=== PATIENT | female | born 1960 | race Caucasian/White ===

== ENCOUNTER 2017-08-23 13:43 | Inpatient (IN) | payer MEDICARE, OTHER ==
[~2017-08-23] VITALS: Ht 165.1 cm; Wt 62.7 kg
[2017-08-23] MEDS ORDERED: ONDANSETRON 4 MG (ZOFRAN) ORAL DISSOLVE TAB PO PRN (16:15)
[2017-08-23] MEDS ORDERED: DICLOFENAC 1% GEL 100 GM (VOLTAREN) TUBE TOP PRN (16:30)
[2017-08-23 18:59] VITALS: BP 118/74
--- NOTE | 2017-08-23 20:00 | PM&R Post Admission Assessment ---
Post Admission Physician Asses The preadmission screen agrees with the post admission assessment that the patient is a good candidate for inpatient rehabilitation. The patient will have a comprehensive program of inpatient rehabilitation with a goal of maximizing level of functional independence prior to discharge home with spouse. The patient will have PT/OT ninety minutes per day, each discipline, five days a week for gait, strengthening, conditioning, balance, ADLs, any patient/family/caregiver training as necessary. Speech therapy to do cognitive assessment and treat as indicated. Rehabilitation nursing to assist with bowel, bladder, skin, wound care, medication administration, pain management. Curtain Framer to assist with discharge planning, community reentry. SCD's and heparin SubCut for DVT prophylaxis. She appears to be well motivated to participate in three hours of therapy a day. She should be able to tolerate three hours of therapy a day from a medical and surgical standpoint. She should benefit from the three hours of therapy a day. She has a reasonable discharge plan, reasonable discharge rehabilitation goals and a supportive family. She has various comorbidities that need to be closely monitored with medications and treatments adjusted on a daily basis as needed. These include: HX of Pulm Embolism Seizure prophylaxis DVT Prophylaxis Hx of breast Ca Postop headaches Barriers to discharge for this patient who had been independent prior to this are for her to be modified independent to supervision for ADLs and mobility skills prior to discharge home with spouse, so as to lessen the burden of the caregivers. Risks for this patient include: 1. Fall 2. Fracture 3. DVT 4. Pulmonary embolism 5. Wound infection 6. Skin breakdown 7. Contractures 8. Poorly controlled pain 9. Urinary retention 10. UTI 11. Respiratory infection 12. Aspiration 13.Postop crani seizures 14. Recurrent headaches Estimated Length of Stay: 14 days Prognosis: Rehab prognosis (Short term) appears good for goal of discharge home with spouse modified independent to supervision for ADLs and mobility skills. JANNETH BECKFORD MD Aug 23, 2017 8:00 pm
[2017-08-23] MEDS: ACETAMINOPHEN 325 MG TABLET/CAPLET (TYLENOL) PO PRN (20:26)
[2017-08-23] MEDS: GABAPENTIN 600 MG (NEURONTIN) TAB PO SCH (20:27)
[2017-08-23] MEDS: DOCUSATE SODIUM 100 MG (COLACE) CAP PO SCH (20:28)
[2017-08-23] MEDS: LEVETIRACETAM 500 MG (KEPPRA) TAB PO SCH (20:29)
[2017-08-23] MEDS: METHOCARBAMOL 500 MG (ROBAXIN) TABLET PO SCH (20:30)
--- NOTE | 2017-08-23 20:30 | HISTORY AND PHYSICAL ---
DATE OF SERVICE: CHIEF COMPLAINT: Difficulty with walking. 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 MRI revealed a mass. The patient was admitted to [facility] and had a resection of a posterior fossa skull base tumor with pathology revealing meningioma. The patient had Keppra and mannitol intraoperatively,and perioperative Ancef. The patient was subsequently placed on subq heparin for DVT prophylaxis and the procedure was done on 08/19/2017. The patient was started on therapies, found to be appropriate for inpatient rehabilitation and referred to inpatient rehabilitation here at [facility] so as to be closer to home. Currently, she is min assist for transfers and gait with a walker. 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 PAST SURGICAL HISTORY: Craniotomy as per above for resection of meningioma, right temporal lobe. Status post cataract extraction cataracts both eyes with insertion of intraocular lens, history of peripheral stem cell transplant. Breast cancer, status post mastectomy followed by chemo and radiation therapy. ALLERGIES: ADHESIVE TAPE, LATEX. FAMILY HISTORY: Noncontributory. SOCIAL HISTORY: is a retired fernandez. They live in a 2-story house in [place], [place]. She had been independent prior to this.PCP Dg [place] REVIEW OF SYSTEMS: Ten-point review of systems significant for weakness, gait imbalance, right temporal headache. MEDICATIONS: ASA 81 mg p.o. daily, Lidoderm patch topically daily, vitamin D 3000 units p.o. daily, calcium carbonate 600 mg p.o. daily, multivitamins with minerals one tablet p.o. daily, Colace 100 mg p.o. b.i.d., Keppra 500 mg p.o. b.i.d. Robaxin 500 mg p.o. b.i.d., Pred Forte 1% 1 to 2 drops to both eyes b.i.d., gabapentin 600 mg p.o. at bedtime, subcutaneous heparin 5000 units q.8 hours for DVT prophylaxis, Voltaren gel applied to the affected area q.i.d. p.r.n. pain, Zofran 4 mg p.o. q.6 hour for nausea and vomiting, OxyIR 5 to 10 mg p.o. q.4 hours p.r.n. severe pain, Tylenol 650 mg p.o. q.4 hours p.r.n. mild pain, vitamin B complex one tablet p.o. daily, Lotemax apply ointment to both eyes at bedtime daily. PHYSICAL EXAMINATION: GENERAL: Significant for a pleasant female lying in bed, alert and oriented, no acute distress. Complaining of right temporal headache. Nursing has been informed, they will bring Tylenol. VITAL SIGNS: She is afebrile, pulse is 89, respirations 18, blood pressure 118/74, O2 saturation 96% on room air. HEENT: Vision, speech, hearing grossly intact. No oral lesion is noted. She has bruising under the right eye. Craniotomy site on the right is healing well with saul in place. NECK: Supple without mass. HEART: Regular rhythm. LUNGS: Chest is clear. ABDOMEN: Soft, nontender. Bowel sounds present. EXTREMITIES: No lower leg edema, no calf tenderness. MUSCULOSKELETAL: The patient has functional active range of motion of all four extremities. She denies any prior joint or spinal surgery. NEUROLOGIC: Cognition exam by ST reveals mild STM loss. Sensation grossly intact to touch. Strength, she has 3+/5 strength in both upper limbs, good plus strength in both lower limbs. IMPRESSION: 1. Ambulatory dysfunction secondary to meningioma status post resection, craniotomy right temporal lobe. 2. Postoperative deep venous thrombosis prophylaxis, on heparin subq. 3. Postoperative seizure prophylaxis, on Keppra p.o. 4. History of breast cancer status post mastectomy with postop Chemo andradiation therapy. 5. History of pulmonary embolism. PLAN: The patient will have a comprehensive program of inpatient rehabilitation with goal of maximizing level of functional independence prior to discharge home with spouse. The patient will have PT, OT 5 days a week, 90 minutes per day each session for 2 weeks for gait, balance, strengthening, conditioning, ADLs, any patient, family, caregiver training necessary, any adaptive equipment training necessary. Speech therapy to do cognitive assessment and treat as indicated 3 to 5 times a week for 30-45 min per day for 2 weeks. Rehabilitation nursing to assist with bowel, bladder, skin, wound care, medication, nutrition and pain management. supervisor ship maintenance services to assist with discharge planning, community reentry. We will ask Dr. Ramsay to follow for any additional medical issues necessary postoperatively, Routine admission labs, Therapy with fall and seizure precautions. Follow up with her neurosurgeon and PCP upon discharge from rehabilitation. ESTIMATED LENGTH OF STAY: Fourteen days. PROGNOSIS: Rehab prognosis appears good for a goal of return home with spouse, modified independent to supervision for ADLs and mobility skills. DIET: Regular. CODE STATUS: Full code. Job ID: [id number] DocumentID: [id number] Dictated Date: 08/23/2017 19:55:11 Band Splitter Date: 08/23/2017 20:30:01 Dictated By: JANNETH BECKFORD MD MTDD
[2017-08-23] MEDS: LIDODERM PATCH REMOVAL TP SCH (20:34)
[2017-08-23] MEDS: prednisoLONE 1% OPTH (PRED FORTE) 5 ML BTL OU SCH (20:59)
[2017-08-24] MEDS: CALCIUM CARBONATE 600 MG (CALCARB) TAB PO SCH (06:19)
[2017-08-24] MEDS: MULTIVIT W/MINERALS TAB (THERAGRAN M) PO SCH (06:19)
[2017-08-24 06:20] VITALS: BP 117/69
--- NOTE | 2017-08-24 08:11 | Consultation ---
History of Present Illness History of Present Illness Patient Consulted On(alice/time) 08/24/17 08:07 Time Seen by Provider: 08:10 History of Present Illness Patient is from [facility]. Patient had diplopia. Patient had an MRI showing a mass. Patient sent to [facility] for surgery last Tuesday. Patient states she had a meningioma. 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 Waiting for report. Family history father heart attack age 75. Mother cervical cancer long time ago. Patient had stents cell transplant and breast cancer right. Patient has dry eyes Allergies and Home Medications Allergies Coded Allergies: adhesive tape (Verified Allergy, Unknown, RASH, 08/23/17) latex (Verified Allergy, Unknown, RASH, 08/23/17) Past Ibrfkgp-[id number]-Qbszdh Hx Patient Social History Alcohol Use: Denies Use Recreational Drug Use: No Smoking Status: Never a Smoker Recent Foreign Travel: No Contact w/Someone Who Travel: No Recent Infectious Disease Expo: No Recent Hopitalizations: Yes Immunizations Up To Date Date of Pneumonia Vaccine: Dec 16, 2014 Date of Influenza Vaccine: May 27, 2017 Seasonal Allergies Seasonal Allergies: No Surgeries History of Surgeries: Yes Surgeries: Breast Respiratory History of Respiratory Disorde: Yes Respiratory Disorders: COPD Cardiovascular History of Cardiac Disorders: Yes Neurological History of Neurological Disord: Yes Reproductive System Sexually Transmitted Disease: No HIV/AIDS: No Female Reproductive Disorders: Denies Genitourinary History of Genitourinary Disor: No Gastrointestinal History of Gastrointestinal Di: No Musculoskeletal History of Musculoskeletal Dis: Yes Musculoskeletal Disorders: Arthritis, Scoliosis Endocrine History of Endocrine Disorders: No HEENT History of HEENT Disorders: Yes HEENT Disorders: Cataract Loss of Vision: Denies Hearing Impairment: Denies Cancer History of Cancer: Yes (GVHD) Cancer: Breast Did You Recieve Any Treatments: Yes Type of Tx Receive: Chemotherapy, Radiation, Surgical Intervention Psychosocial History of Psychiatric Problem: No Integumentary History of Skin or Integumenta: No Family Medical History Family Medial History: FH: cancer 19 MOTHER FH: stroke 19 FATHER Review of Systems-General Constitutional: no symptoms reported EENTM: other (Previously diplopia) Respiratory: other (Lung function 61 percent) Cardiovascular: no symptoms reported Gastrointestinal: no symptoms reported Physical Exam-General Problems Physical Exam Vital Signs Vital Signs - First Documented 08/23/17 18:59 Temp 98.4 Pulse 89 Resp 18 B/P (MAP) 118/74 (89) Pulse Ox 96 O2 Delivery Room Air Capillary Refill : General Appearance: WD/WN Eyes: Bilateral Eye Normal Inspection HEENT: normal ENT inspection Neck: full range of motion Respiratory: chest non-tender, no respiratory distress, no accessory muscle use Cardiovascular: regular rate, rhythm, no murmur Gastrointestinal: non tender, soft Assessment/Plan Assessment/Plan Admission Diagnosis/Plan Brain mass. History of breast cancer. Stem cell transplant. To find out path report from Clinical Quality Measures DVT/VTE Risk/Contraindication: Risk Factor Score Per Nursin RFS Level Per Nursing on Admit: 4+=Very High JANIE MATHIS DO Aug 24, 2017 08:11
[2017-08-24] MEDS: METHOCARBAMOL 500 MG (ROBAXIN) TABLET PO SCH ×2 (08:49→20:57)
[2017-08-24] MEDS: VITAMIN D3 1,000 UNITS (CHOLECALCIFEROL) TABLET PO SCH (08:49)
[2017-08-24] MEDS: ASPIRIN E.C. 81 MG (ECOTRIN) TAB PO SCH (08:49)
[2017-08-24] MEDS: LEVETIRACETAM 500 MG (KEPPRA) TAB PO SCH ×2 (08:49→20:57)
[2017-08-24] MEDS: prednisoLONE 1% OPTH (PRED FORTE) 5 ML BTL OU SCH ×2 (08:51→20:59)
[2017-08-24] MEDS: DOCUSATE SODIUM 100 MG (COLACE) CAP PO SCH ×2 (08:52→20:57)
[2017-08-24] MEDS ORDERED: PATIENT MAY USE OWN MED,SINGLE MED PO SCH (09:00)
[2017-08-24] MEDS: LIDOCAINE (LIDODERM) 5% PATCH TOP SCH (10:00)
--- NOTE | 2017-08-24 10:29 | ST Cognitive Linguistic Eval ---
Speech Evaluation-General Medical Diagnosis s/p Craniotomy (right), Glioblastoma Therapy Diagnosis Therapy Diagnosis: Minimal to Mild Cognitive Deficit Precautions Precautions/Isolations: Seizure, Fall Prevention, Standard Precautions Referral Referring Physician: Dr. Hira Duron Reason for Referral: Evaluation/Treatment Cognitive Evaluation Medical History Pulmonary Embolism, Breast CA, MDS Current History The patient recently underwent a right craniotomy for removal of a posterior fossa skull base tumor. Reviewed History: Yes Speech PLF-Current Status Prior Level of Function The patient denied prior challenges with speech, language, and cognition. Per patient, "I have always had a hard time with people's names. I usually try to associate their name with something I can remember." Subjective The patient was seated upright in recliner upon entrance. The patient was agreeable to the cognitive evaluation, however, stated, "I am so sorry I am so sleepy. That warm shower really makes me want to curl up." (The patient recently completed a shower with OT). The patient is pleasant and cooperative throughout the evaluation. Language Eval: Auditory Comprehends Simple Yes/No Ques: Functional Indent/Objects Multiple Ruiz: Functional Ident/Pics in Multiple Ruiz: Functional Follows 1-Step Commands: Functional Follows Complex Directions: Functional Follows General Conversations: Functional Language Eval: Verbal Language Completes Spontaneous Greeting: Functional Produces Auto, Serial Info: Functional Imitates Simple Words/Phrases: Functional Word Finding: Functional Requests Basic Needs: Functional States Basic Personal Info: Functional The patient stated she speaks slightly more slowly than she did previously, however, stated it is due to the pain she is experiencing around the incision site. Cognitive Patient Orientation The patient is independently oriented to self, location, month, day of week, and year. Objective Cognitive Domain Attention: WNL Memory: Mild (The patient's long-term memory appears to be completely intact. The patient demonstrates high accuracy with short-term memory, however, displays delays in responses and increased difficulty.) Problem Solving: Functional Objective Oral Motor/Speech Production The patient demonstrates slight facial weakness, which may be secondary to edema following her craniotomy. The patient does speak at a reduced rate, however, stated this is due to the pain she experiences from the surgery and swelling. The patient remains 100% intelligible in known and unknown contexts. Impression The patient demonstrates a minimum to mild deficit in her memory abilities. The patient's long-term memory appears to be completely intact. The patient demonstrates high accuracy with short-term memory, however, displays delays in responses and increased difficulty. Due to the difficulties, the speech pathology plans to provide treatment on a short-term basis to make sure deficits resolve. Communication/Social Cognition Comprehension: 6 Expression: 5 Social Interaction: 6 Problem Solvin Memory: 4 Speech Patient Assess Expression of Ideas/Wants: Expression (4) Understanding [place] Content: Understands (4) Brief Interview-Mental Status: Yes Repetition of Three Words: Three (3) Temporal Orientation: Year: Correct (3) Temporal Orientation: Month: Accurate within 5 days(2) Temporal Orientation: Day: Correct (1) Recall : Wear to say "Sock": Yes, no cue required (2) Recall : Color: Yes, no cue required (2) Recall : Bed: Yes, no cue required (2) Speech Short Term Goals Short Term Goals Short Term Goals 1. The patient will recall three functional memory strategies for use at home with 90% accuracy, independently. 2. The patient will recall three items immediately and following a five minute delay with 80% accuracy and mild clinician verbal prompting. Time Frame-STG: Three Days Speech Penitentiary Goals Mechanical Maintenance Technician Goals 1. The patient will demonstrate improved cognitive skill, most notably, short- term memory for recall of ADL information for increased safety and function in the least restrictive setting. Time Frame: One Week Comprehension: 6 Expression: 5 Social Interaction: 6 Problem Solvin Memory: 5 Speech-Plan Treatment Plan Speech Therapy Treatment Plan: Continue Plan of Care Continue skilled speech pathology to target functional memory strategies for use at home. Treatment Duration: Aug 31, 2017 Frequency: 3 times per week Estimated Hrs Per Day: .5 hour per day Rehab Potential: Fair Safety Risks/Education Teaching Recipient: Patient Teaching Methods: Discussion Response to Teaching: Verbalize Understanding Education Topics Provided: Results, Recommendations, Plan of Care Time Speech Therapy Time In: 09:30 Speech Therapy Time Out: 09:45 Total Billed Time: 15 Billed Treatment Time 1, HELDER PEOPLES Aug 24, 2017 10:29
[2017-08-24] MEDS ORDERED: VITA1TAB17 PO (10:31)
[2017-08-24] MEDS ORDERED: MELO15TA39 PO (10:31)
[2017-08-24] MEDS ORDERED: ASPI-983 PO (10:31)
[2017-08-24] MEDS ORDERED: LIDO700A45 TP (10:31)
[2017-08-24] MEDS ORDERED: ACET325T38 PO (10:31)
[2017-08-24] MEDS ORDERED: ALEN70TA47 PO (10:31)
[2017-08-24] MEDS ORDERED: TROL85CR TP (10:31)
[2017-08-24] MEDS ORDERED: CARB15DR3 OU (10:31)
[2017-08-24] MEDS ORDERED: CALC1TAB PO (10:31)
[2017-08-24] MEDS ORDERED: LOTE3.5O OU (10:31)
[2017-08-24] MEDS ORDERED: CHOL10007 PO (10:31)
[2017-08-24] MEDS ORDERED: GABA-488 PO (10:31)
--- NOTE | 2017-08-24 10:48 | Physical Therapy Evaluation ---
PT Evaluation-General Medical Diagnosis Admission Date Aug 23, 2017 at 18:13 Medical Diagnosis: s/p Craniotomy (right), Glioblastoma Onset Date: Aug 19, 2017 Therapy Diagnosis Therapy Diagnosis: Debility, impaired functional mobility, strength, and activity tolerance Height/Weight Height (Feet): 5 Height (Inches): 5.00 Weight (Pounds): 137 Weight (Ounces): 7.0 Precautions Precautions/Isolations: Seizure, Fall Prevention, Standard Precautions Referral Physician: Hira Duron MD Reason for Referral: Evaluation/Treatment Medical History Pertinent Medical History: Arthritis, COPD Additional Medical History PAST MEDICAL HISTORY: Chronic GVHD complicating bone marrow transplantation, extensive bilateral dry eyes, 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 PAST SURGICAL HISTORY: Craniotomy as per above for resection of meningioma, right temporal lobe. Status post cataract extraction cataracts both eyes with insertion of intraocular lens, history of peripheral stem cell transplant. Breast cancer, status post mastectomy followed by chemo and radiation therapy. Current History Pt presented with diplopia and an MRI found a mass and was admitted to [facility] to perform craniotomy. Reviewed History: Yes Social History Home: Multilevel Current Living Status: Spouse Entry Into Home: Level Entry PT Steps Into Home: 0 PT Steps Inside Home: 12 Pt uses the stairs rarely. Prior/Core FIM Prior Level of Function Functional [place] Measure 0=Not Assessed/NA 4=Minimal Assistance 1=Total Assistance 5=Supervision or Setup 2=Maximal Assistance 6=Modified [place] 3=Moderate Assistance 7=Complete [place] Bed Mobility: 7 Transfers (B,C,W/C) (FIM): 7 Gait: 7 Locomotion: 7 PT Evaluation-Current Subjective Pt is sitting in recliner in room pre eval and agrees to PT with no reports of pain. Pain Numeric Pain Scale: 0-No Pain Location: No Pain Reported Pt/Family Goals [place] at home. Objective Patient Orientation: Person, Place, Situation Pt reports feeling tired and asks to go to bed numerous times throughout session. ROM/Strength ROM Lower Extremities WFL calderon Strenght Lower Extremities Grossly 4+/5 calderon Neuromuscular (Tone, Coordination, Reflexes) NT Sensory Vision: Functional Hearing: Functional Sensation Right Lower Extremit: Intact Sensation Left Lower Extremity: Intact Transfers Functional [place] Measure 0=Not Assessed/NA 4=Minimal Assistance 1=Total Assistance 5=Supervision or Setup 2=Maximal Assistance 6=Modified [place] 3=Moderate Assistance 7=Complete IndependenceIRFPAI Quality Coding Scale 6 Independent with activity with or without an assistive device 5 Patient requires set up or clean up by helper. Patient completes activity by themselves 4 Supervision or touching assist (CGA). [place] provide cues , steadying assist 3 The helper provides less than half the effort to complete the activity 2 The helper provides more than half the effort to complete the activity 1 Dependent. The helper does all the effort to complete an activity 7 Patient refused to complete or attempt activity 9 The patient did not perform the activity before the current illness or injury 88 Not attempted due to Medical conditions or safety concerns Transfers (B, C, W/C) (FIM): 4 Scootin Rollin Roll Left to Right (QC): 4 Supine to/from Sit: 5 Sit to/from Stand: 4 Sit to Lying (QC): 4 Lying to Sitting/Side of Bed(Q: 4 Sit to Stand (QC): 4 Chair/Lqd-te-Ptria Xfer(QC): 4 Car Transfer (QC): 4 SBA required for bed mobility and CGA needed for transfers. Gait Does the Patient Walk?: Yes Mode of Locomotion: Walk Anticipated Mode of Locomotion: Walk Gait (FIM): 4 Walk 10 feet (QC): 4 Walk 50 ft with 2 Turns(QC): 4 Walk 150 ft (QC): 4 Walking 10ft/uneven surface-QC: 4 Distance: 150 feet x1, 100 feet x1, 75 feet x1 Gait Level of Assist: 4 Gait Persons Needed: 1 Gait Assistive Device: FWW Comments/Gait Description Pt ambulates using reciprocal gait pattern and is steady throughout gait pattern. Wheelchair Training Does the Pt Use a Wheelchair?: No Stairs Stairs (FIM): 4 #of Steps: 12 Level of Assist: 4 1 Step (curb) (QC): 4 4 Steps (QC): 4 12 Steps (QC): 4 Balance Sitting Static: Normal Sitting Dynamic: Normal Standing Static: Good Standing Dynamic: Good Picking up an Object (QC): 4 Treatment Pt performed NuStep for 9 min at 4 workload Sitting exercise: Ankle pumps 10 x2 BLE, Heel slides 10 x2 BLE, Hip flexion 10 x2 BLE, Hip adduction/abduction 10 x2 BLE, LAQ 10 x2 BLE Assessment/Needs Pt demonstrates minimal weakness in BLE. Pt cannot achieve full AROM during hip flexion of the LLE. Pt perseverates on how tired she is and desire to lay down. Pt will benefit from PT services to address debility and functional mobility. Patient also scored a 24/28 indicating a low fall risk using an assistive device. Rehab Potential: Fair Post Rehab Potential-Barriers: Glioblastoma Equipment Needs FWW PT Short Term Goals Short Term Goals Time Frame: Aug 31, 2017 Transfers (B,C,W/C) (FIM): 5 Gait (FIM): 5 Gait Distance Comment: 200 feet Gait Level of Assist: 5 Gait Assistive Device: FWW PT Sales Contract Administrator Goals Skilled Nursing Goals PT Skilled Nursing Goals Time Frame: Sep 14, 2017 Transfers (B,C,W/C) (FIM): 6 Sit to Lying (QC): 6 Lying-Sitting on Side/Bed(QC): 6 Sit to Stand (QC): 6 Rollin Roll Left to Right (QC): 6 Chair/Oje-mc-Bdjlc Xfer(QC): 6 Car Transfer (QC): 6 Does the Patient Walk: Yes Gait (FIM): 6 Distance: 150 feet Walk 10 feet (QC): 6 Walk 10ft-Uneven Surface(QC): 6 Walk 50ft with 2 Turns (QC): 6 Walk 150 ft (QC): 6 Gait Level of Assist: 6 Gait Assistive Device: FWW Does the Pt use WC or Scooter?: No Stairs (FIM): 5 # of Steps: 12 1 Step (curb) (QC): 4 4 Steps (QC): 4 12 Steps (QC): 4 Stairs Level Of Assist: 5 Picking up an Object (QC): 5 PT Plan Problem List Problem List: Activity Tolerance, Functional Strength, Safety, Balance, Gait, Transfer, Bed Mobility, ROM Treatment/Plan Treatment Plan: Continue Plan of Care Treatment Plan: Bed Mobility, Education, Functional Activity Dorothy, Functional Strength, Group Therapy, Gait, Safety, Therapeutic Exercise, Transfers Treatment Duration: Sep 14, 2017 Frequency: At least 5 of 7 days/Wk (IRF) Estimated Hrs Per Day: 1.5 hours per day Patient and/or Family Agrees t: Yes Safety Risks/Education Patient Education: Gait Training, Transfer Techniques, Steps, Correct Positioning, Disease Process, Safety Issues Teaching Recipient: Patient Teaching Methods: Demonstration, Discussion Response to Teaching: Reinforcement Needed Discharge Recommendations Plan Pt will perform bed mobility and transfer training, gait and stair training, strength and activity tolerance training, balance training and education in order to promote independence at home. Therapy D/C Recommendations: Home w/ Family Support Equpiment Recommendations-D/C: Front Wheeled Walker Time/GCodes Time In: 1000 Time Out: 1100 Total Billed Treatment Time: 60 Total Billed Treatment 1 visit 30 min EVH 30 min EX AKILAH BRYAN PT Aug 24, 2017 10:48
--- NOTE | 2017-08-24 11:15 | Occupational Therapy Eval ---
OT Evaluation-General/PLF Medical Diagnosis Admission Date Aug 23, 2017 at 18:13 Medical Diagnosis: s/p Craniotomy (right), Glioblastoma Onset Date: Aug 16, 2017 Therapy Diagnosis Therapy Diagnosis: Weakness Height/Weight Height (Feet): 5 Height (Inches): 5.00 Weight (Pounds): 137 Weight (Ounces): 7.0 Precautions Precautions/Isolations: Seizure, Fall Prevention, Standard Precautions Safety Interventions: None Weight Bear Status Weight Bearing Restriction: Weight Bearing/Tolerated Referral Physician: Hira Duron MD Referral Reason: Activity Tolerance, Self Care, Evaluation/Treatment, Strengthening/ROM Medical History Additional Medical History pulmonary embolism, seizures, DVT, breast CA, peripheral stem cell transplant, mastectomy Current History Pt. had resection of glioblastoma multiforme in brain mass. Reviewed History: Yes Social History Home: Single Level Current Living Status: Spouse Entry Into Home: Level Entry Steps Into Home: 0 Steps Inside Home: 12 Pt. states that she does not have to use the stairs in the home. ADL-Prior Level of Function ADL PLOF Comments Pt. states that she was independent with basic self care skills prior to this surgery. DME/Equipment: Shower DME/Equipment Comments Pt. states that she does not have any equipment at home. Drive Self: Yes OT Current Status Subjective Pt. reports a "throbbing" sensation when working with OT. Nursing aware and has already given pt. pain medication. Appearance Pt. in bed. Alert and oriented. Agrees to work with OT. Mental Status/Objective Patient Orientation: Person, Place pt. does occasionally repeat herself. States that she is "bad" with names. Current Upper Extremity ROM WFL Upper Extremity Strength 3/5 bilateral UE strength ADL-Treatment Functional [place] Measure 0=Not Assessed/NA 4=Minimal Assistance 1=Total Assistance 5=Supervision or Setup 2=Maximal Assistance 6=Modified [place] 3=Moderate Assistance 7=Complete IndependenceIRFPAI Quality Coding Scale 6 Independent with activity with or without an assistive device 5 Patient requires set up or clean up by helper. Patient completes activity by themselves 4 Supervision or touching assist (CGA). [place] provide cues , steadying assist 3 The helper provides less than half the effort to complete the activity 2 The helper provides more than half the effort to complete the activity 1 Dependent. The helper does all the effort to complete an activity 7 Patient refused to complete or attempt activity 9 The patient did not perform the activity before the current illness or injury 88 Not attempted due to Medical conditions or safety concerns Grooming (FIM): 4 (SBA to brush teeth in stance at sink and min assist to comb hair due to saul and incision in head.) Oral Hygiene (QC): 4 Bathing (FIM): 4 (Min assist to wash hair and CGA in stance for balance. Pt. is able to wash all parts.) Shower/Bathe Self (QC): 4 Upper Body Dressing (FIM): 5 Upper Body Dressing (QC): 4 Lower Body Dressing (FIM): 4 (CGA in stance.) Lower Body Dressing (QC): 4 On/Off Footwear (QC): 5 Toileting (FIM): 4 (CGA in stance.) Toileting Hygiene (QC): 4 Transfers (B, C, W/C) (FIM): 4 Toilet/Commode Transfer (FIM): 4 Toilet Transfer (QC): 4 Shower Transfer (FIM): 4 Education OT Patient Education: Correct positioning, Modified ADL techniques, Progress toward Goal/Update tx plan, Purpose of tx/functional activities, Reviewed precautions, Rehab process, Transfer techniques Teaching Recipient: Patient Teaching Methods: Demonstration, Discussion Response to Teaching: Verbalize Understanding, Return Demonstration OT Short Term Goals Short Term Goals Time Frame: Aug 31, 2017 Eating(FIM): 5 Grooming(FIM): 5 Bathing(FIM): 5 Upper Body Dressing(FIM): 5 Lower Body Dressing(FIM): 5 Toileting(FIM): 5 Transfers (B,C,W/C) (FIM): 5 Toilet/Commode Transfer(FIM): 5 Shower Transfer(FIM): 5 Additional Short Term Goals: 1-Demonstrate ADL Tasks, 2-Verbalize Understanding , 3-ImproveStrength/Dorothy 1=Demonstrate adherence to instructed precautions during ADL tasks. 2=Patient will verbalize/demonstrate understanding of assistive devices/ modifications for ADL. 3=Patient will improve strength/tolerance for activity to enable patient to perform ADL's. OT [facility] Goals Marketing Ambassador Goals Time Frame: Sep 07, 2017 Eating (FIM): 6 Eating (QC): 6 Groomin Oral Hygiene (QC): 6 Bathing(FIM): 5 Shower/Bathe Self (QC): 5 Upper Body Dressing(FIM): 6 Upper Body Dressing (QC): 6 Lower Body Dressing(FIM): 6 Lower Body Dressing (QC): 6 On/Off Footwear (QC): 6 Toileting(FIM): 6 Toileting Hygiene (QC): 6 Transfers (B,C,W/C) (FIM): 6 Toilet/Commode Transfer(FIM): 6 Toilet/Commode Transfer (QC): 6 Shower Transfer(FIM): 5 Comprehension(FIM): 6 Expression (FIM): 5 Social Interaction(FIM): 6 Problem Solving(FIM): 6 Memory(FIM): 5 1=Demonstrate adherence to instructed precautions during ADL tasks. 2=Patient will verbalize/demonstrate understanding of assistive devices/ modifications for ADL. 3=Patient will improve strength/tolerance for activity to enable patient to perform ADL's. OT Education/Plan Problem List/Assessment Assessment: Decreased Activ Tolerance, Impaired I ADL's, Impaired Self-Care Skills Discharge Recommendations Plan/Recommendations: Continue POC Therapy D/C Recommendations: Home w/ Family Support, Occupational Therapy Home Care Equpiment Recommendations-D/C: Bath Chair Target Placement Home with spouse. Treatment Plan/Plan of Care Treatment,Training & Education: Yes Patient would benefit from OT for education, treatment and training to promote independence in ADL's, mobility, safety and/or upper extremity function for ADL' s. Plan of Care: ADL Retraining, Functional Mobility, Group Exercise/Act as Ind, UE Funct Exercise/Act Treatment Duration: Sep 07, 2017 Frequency: At least 5 of 7 days/Wk (IRF) Estimated Hrs Per Day: 1.5 hours per day Agreement: Yes Rehab Potential: Fair Time/GCodes Start Time: 08:30 Stop Time: 09:30 Total Time Billed (hr/min): 60 Billed Treatment Time 1, EVM x 15minutes, ADL x 45minutes TAHIR MARTINEZ OT Aug 24, 2017 11:15
--- NOTE | 2017-08-24 14:19 | PM & R (SOAP) Progress Note ---
Subjective Time Seen by Provider: 08:00 Subjective/Events-last exam Patient was seen in her room this AM Clarified Diagnosis with RN Appreciate therapy notes. patient min assist for transfers Review of Systems HEENT: Head Aches Neurological: Weakness Objective Exam Last Set of Vital Signs Vital Signs Date Time Temp Pulse Resp B/P (MAP) Pulse Ox O2 Delivery O2 Flow Rate FiO2 08/24/17 08:49 Room Air 08/24/17 06:20 98.4 71 17 117/69 (85) 96 Capillary Refill : I&O Intake and Output 08/24/17 00:00 Daily Weight Change Yes, 2-13 lbs General: Alert, Oriented X3, Cooperative, No Acute Distress, Other (crani site healing well) HEENT: Atraumatic, PERRLA, EOMI, Mucous Memb Moist/[place], Other (as per above) Neck: Supple, No JVD Lungs: Clear to Auscultation Heart: Regular Rate Abdomen: Normal Bowel Sounds, Soft Extremities: No Edema Skin: Other (crani site healing well) Neuro: Sensation Intact, Other (Mild STM loss Strength 3+/5 BUES 4+/5 BLES) Assessment/Plan Assessment S/P Crani and excision rt temtpral Meningioma Post op Headaches Post op anemia Post op seizure prophylaxis on Keppra Post op DVT Prophylaxis on Heparin SQ HX of Breast CA Plan Continue PT/OT/ST Team Conference held earlier this afternoon-See report for full functional update and POC and ELOS Patient has f/u with Physician at [facility] next week JANNETH BECKFORD MD Aug 24, 2017 14:19
--- NOTE | 2017-08-24 15:16 | Therapy Group Daily Note ---
Therapy Daily Group Note Patient Education Topic Other List Below (vehicle transfer techniques) Exercises LE Seated Exercise Other/Notes Pt. participated in PT OT group this date. Pt. came and went via FWW. Pt. was pleasant , introducing self and sharing special memories of her Mother. Pts. were introduced to vehicle TRF technique. TRF equipment present with pts taking turns TRFing and out if they so desired and were candidates for car TRF. All pts were very social and enjoyed coffee and hot chocolate as they shared and encouraged one another for a short time during group. This pt. to her room with SBA and FWW after. In bed with call garvin . Start Time: 13:00 Stop Time: 14:15 Total Billed Treatment Time: 75 Total Billed Treatment 1,GRP RENEE SALINAS IMPLEMENTATION MANAGER Aug 24, 2017 15:16
[2017-08-24 18:23] VITALS: BP 119/78
[2017-08-24] MEDS: LOTEPREDNOL OPTH OU SCH (20:55)
[2017-08-24] MEDS: GABAPENTIN 600 MG (NEURONTIN) TAB PO SCH (20:57)
[2017-08-24] MEDS: LIDODERM PATCH REMOVAL TP SCH (20:58)
[2017-08-24] MEDS: ACETAMINOPHEN 325 MG TABLET/CAPLET (TYLENOL) PO PRN (21:00)
[2017-08-25 05:35] VITALS: BP 125/76
[2017-08-25 06:27] LABS: BASOPHILS # (AUTO) 0.1 10^3/uL (0.0-0.1); BASOPHILS % (AUTO) 1 % (0-10); EOSINOPHILS # (AUTO) 0.4 10^3/uL (0.0-0.3); EOSINOPHILS % (AUTO) 4 % (0-10); HEMATOCRIT 31 % (35-52); HEMOGLOBIN 10.3 G/DL (11.5-16.0); LYMPHOCYTES # (AUTO) 3.5 X 10^3 (1.0-4.0); LYMPHOCYTES % (AUTO) 35 % (12-44); MEAN CORPUSCULAR HEMOGLOBIN 30 PG (25-34); MEAN CORPUSCULAR HGB CONC 33 G/DL (32-36); MEAN CORPUSCULAR VOLUME 91 FL (80-99); MEAN PLATELET VOLUME 10.2 FL (7.4-10.4); MONOCYTES % (AUTO) 10 % (0-12); NEUTROPHILS # (AUTO) 5.2 X 10^3 (1.8-7.8); NEUTROPHILS % (AUTO) 51 % (42-75); PLATELET COUNT 406 10^3/uL (130-400); RED BLOOD COUNT 3.46 10^6/uL (4.35-5.85); RED CELL DISTRIBUTION WIDTH 14.7 % (10.0-14.5); WHITE BLOOD COUNT 10.2 10^3/uL (4.3-11.0)
[2017-08-25] MEDS: CALCIUM CARBONATE 600 MG (CALCARB) TAB PO SCH (06:34)
[2017-08-25] MEDS: MULTIVIT W/MINERALS TAB (THERAGRAN M) PO SCH (06:34)
[2017-08-25 06:56] LABS: ALANINE AMINOTRANSFERASE 64 U/L (0-55); ALBUMIN 3.6 GM/DL (3.2-4.5); ALKALINE PHOSPHATASE 122 U/L (40-136); BILIRUBIN,TOTAL 0.4 MG/DL (0.1-1.0); BUN/CREATININE RATIO 15; CALCIUM 9.4 MG/DL (8.5-10.1); CARBON DIOXIDE 22 MMOL/L (21-32); CHLORIDE 103 MMOL/L (98-107); CREATININE SERUM 0.78 MG/DL (0.60-1.30); GFR ESTIMATED > 60; GLUCOSE 94 MG/DL (70-105); POTASSIUM 4.1 MMOL/L (3.6-5.0); SODIUM 140 MMOL/L (135-145); TOTAL PROTEIN 6.5 GM/DL (6.4-8.2)
--- NOTE | 2017-08-25 08:12 | Progress Note (SOAP) ---
Subjective Time Seen by Provider: 08:07 Subjective/Events-last exam Brain tumor. Patient had pain right side of face. Patient had a meningioma removed Objective Exam Vital Signs Date Time Temp Pulse Resp B/P (MAP) Pulse Ox O2 Delivery O2 Flow Rate FiO2 08/25/17 05:35 97.9 80 17 125/76 (92) 96 Room Air 08/24/17 21:00 Room Air 08/24/17 18:23 97.6 73 16 119/78 (92) 94 Room Air 08/24/17 08:49 Room Air I & O 08/25/17 07:00 Intake Total 1860 ml Output Total 1600 ml Balance 260 ml Capillary Refill : General Appearance: No Apparent Distress, Thin Results Lab Laboratory Tests 08/25/17 05:30: White Blood Count 10.2, Red Blood Count 3.46L, Hemoglobin 10.3L, Hematocrit 31L , Mean Corpuscular Volume 91, Mean Corpuscular Hemoglobin 30, Mean Corpuscular Hemoglobin Concent 33, Red Cell Distribution Width 14.7H, Platelet Count 406H, Mean Platelet Volume 10.2, Neutrophils (%) (Auto) 51, Lymphocytes (%) (Auto) 35 , Monocytes (%) (Auto) 10, Eosinophils (%) (Auto) 4, Basophils (%) (Auto) 1, Neutrophils # (Auto) 5.2, Lymphocytes # (Auto) 3.5, Monocytes # (Auto) 1.0, Eosinophils # (Auto) 0.4H, Basophils # (Auto) 0.1, Sodium Level 140, Potassium Level 4.1, Chloride Level 103, Carbon Dioxide Level 22, Anion Gap 15H, Blood Urea Nitrogen 12, Creatinine 0.78, Estimat Glomerular Filtration Rate > 60, BUN/ Creatinine Ratio 15, Glucose Level 94, Calcium Level 9.4, Total Bilirubin 0.4, Aspartate Amino Transf (AST/SGOT) 24, Alanine Aminotransferase (ALT/SGPT) 64H, Alkaline Phosphatase 122, Total Protein 6.5, Albumin 3.6 Assessment/Plan Assessment/Plan Assess & Plan/Chief Complaint Brain mass. History of breast cancer. Stem cell transplant. To find out path report from . . Brain tumor meningioma. History of breast cancer. Stem cell transplant. Patient had some pain in the right side of face. To monitor Clinical Quality Measures DVT/VTE Risk/Contraindication: Risk Factor Score Per Nursin RFS Level Per Nursing on Admit: 4+=Very High JANIE MATHIS DO Aug 25, 2017 08:12
[2017-08-25] MEDS: VITAMIN D3 1,000 UNITS (CHOLECALCIFEROL) TABLET PO SCH (08:57)
[2017-08-25] MEDS: METHOCARBAMOL 500 MG (ROBAXIN) TABLET PO SCH ×2 (08:57→21:13)
[2017-08-25] MEDS: ASPIRIN E.C. 81 MG (ECOTRIN) TAB PO SCH (08:57)
[2017-08-25] MEDS: DOCUSATE SODIUM 100 MG (COLACE) CAP PO SCH ×2 (08:57→21:11)
[2017-08-25] MEDS: LEVETIRACETAM 500 MG (KEPPRA) TAB PO SCH ×2 (08:57→21:11)
[2017-08-25] MEDS: LIDOCAINE (LIDODERM) 5% PATCH TOP SCH (09:00)
[2017-08-25] MEDS: prednisoLONE 1% OPTH (PRED FORTE) 5 ML BTL OU SCH ×2 (09:00→21:13)
--- NOTE | 2017-08-25 09:37 | PM & R (SOAP) Progress Note ---
Subjective Time Seen by Provider: 07:49 Subjective/Events-last exam Patient was seen in her room this AM. Patient min assist for transfers Patient concerned re rt ear popping last night now resolved No visible drainage noted externally Patient reassured and hearing functional Objective Exam Last Set of Vital Signs Vital Signs Date Time Temp Pulse Resp B/P (MAP) Pulse Ox O2 Delivery O2 Flow Rate FiO2 08/25/17 09:00 Room Air 08/25/17 05:35 97.9 80 17 125/76 (92) 96 Capillary Refill : I&O Intake and Output 08/25/17 00:00 Intake Total 1160 ml Output Total 1000 ml Balance 160 ml Intake Oral 1160 ml Output Urine Total 1000 ml # Voids 2 General: Alert, Oriented X3, Cooperative, No Acute Distress, Other (crani site healing well) HEENT: Atraumatic, PERRLA, EOMI, Mucous Memb Moist/[place], Other (as per above) Neck: Supple, No JVD Lungs: Clear to Auscultation Heart: Regular Rate Abdomen: Normal Bowel Sounds, Soft Extremities: No Edema Skin: Other (crani site healing well) Neuro: Sensation Intact, Other (Mild STM loss Strength 3+/5 BUES 4+/5 BLES) Results Lab Laboratory Tests 08/25/17 05:30: White Blood Count 10.2, Red Blood Count 3.46L, Hemoglobin 10.3L, Hematocrit 31L , Mean Corpuscular Volume 91, Mean Corpuscular Hemoglobin 30, Mean Corpuscular Hemoglobin Concent 33, Red Cell Distribution Width 14.7H, Platelet Count 406H, Mean Platelet Volume 10.2, Neutrophils (%) (Auto) 51, Lymphocytes (%) (Auto) 35 , Monocytes (%) (Auto) 10, Eosinophils (%) (Auto) 4, Basophils (%) (Auto) 1, Neutrophils # (Auto) 5.2, Lymphocytes # (Auto) 3.5, Monocytes # (Auto) 1.0, Eosinophils # (Auto) 0.4H, Basophils # (Auto) 0.1, Sodium Level 140, Potassium Level 4.1, Chloride Level 103, Carbon Dioxide Level 22, Anion Gap 15H, Blood Urea Nitrogen 12, Creatinine 0.78, Estimat Glomerular Filtration Rate > 60, BUN/ Creatinine Ratio 15, Glucose Level 94, Calcium Level 9.4, Total Bilirubin 0.4, Aspartate Amino Transf (AST/SGOT) 24, Alanine Aminotransferase (ALT/SGPT) 64H, Alkaline Phosphatase 122, Total Protein 6.5, Albumin 3.6 Assessment/Plan Assessment S/P Crani and excision rt temtpral Meningioma Post op Headaches Post op anemia Post op seizure prophylaxis on Keppra Post op DVT Prophylaxis on Heparin SQ HX of Breast CA Plan Continue PT/OT/ST Team Conference held yesterday-See report for full functional update and POC and ELOS Patient has f/u with Physician at [facility] next week Do otoscopic exam if ant further complaints re above JANNETH BECKFORD MD Aug 25, 2017 09:37
--- NOTE | 2017-08-25 10:17 | Speech Therapy Daily Note ---
Speech Daily Progress Note Subjective Date Seen by Provider: Aug 25, 2017 Time Seen by Provider: 08:30 The patient was seated upright in bed, watching TV, upon entrance. The patient greeted the clinician approximately and was agreeable to participation in the cognitive treatment session. Per patient, "I am going to shut this TV off. My attention tends to wonder and this TV will make that more difficult." This statements demonstrates improved awareness of known deficits. Assessment Assessment Current Status: Good Progress Treatment Plan Continue Plan of Care Communication Comprehension: 6 Expression: 5 Social Cognition Social Interaction: 6 Problem Solvin Memory: 4 Speech Short Term Goals Short Term Goals Short Term Goals 1. The patient will recall three functional memory strategies for use at home with 90% accuracy, independently. 2. The patient will recall three items immediately and following a five minute delay with 80% accuracy and mild clinician verbal prompting. Time Frame-STG: Three Days Speech Meter Installer Goals Meter Installer Goals 1. The patient will demonstrate improved cognitive skill, most notably, short- term memory for recall of ADL information for increased safety and function in the least restrictive setting. Time Frame: One Week Comprehension: 6 Expression: 5 Social Interaction: 6 Problem Solvin Memory: 5 Speech-Plan Treatment Plan Speech Therapy Treatment Plan: Continue Plan of Care Continue skilled speech pathology to target functional memory problem solving. Treatment Duration: Aug 31, 2017 Frequency: 3 times per week Estimated Hrs Per Day: .5 hour per day Rehab Potential: Fair Safety Risks/Education Teaching Recipient: Patient Teaching Methods: Discussion Response to Teaching: Verbalize Understanding Education Topics Provided: Memory Strategies Time Speech Therapy Time In: 08:30 Speech Therapy Time Out: 09:00 Total Billed Time: 30 Billed Treatment Time 1, HELDER ASHER Aug 25, 2017 10:17
--- NOTE | 2017-08-25 11:01 | Physical Therapy Daily Note ---
PT Daily Note-Current Subjective Pt is laying in bed pre tx and has no complaints of pain and agrees to PT. Pain Numeric Pain Scale: 0-No Pain Location: No Pain Reported Appearance Pt is laying in bed post tx with nurse call, phone, and tray within reach. Mental Status Patient Orientation: Normal For Age Transfers Functional [place] Measure 0=Not Assessed/NA 4=Minimal Assistance 1=Total Assistance 5=Supervision or Setup 2=Maximal Assistance 6=Modified [place] 3=Moderate Assistance 7=Complete IndependenceIRFPAI Quality Coding Scale 6 Independent with activity with or without an assistive device 5 Patient requires set up or clean up by helper. Patient completes activity by themselves 4 Supervision or touching assist (CGA). [place] provide cues , steadying assist 3 The helper provides less than half the effort to complete the activity 2 The helper provides more than half the effort to complete the activity 1 Dependent. The helper does all the effort to complete an activity 7 Patient refused to complete or attempt activity 9 The patient did not perform the activity before the current illness or injury 88 Not attempted due to Medical conditions or safety concerns Transfers (B, C, W/C) (FIM): 5 Sit to/from Stand: 5 Bed to/from Chair: 5 Pt requires SBA for transfers. Gait Training Does the Patient Walk?: Yes Gait (FIM): 5 Distance: 200 feet x1, 150 feet x1 Gait Level of Assist: 5 Gait Persons Needed: 1 Gait Assistive Device: None Pt is able to walk 200 feet without use of assistive device. Pt slows gait during cognitive task. No LOB or unsteadiness. Wheelchair Training Does the Pt Use a Wheelchair?: No Exercises NuStep Minutes: 15 NuStep Workload: 4 Treatments Pt performed the Lopez Balance Test, gait training, and LE exercise. Assessment Current Status: Good Progress Pt scored a 53/56 on the Lopez Balance Test, indicating low fall risk. Pt does not need an AD during ambulation. Pt slows gait during cognitive task, but is safe throughout gait cycle. PT Short Term Goals Short Term Goals Time Frame: Aug 31, 2017 Transfers (B,C,W/C) (FIM): 5 Gait (FIM): 5 Gait Distance Comment: 200 feet Gait Level of Assist: 5 Gait Assistive Device: FWW PT Senior Living Goals Senior Living Goals PT Senior Living Goals Time Frame: Sep 14, 2017 Transfers (B,C,W/C) (FIM): 6 Sit to Lying (QC): 6 Lying-Sitting on Side/Bed(QC): 6 Sit to Stand (QC): 6 Rollin Roll Left to Right (QC): 6 Chair/Wsx-ij-Juyis Xfer(QC): 6 Car Transfer (QC): 6 Does the Patient Walk: Yes Gait (FIM): 6 Distance: 150 feet Walk 10 feet (QC): 6 Walk 10ft-Uneven Surface(QC): 6 Walk 50ft with 2 Turns (QC): 6 Walk 150 ft (QC): 6 Gait Level of Assist: 6 Gait Assistive Device: FWW Does the Pt use WC or Scooter?: No Stairs (FIM): 5 # of Steps: 12 1 Step (curb) (QC): 4 4 Steps (QC): 4 12 Steps (QC): 4 Stairs Level Of Assist: 5 Picking up an Object (QC): 5 PT Plan Problem List Problem List: Activity Tolerance, Functional Strength, Safety, Balance, Gait, Transfer, Bed Mobility, ROM Treatment/Plan Treatment Plan: Continue Plan of Care Treatment Plan: Bed Mobility, Education, Functional Activity Dorothy, Functional Strength, Group Therapy, Gait, Safety, Therapeutic Exercise, Transfers Treatment Duration: Sep 14, 2017 Frequency: At least 5 of 7 days/Wk (IRF) Estimated Hrs Per Day: 1.5 hours per day Patient and/or Family Agrees t: Yes Safety Risks/Education Patient Education: Gait Training, Transfer Techniques, Correct Positioning, Safety Issues Teaching Recipient: Patient Teaching Methods: Demonstration, Discussion Response to Teaching: Reinforcement Needed Time/GCodes Time In: 1000 Time Out: 1100 Total Billed Treatment Time: 60 Total Billed Treatment 1 visit 15 min EX 15 min GT 30 min AKILAH CORTES PT Aug 25, 2017 11:01
--- NOTE | 2017-08-25 11:43 | Individualized Plan of Care ---
Individualized Plan of Care Rehab Nursing IPOC Order Admission Date Aug 23, 2017 at 18:13 Current Orders Orders Admission-Acute Rehab Unit (08/23/17 16:07) Vital Signs: Routine 08,16,00 (08/23/17 16:07) Environmental Associate-Inpt Rehab (08/23/17 16:07) Rehab Nursing Orders-Ipoc (08/23/17 16:07) Physical Therapy Rehab Orders (08/23/17 16:07) Occupational Therapy Rehab Ord (08/23/17 16:07) Speech Therapy Rehab Orders (08/23/17 16:07) General/Regular (08/23/17 Dinner) Turn And Reposition Q2HR (08/23/17 16:07) Intake & Output 06,14,22 (08/23/17 16:07) Precautions (Aru) (08/23/17 16:07) Weekly Weight (Lbs) WEEK (08/23/17 16:07) Docusate Sodium Capsule (Colace Capsule) (08/23/17 21:00) Heparin Injection (Heparin Injection) (08/23/17 20:00) Levetiracetam Tablet (Keppra Tablet) (08/23/17 21:00) Methocarbamol Tablet (Robaxin Tablet) (08/23/17 21:00) Ondansetron Oral Dissolve Tab (Zofran (08/23/17 16:15) Oxycodone Immediate Rel Tablet (Oxyir Ta (08/23/17 16:15) Prednisolone 1% Ophthalmic Debbie (Pred For (08/23/17 21:00) Acetaminophen Tablet/Caplet (Tylenol T (08/23/17 16:15) Aspirin Enteric Coated Tablet (Ecotrin T (08/24/17 09:00) Gabapentin Capsule/Tablet (Neurontin Cap (08/23/17 21:00) Lidocaine Patch (Lidoderm 5% Patch) (08/24/17 09:00) Calcium Carbonate Tablet (Calcarb 600 Ta (08/24/17 07:00) Cholecalciferol Capsule/Tablet (Vitamin (08/24/17 09:00) Therapeutic Multivitamin Tab (Vitamins, (08/24/17 07:00) Pharmacy Communication (Pharmacy Communi (08/23/17 16:15) Diclofenac 1% Gel (Voltaren 1% Gel) (08/23/17 16:30) Ambulate TID (08/23/17 17:09) Sequential Compression Device 08,20 (08/23/17 17:09) Dvt/Vte Risk - Notifiy Physici 08 (08/23/17 17:09) Patch Removal (Patch Removal) (08/23/17 21:00) Consult Physician (08/23/17 19:56) Patient May Use Own Med,Single (Patient (08/24/17 09:00) Loteprednol (Non-Formulary) (Lotemax 0.5 (08/24/17 21:00) Patient Visit (08/24/17 ) Speech Sound Lang Comp (08/24/17 ) Follow-Up Appointment (08/24/17 12:37) Patient Visit (08/24/17 ) Pt Eval High Complexity (08/24/17 ) Exercise Therap, Ea 15 Min (08/24/17 ) Cbc With Automated Diff (08/25/17 06:00) Comprehensive Metabolic Panel (08/25/17 06:00) Patient Visit (08/24/17 ) Therapeutic, Group (08/24/17 ) Rehab Nursing Orders: Diseage Management, Hydration Management, Pain Management Other Nursing Orders: Monitor for postop constipation and urinary retention PT IPOC Problem List: Activity Tolerance, Functional Strength, Safety, Balance, Gait, Transfer, Bed Mobility, ROM Treatment Plan: Continue Plan of Care Bed Mobility, Education, Functional Activity Dorothy, Functional Strength, Group Therapy, Gait, Safety, Therapeutic Exercise, Transfers Treatment Duration: Sep 14, 2017 Frequency: At least 5 of 7 days/Wk (IRF) Estimated Hrs Per Day: 1.5 hours per day OT IPOC Problems: Decreased Activ Tolerance, Decreased UE Strength, Dependent Transfers , Impaired Bed Mobility, Impaired Cognition, Impaired Funct Balance, Impaired I ADL's, Impaired Self-Care Skills OT Treatment, Training and Edu: Yes Plan of Care: ADL Retraining, Functional Mobility, Group Exercise/Act as Ind, UE Funct Exercise/Act Treatment Duration: Sep 07, 2017 Frequency: At least 5 of 7 days/Wk (IRF) Estimated Hrs Per Day: 1.[address] IPOC Speech Therapy Treatment Plan: Continue Plan of Care Treatment Duration: Aug 31, 2017 Frequency: 3 times per week Estimated Hrs Per Day: .5 hour per day Environmental Associate/Case Mgmt Environmental Associate/Case Managemen: Discharge Planning, Patient/Family Counseling Physician IPOC Medical Issues being managed closely and that require the 24 hour availability of a physician:Postop headaches and anemia filamentary keratitis of left eye Medical Issues: Bowel/Bladder Function, DVT Prophylaxis, Falls Precautions, Infection Protection, Pain Management, Wound Care, Other (List) (as per above) Brief Synthesis of Preadmission Screen, Post-Admission Evaluation, and Therapy Evaluations: 57 yo female s/p rt temporal craniotomy for resection of meningioma causing diplopia and gait imbalance performed at O[facility] Referred to IRU here for ongoing care and therapies Lives in [place] with spouse Had been Independent HX of PULM embolism and Breast CA as weel as per above Medical Prognosis: Good Anticipated Length of Stay: 3-14-18 Rehab Goals Modified Independent to supervsion for adls and mobility skills [facility] CODE 02.1 Etiologic DX RT Petroclival meningioma Anticipated discharge destinat: Home with spouse and [facility] JANNETH BECKFORD MD Aug 25, 2017 11:43
--- NOTE | 2017-08-25 14:00 | Physical Therapy Daily Note ---
PT Daily Note-Current Subjective Pt is laying in bed eating lunch pre tx and agrees to PT with c/o pain at 6/10 at the same side of her face as the craniotomy, right. Mother present. Pain Numeric Pain Scale: 5-Moderate Pain Location: Right Location Body Site: Face Appearance Pt is laying in bed post tx with nurse call, phone, and tray within reach. Mother present. Mental Status Patient Orientation: Normal For Age Transfers Functional [place] Measure 0=Not Assessed/NA 4=Minimal Assistance 1=Total Assistance 5=Supervision or Setup 2=Maximal Assistance 6=Modified [place] 3=Moderate Assistance 7=Complete IndependenceIRFPAI Quality Coding Scale 6 Independent with activity with or without an assistive device 5 Patient requires set up or clean up by helper. Patient completes activity by themselves 4 Supervision or touching assist (CGA). [place] provide cues , steadying assist 3 The helper provides less than half the effort to complete the activity 2 The helper provides more than half the effort to complete the activity 1 Dependent. The helper does all the effort to complete an activity 7 Patient refused to complete or attempt activity 9 The patient did not perform the activity before the current illness or injury 88 Not attempted due to Medical conditions or safety concerns Transfers (B, C, W/C) (FIM): 5 Supine to/from Sit: 6 Sit to/from Stand: 5 Bed to/from Chair: 5 Mod I with supine to sit at edge of bed. Pt requires SBA for transfers to ensure safety. Gait Training Does the Patient Walk?: Yes Gait (FIM): 5 Distance: 200 feet x1, 150 feet x1 Gait Level of Assist: 5 Gait Persons Needed: 1 Gait Assistive Device: None Pt walks steadily with reciprocal gait pattern and without LOB. Wheelchair Training Does the Pt Use a Wheelchair?: No Exercises Standing: Hip Abduction (20 x1 BLE), Hamstring curls (20 x1 BLE), Heel/toe raises (20 x2 BLE), Marching (10 x2 BLE), Mini squats (20 x1 BLE) Standing hip extension: 20 x1 BLE Treatments Pt performed functional mobility, gait training, standing exercises. Assessment Current Status: Good Progress Pt performed all exercise with excellent activity tolerance. Pt demonstrates motivation as she desires to go home soon. PT Short Term Goals Short Term Goals Time Frame: Aug 31, 2017 Transfers (B,C,W/C) (FIM): 5 Gait (FIM): 5 Gait Distance Comment: 200 feet Gait Level of Assist: 5 Gait Assistive Device: FWW PT Long-Term Goals Long-Term Goals PT Long-Term Goals Time Frame: Sep 14, 2017 Transfers (B,C,W/C) (FIM): 6 Sit to Lying (QC): 6 Lying-Sitting on Side/Bed(QC): 6 Sit to Stand (QC): 6 Rollin Roll Left to Right (QC): 6 Chair/Ynt-nz-Hjfut Xfer(QC): 6 Car Transfer (QC): 6 Does the Patient Walk: Yes Gait (FIM): 6 Distance: 150 feet Walk 10 feet (QC): 6 Walk 10ft-Uneven Surface(QC): 6 Walk 50ft with 2 Turns (QC): 6 Walk 150 ft (QC): 6 Gait Level of Assist: 6 Gait Assistive Device: FWW Does the Pt use WC or Scooter?: No Stairs (FIM): 5 # of Steps: 12 1 Step (curb) (QC): 4 4 Steps (QC): 4 12 Steps (QC): 4 Stairs Level Of Assist: 5 Picking up an Object (QC): 5 PT Plan Problem List Problem List: Activity Tolerance, Functional Strength, Safety, Balance, Gait, Transfer, Bed Mobility, ROM Treatment/Plan Treatment Plan: Continue Plan of Care Treatment Plan: Bed Mobility, Education, Functional Activity Dorothy, Functional Strength, Group Therapy, Gait, Safety, Therapeutic Exercise, Transfers Treatment Duration: Sep 14, 2017 Frequency: At least 5 of 7 days/Wk (IRF) Estimated Hrs Per Day: 1.5 hours per day Patient and/or Family Agrees t: Yes Safety Risks/Education Patient Education: Gait Training, Transfer Techniques, Correct Positioning, Safety Issues Teaching Recipient: Patient Teaching Methods: Demonstration, Discussion Response to Teaching: Reinforcement Needed Time/GCodes Time In: 1300 Time Out: 1330 Total Billed Treatment Time: 30 Total Billed Treatment 1 visit 30 min EX ALEXANDRIA FRANCES PT Aug 25, 2017 14:00
--- NOTE | 2017-08-25 14:28 | Occupational Ther Daily Note ---
OT Current Status-Daily Note Subjective No pain reported. Appearance Pt. in bed. Agrees to work with OT. Mental Status/Objective Patient Orientation: Person, Place, Time, Situation Functional [place] Measure 0=Not Assessed/NA 4=Minimal Assistance 1=Total Assistance 5=Supervision or Setup 2=Maximal Assistance 6=Modified [place] 3=Moderate Assistance 7=Complete [place] ADL-Treatment Functional [place] Measure 0=Not Assessed/NA 4=Minimal Assistance 1=Total Assistance 5=Supervision or Setup 2=Maximal Assistance 6=Modified [place] 3=Moderate Assistance 7=Complete IndependenceIRFPAI Quality Coding Scale 6 Independent with activity with or without an assistive device 5 Patient requires set up or clean up by helper. Patient completes activity by themselves 4 Supervision or touching assist (CGA). [place] provide cues , steadying assist 3 The helper provides less than half the effort to complete the activity 2 The helper provides more than half the effort to complete the activity 1 Dependent. The helper does all the effort to complete an activity 7 Patient refused to complete or attempt activity 9 The patient did not perform the activity before the current illness or injury 88 Not attempted due to Medical conditions or safety concerns Grooming (FIM): 5 (Set up to comb hair and brush teeth.) Oral Hygiene (QC): 5 Bathing (FIM): 5 (SBA to wash all parts in the shower.) Shower/Bathe Self (QC): 4 Upper Body (FIM): 5 Upper Body Dressing (QC): 4 Lower Body Dressing (FIM): 5 Lower Body Dressing (QC): 4 On/Off Footwear (QC): 4 Toileting (FIM): 5 (SBA to toilet self.) Toileting Hygiene (QC): 5 Transfers (B, C, W/C) (FIM): 5 (SBA without equipment to and from therapy gym from room.) Toilet/Commode Transfer (FIM): 5 Toilet Transfer (QC): 5 Shower Transfer(FIM): 5 Other Treatment After showering, pt. agreed to ambulate to therapy gym. Tolerated 15 minutes on armbike at mod resistance to increase overall strength and independence with daily tasks. Pt. tolerated this well with several brief rest breaks. Pt. does verbalize that she gets very tired after showering. After ambulating back to room, pt. all needs met. Pt. tolerated all treatment well. Education OT Patient Education: Correct positioning, Exercise program, Modified ADL techniques, Progress toward Goal/Update tx plan, Purpose of tx/functional activities, Reviewed precautions, Rehab process, Transfer techniques Teaching Recipient: Patient Teaching Methods: Demonstration, Discussion Response to Teaching: Verbalize Understanding, Return Demonstration OT Short Term Goals Short Term Goals Time Frame: Aug 31, 2017 Eating(FIM): 5 Grooming(FIM): 5 Bathing(FIM): 5 Upper Body Dressing(FIM): 5 Lower Body Dressing(FIM): 5 Toileting(FIM): 5 Transfers (B,C,W/C) (FIM): 5 Toilet/Commode Transfer(FIM): 5 Shower Transfer(FIM): 5 Additional Short Term Goals: 1-Demonstrate ADL Tasks, 2-Verbalize Understanding , 3-ImproveStrength/Dorothy 1=Demonstrate adherence to instructed precautions during ADL tasks. 2=Patient will verbalize/demonstrate understanding of assistive devices/ modifications for ADL. 3=Patient will improve strength/tolerance for activity to enable patient to perform ADL's. OT Senior Managing Director Goals Fpc Goals Time Frame: Sep 07, 2017 Eating (FIM): 6 Eating (QC): 6 Groomin Oral Hygiene (QC): 6 Bathing(FIM): 5 Shower/Bathe Self (QC): 5 Upper Body Dressing(FIM): 6 Upper Body Dressing (QC): 6 Lower Body Dressing(FIM): 6 Lower Body Dressing (QC): 6 On/Off Footwear (QC): 6 Toileting(FIM): 6 Toileting Hygiene (QC): 6 Transfers (B,C,W/C) (FIM): 6 Toilet/Commode Transfer(FIM): 6 Toilet/Commode Transfer (QC): 6 Shower Transfer(FIM): 5 Comprehension(FIM): 6 Expression (FIM): 5 Social Interaction(FIM): 6 Problem Solving(FIM): 6 Memory(FIM): 5 1=Demonstrate adherence to instructed precautions during ADL tasks. 2=Patient will verbalize/demonstrate understanding of assistive devices/ modifications for ADL. 3=Patient will improve strength/tolerance for activity to enable patient to perform ADL's. OT Education/Plan Problem List/Assessment Assessment: Decreased Activ Tolerance, Impaired I ADL's, Impaired Self-Care Skills Discharge Recommendations Plan/Recommendations: Continue POC Therapy D/C Recommendations: Home w/ Family Support, Occupational Therapy Home Care Treatment Plan/Plan of Care Treatment,Training & Education: Yes Patient would benefit from OT for education, treatment and training to promote independence in ADL's, mobility, safety and/or upper extremity function for ADL' s. Plan of Care: ADL Retraining, Functional Mobility, Group Exercise/Act as Ind, UE Funct Exercise/Act Treatment Duration: Sep 07, 2017 Frequency: At least 5 of 7 days/Wk (IRF) Estimated Hrs Per Day: 1.5 hours per day Agreement: Yes Rehab Potential: Good Time/GCodes Start Time: 11:00 Stop Time: 12:15 Total Time Billed (hr/min): 75 Billed Treatment Time 1, ADL x 60minutes, Ex x 15minutes TAHIR MARTINEZ OT Aug 25, 2017 14:28
[2017-08-25 18:00] VITALS: BP 101/65
[2017-08-25] MEDS: LIDODERM PATCH REMOVAL TP SCH (21:11)
[2017-08-25] MEDS: GABAPENTIN 600 MG (NEURONTIN) TAB PO SCH (21:11)
[2017-08-25] MEDS: LOTEPREDNOL OPTH OU SCH (21:13)
[2017-08-26 05:17] VITALS: BP 135/75
[2017-08-26] MEDS: CALCIUM CARBONATE 600 MG (CALCARB) TAB PO SCH (06:05)
[2017-08-26] MEDS: MULTIVIT W/MINERALS TAB (THERAGRAN M) PO SCH (06:05)
--- NOTE | 2017-08-26 07:40 | Progress Note (SOAP) ---
Subjective Time Seen by Provider: 07:40 Subjective/Events-last exam Patient improving and feeling better. Patient does have pain with had surgery. Patient does not want to get addicted. 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 History of breast cancer. Stem cell transplant. To find out path report from [facility]. . Brain tumor meningioma. History of breast cancer. Stem cell transplant. Patient had some pain in the right side of face. To monitor. . 08/26/17. Brain tumor meningioma. Patient happy today Breast cancer history stem cell transplant history Clinical Quality Measures DVT/VTE Risk/Contraindication: Risk Factor Score Per Nursin RFS Level Per Nursing on Admit: 4+=Very High JANIE MATHIS DO Aug 26, 2017 07:40
[2017-08-26] MEDS: DOCUSATE SODIUM 100 MG (COLACE) CAP PO SCH ×2 (07:41→20:40)
[2017-08-26] MEDS: LIDOCAINE (LIDODERM) 5% PATCH TOP SCH (08:36)
[2017-08-26] MEDS: ASPIRIN E.C. 81 MG (ECOTRIN) TAB PO SCH (08:36)
[2017-08-26] MEDS: VITAMIN D3 1,000 UNITS (CHOLECALCIFEROL) TABLET PO SCH (08:36)
[2017-08-26] MEDS: METHOCARBAMOL 500 MG (ROBAXIN) TABLET PO SCH ×2 (08:36→20:40)
[2017-08-26] MEDS: LEVETIRACETAM 500 MG (KEPPRA) TAB PO SCH ×2 (08:36→20:40)
[2017-08-26] MEDS: prednisoLONE 1% OPTH (PRED FORTE) 5 ML BTL OU SCH ×2 (08:38→20:42)
--- NOTE | 2017-08-26 10:00 | Physical Therapy Daily Note ---
PT Daily Note-Current Subjective Pt is laying in bed pre tx with no complaint of pain and agrees to PT. Pain Numeric Pain Scale: 0-No Pain Location: No Pain Reported Appearance Pt is sitting at edge of bed post tx ordering a drink with nurse call, phone, and tray within reach. Mental Status Patient Orientation: Normal For Age Transfers Functional [place] Measure 0=Not Assessed/NA 4=Minimal Assistance 1=Total Assistance 5=Supervision or Setup 2=Maximal Assistance 6=Modified [place] 3=Moderate Assistance 7=Complete IndependenceIRFPAI Quality Coding Scale 6 Independent with activity with or without an assistive device 5 Patient requires set up or clean up by helper. Patient completes activity by themselves 4 Supervision or touching assist (CGA). [place] provide cues , steadying assist 3 The helper provides less than half the effort to complete the activity 2 The helper provides more than half the effort to complete the activity 1 Dependent. The helper does all the effort to complete an activity 7 Patient refused to complete or attempt activity 9 The patient did not perform the activity before the current illness or injury 88 Not attempted due to Medical conditions or safety concerns Transfers (B, C, W/C) (FIM): 5 Scootin Rollin Supine to/from Sit: 6 Sit to/from Stand: 5 Bed to/from Chair: 5 SBA required for transfers and mod I for bed mobility. Gait Training Does the Patient Walk?: Yes Gait (FIM): 5 Distance: 1500 feet x1, 100 feet x1 Gait Level of Assist: 5 Gait Persons Needed: 1 Gait Assistive Device: None Gait is strep-through reciprocal gait pattern. Pt is steady and safe. Wheelchair Training Does the Pt Use a Wheelchair?: No Stair Training Stair Training: Handrails/: 1 handrail Stairs (FIM): 5 #of Steps: 12 Stairs: Pattern: Reciprocal Level of Assist: 5 Exercises Supine Ex: Bridging (10 x1 ), Straight leg raise (15 x1 BLE) Standing: Hip Abduction (20 x1 BLE), Hamstring curls (15 x1 BLE), Heel/toe raises (15 x2 BLE), Marching, Mini squats (20 x2) Side-lying: ER 15 x1 BLE, Hip abduction 15 x1 BLE Treatments Pt performed gait training, bed mobility, LE exercises in different positions. Assessment Current Status: Good Progress Pt is steady and safe with walking 1500 feet inside and outside, up and down a ramp, and a flight of stairs. Pt requires SBA for safety during gait and stair training. Pt demonstrates good activity tolerance as she is able to perform exercises in different positions with little rest breaks. PT Short Term Goals Short Term Goals Time Frame: Aug 31, 2017 Transfers (B,C,W/C) (FIM): 5 Gait (FIM): 5 Gait Distance Comment: 200 feet Gait Level of Assist: 5 Gait Assistive Device: FWW PT Fpc Goals Consumer Affairs Director Goals PT Fpc Goals Time Frame: Sep 14, 2017 Transfers (B,C,W/C) (FIM): 6 Sit to Lying (QC): 6 Lying-Sitting on Side/Bed(QC): 6 Sit to Stand (QC): 6 Rollin Roll Left to Right (QC): 6 Chair/Uyr-xs-Ublxk Xfer(QC): 6 Car Transfer (QC): 6 Does the Patient Walk: Yes Gait (FIM): 6 Distance: 150 feet Walk 10 feet (QC): 6 Walk 10ft-Uneven Surface(QC): 6 Walk 50ft with 2 Turns (QC): 6 Walk 150 ft (QC): 6 Gait Level of Assist: 6 Gait Assistive Device: FWW Does the Pt use WC or Scooter?: No Stairs (FIM): 5 # of Steps: 12 1 Step (curb) (QC): 4 4 Steps (QC): 4 12 Steps (QC): 4 Stairs Level Of Assist: 5 Picking up an Object (QC): 5 PT Plan Problem List Problem List: Activity Tolerance, Functional Strength, Safety, Balance, Gait, Transfer, Bed Mobility, ROM Treatment/Plan Treatment Plan: Continue Plan of Care Treatment Plan: Bed Mobility, Education, Functional Activity Dorothy, Functional Strength, Group Therapy, Gait, Safety, Therapeutic Exercise, Transfers Treatment Duration: Sep 14, 2017 Frequency: At least 5 of 7 days/Wk (IRF) Estimated Hrs Per Day: 1.5 hours per day Patient and/or Family Agrees t: Yes Safety Risks/Education Patient Education: Gait Training, Transfer Techniques, Steps, Correct Positioning, Safety Issues Teaching Recipient: Patient Teaching Methods: Demonstration, Discussion Response to Teaching: Reinforcement Needed Time/GCodes Time In: 900 Time Out: 1000 Total Billed Treatment Time: 60 Total Billed Treatment 1 visit 25 min GT 35 min EX AKILAH BRYAN PT Aug 26, 2017 10:00
--- NOTE | 2017-08-26 10:15 | PM & R (SOAP) Progress Note ---
Subjective Time Seen by Provider: 09:00 Subjective/Events-last exam Patient was seen in GYM doing Lower limb exercises on mat.Strength and endurance improving.Patient SBA for transfers Objective Exam Last Set of Vital Signs Vital Signs Date Time Temp Pulse Resp B/P (MAP) Pulse Ox O2 Delivery O2 Flow Rate FiO2 08/26/17 09:00 Room Air 08/26/17 05:17 98.2 86 20 135/75 (95) 97 Capillary Refill : I&O Intake and Output 08/26/17 00:00 Intake Total 1820 ml Output Total 600 ml Balance 1220 ml Intake Oral 1820 ml Output Urine Total 600 ml # Voids 4 General: Alert, Oriented X3, Cooperative, No Acute Distress, Other (crani site healing well) HEENT: Atraumatic, PERRLA, EOMI, Mucous Memb Moist/[place], Other (as per above) Neck: Supple, No JVD Lungs: Clear to Auscultation Heart: Regular Rate Abdomen: Normal Bowel Sounds, Soft Extremities: No Edema Skin: Other (crani site healing well) Neuro: Sensation Intact, Other (Mild STM loss Strength 3+/5 BUES 4+/5 BLES) Results Lab Laboratory Tests 08/25/17 05:30: White Blood Count 10.2, Red Blood Count 3.46L, Hemoglobin 10.3L, Hematocrit 31L , Mean Corpuscular Volume 91, Mean Corpuscular Hemoglobin 30, Mean Corpuscular Hemoglobin Concent 33, Red Cell Distribution Width 14.7H, Platelet Count 406H, Mean Platelet Volume 10.2, Neutrophils (%) (Auto) 51, Lymphocytes (%) (Auto) 35 , Monocytes (%) (Auto) 10, Eosinophils (%) (Auto) 4, Basophils (%) (Auto) 1, Neutrophils # (Auto) 5.2, Lymphocytes # (Auto) 3.5, Monocytes # (Auto) 1.0, Eosinophils # (Auto) 0.4H, Basophils # (Auto) 0.1, Sodium Level 140, Potassium Level 4.1, Chloride Level 103, Carbon Dioxide Level 22, Anion Gap 15H, Blood Urea Nitrogen 12, Creatinine 0.78, Estimat Glomerular Filtration Rate > 60, BUN/ Creatinine Ratio 15, Glucose Level 94, Calcium Level 9.4, Total Bilirubin 0.4, Aspartate Amino Transf (AST/SGOT) 24, Alanine Aminotransferase (ALT/SGPT) 64H, Alkaline Phosphatase 122, Total Protein 6.5, Albumin 3.6 Assessment/Plan Assessment S/P Crani and excision rt temtpral Meningioma Post op Headaches Post op anemia Post op seizure prophylaxis on Keppra Post op DVT Prophylaxis on Heparin SQ HX of Breast CA Plan Continue PT/OT/ST Team Conference held 08-24-17-See report for full functional update and POC and ELOS Patient has f/u with Physician at [facility] next week Do otoscopic exam if ant further complaints re above otic pain none noted JANNETH BECKFORD MD Aug 26, 2017 10:14
--- NOTE | 2017-08-26 12:45 | Occupational Ther Daily Note ---
OT Current Status-Daily Note Subjective Pt sitting EOB, agrees to treatment. Mental Status/Objective Functional [place] Measure 0=Not Assessed/NA 4=Minimal Assistance 1=Total Assistance 5=Supervision or Setup 2=Maximal Assistance 6=Modified [place] 3=Moderate Assistance 7=Complete [place] ADL-Treatment Pt requests shower this morning. Sit to stand with supervision. Retrieved clothing from closet with SBA. Gait to restroom without LOB. Transfer to toilet with supervision. Pt able to complete toileting hygiene and clothing management with SBA. Transfer to walk in shower with SBA. Pt able to wash/dry all areas with SBA and increased time. Don pullover shirt with set up. Pt donned pants with SBA for balance during pant hike. Dons socks with SBA. Pt stood at sink to comb hair and brush teeth with SBA. Pt opened soda can and poured into cup without assistance. Pt ate piece of cake with modified independence. Functional [place] Measure 0=Not Assessed/NA 4=Minimal Assistance 1=Total Assistance 5=Supervision or Setup 2=Maximal Assistance 6=Modified [place] 3=Moderate Assistance 7=Complete IndependenceIRFPAI Quality Coding Scale 6 Independent with activity with or without an assistive device 5 Patient requires set up or clean up by helper. Patient completes activity by themselves 4 Supervision or touching assist (CGA). [place] provide cues , steadying assist 3 The helper provides less than half the effort to complete the activity 2 The helper provides more than half the effort to complete the activity 1 Dependent. The helper does all the effort to complete an activity 7 Patient refused to complete or attempt activity 9 The patient did not perform the activity before the current illness or injury 88 Not attempted due to Medical conditions or safety concerns Eating (FIM): 6 Eating (QC): 6 Grooming (FIM): 5 Bathing (FIM): 5 Shower/Bathe Self (QC): 4 Upper Body (FIM): 5 Upper Body Dressing (QC): 4 Lower Body Dressing (FIM): 5 Lower Body Dressing (QC): 4 Toileting (FIM): 5 Toileting Hygiene (QC): 4 Toilet/Commode Transfer (FIM): 5 Toilet Transfer (QC): 4 Shower Transfer(FIM): 5 Other Treatment Pt performed gait to gym without AD, no LOB noted. Arm bike x10 minutes to increase overall strength and activity tolerance needed for ADLs and transfers. Pt completed task with moderate resistance and slow pace. No rest breaks needed. Pt returned to room, in bed with needs met after session. OT Short Term Goals Short Term Goals Time Frame: Aug 31, 2017 Eating(FIM): 5 Grooming(FIM): 5 Bathing(FIM): 5 Upper Body Dressing(FIM): 5 Lower Body Dressing(FIM): 5 Toileting(FIM): 5 Transfers (B,C,W/C) (FIM): 5 Toilet/Commode Transfer(FIM): 5 Shower Transfer(FIM): 5 Additional Short Term Goals: 1-Demonstrate ADL Tasks, 2-Verbalize Understanding , 3-ImproveStrength/Dorothy 1=Demonstrate adherence to instructed precautions during ADL tasks. 2=Patient will verbalize/demonstrate understanding of assistive devices/ modifications for ADL. 3=Patient will improve strength/tolerance for activity to enable patient to perform ADL's. OT Senior Care Goals Senior Care Goals Time Frame: Sep 07, 2017 Eating (FIM): 6 Eating (QC): 6 Groomin Oral Hygiene (QC): 6 Bathing(FIM): 5 Shower/Bathe Self (QC): 5 Upper Body Dressing(FIM): 6 Upper Body Dressing (QC): 6 Lower Body Dressing(FIM): 6 Lower Body Dressing (QC): 6 On/Off Footwear (QC): 6 Toileting(FIM): 6 Toileting Hygiene (QC): 6 Transfers (B,C,W/C) (FIM): 6 Toilet/Commode Transfer(FIM): 6 Toilet/Commode Transfer (QC): 6 Shower Transfer(FIM): 5 Comprehension(FIM): 6 Expression (FIM): 5 Social Interaction(FIM): 6 Problem Solving(FIM): 6 Memory(FIM): 5 1=Demonstrate adherence to instructed precautions during ADL tasks. 2=Patient will verbalize/demonstrate understanding of assistive devices/ modifications for ADL. 3=Patient will improve strength/tolerance for activity to enable patient to perform ADL's. OT Education/Plan Discharge Recommendations Plan/Recommendations: Continue POC Treatment Plan/Plan of Care Patient would benefit from OT for education, treatment and training to promote independence in ADL's, mobility, safety and/or upper extremity function for ADL' s. Plan of Care: ADL Retraining, Functional Mobility, Group Exercise/Act as Ind, UE Funct Exercise/Act Treatment Duration: Sep 07, 2017 Frequency: At least 5 of 7 days/Wk (IRF) Estimated Hrs Per Day: 1.5 hours per day Agreement: Yes Rehab Potential: Good Time/GCodes Start Time: 10:00 Stop Time: 11:00 Total Time Billed (hr/min): 60 Billed Treatment Time 1 visit, ADLx3(45minutes), EX(15minutes) VETO VALDEZ OT Aug 26, 2017 12:45
--- NOTE | 2017-08-26 13:17 | Speech Therapy Daily Note ---
Speech Daily Progress Note Subjective Date Seen by Provider: Aug 26, 2017 Time Seen by Provider: 08:30 The patient was seated upright in bed upon entrance. The patient greeted the clinician appropriately and was agreeable to participation in the cognitive treatment session. Objective Functional (short-term) Recall: The patient was asked to recall tasks, therapies , names, and activities from the prior day and evening. The patient displayed high accuracy, easily stating activities and recalling names from the previous day. Additionally, the patient carried conversations with the clinician regarding previous discussions re: clinician's family, patient's family, and hometown. The patient is demonstrating high accuracy with memory tasks, as well as, sequencing and following directions. While the patient does intermittently repeat herself, she states this is something she has always done ("I just like to talk.") Assessment Assessment Current Status: Excellent Progress Treatment Plan Continue Plan of Care Communication Comprehension: 6 Expression: 5 Social Cognition Social Interaction: 6 Problem Solvin Memory: 5 Speech Short Term Goals Short Term Goals Short Term Goals 1. The patient will recall three functional memory strategies for use at home with 90% accuracy, independently. 2. The patient will recall three items immediately and following a five minute delay with 80% accuracy and mild clinician verbal prompting. Time Frame-STG: Three Days Speech Air Conditioning Unit Tester Goals Half-Way Goals 1. The patient will demonstrate improved cognitive skill, most notably, short- term memory for recall of ADL information for increased safety and function in the least restrictive setting. Time Frame: One Week Comprehension: 6 Expression: 5 Social Interaction: 6 Problem Solvin Memory: 5 Speech-Plan Treatment Plan Speech Therapy Treatment Plan: Discontinue ST, Goals Met The patient has met all goals placed by speech pathology. Skilled speech pathology is not warranted at this time. Treatment Duration: Aug 31, 2017 Frequency: 3 times per week Estimated Hrs Per Day: .5 hour per day Rehab Potential: Good Safety Risks/Education Teaching Recipient: Patient Teaching Methods: Discussion Response to Teaching: Verbalize Understanding Education Topics Provided: Results, Recommendations, Plan of Care Time Speech Therapy Time In: 08:30 Speech Therapy Time Out: 09:00 Total Billed Time: 30 Billed Treatment Time 1, HELDER ASHER Aug 26, 2017 13:17
--- NOTE | 2017-08-26 13:23 | Therapy Team Discharge Summary ---
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 Upon admission, the patient demonstrated a slight deficit in her short term memory. Skilled speech pathology focused on memory strategies and functional recall of events (short-term). The patient demonstrated excellent improvement and accuracy throughout tasks. At this time, the patient is discharged from skilled speech pathology treatment. No additional services are warranted. PT Chcf Goals Surveyor Hydrographic Goals PT Surveyor Hydrographic Goals Time Frame: Sep 14, 2017 Transfers (B,C,W/C) (FIM): 6 Roll Left to Right (QC): 6 Sit to Lying (QC): 6 Lying-Sitting on Side/Bed(QC): 6 Sit to Stand (QC): 6 Chair/Txf-np-Acrlc Xfer(QC): 6 Car Transfer (QC): 6 Does the Patient Walk: Yes Gait (FIM): 6 Distance: 150 feet Walk 10 feet (QC): 6 Walk 10ft-Uneven Surface(QC): 6 Walk 50ft with 2 Turns (QC): 6 Walk 150 ft (QC): 6 Gait Level of Assist: 6 Gait Assistive Device: FWW Does the Pt use WC or Scooter?: No Stairs (FIM): 5 # of Steps: 12 1 Step (curb) (QC): 4 4 Steps (QC): 4 12 Steps (QC): 4 Stairs Level Of Assist: 5 Picking up an Object (QC): 5 OT Surveyor Hydrographic Goals Chcf Goals Time Frame: Sep 07, 2017 Eating (FIM): 6 Eating (QC): 6 Oral Hygiene (QC): 6 Grooming(FIM): 6 Bathing(FIM): 5 Shower/Bathe Self (QC): 5 Upper Body Dressing(FIM): 6 Upper Body Dressing (QC): 6 Lower Body Dressing(FIM): 6 Lower Body Dressing (QC): 6 On/Off Footwear (QC): 6 Toileting(FIM): 6 Toileting Hygiene (QC): 6 Transfers (B,C,W/C) (FIM): 6 Toilet/Commode Transfer(FIM): 6 Toilet/Commode Transfer (QC): 6 Shower Transfer(FIM): 5 Comprehension(FIM): 6 Expression (FIM): 5 Social Interaction(FIM): 6 Problem Solving(FIM): 6 Memory(FIM): 5 1=Demonstrate adherence to instructed precautions during ADL tasks. 2=Patient will verbalize/demonstrate understanding of assistive devices/ modifications for ADL. 3=Patient will improve strength/tolerance for activity to enable patient to perform ADL's. Speech Chcf Goals Surveyor Hydrographic Goals 1. The patient will demonstrate improved cognitive skill, most notably, short- term memory for recall of ADL information for increased safety and function in the least restrictive setting. Time Frame: One Week Comprehension: 6 (MET) Expression: 5 (MET) Social Interaction: 6 (MT) Problem Solvin (MET) Memory: 5 (MET) HELDER AGUIRRE Aug 26, 2017 13:23
--- NOTE | 2017-08-26 15:12 | Therapy Group Daily Note ---
Therapy Daily Group Note Patient Education Topic Other List Below (memory strategies) Exercises LE Seated Exercise, UE Exercise Other/Notes Pt. attended group PT OT session this date. Pt. ambulated to from with escort only. Pt. was friendly and participated well introducing self and enjoyed jokes told by others. Pts. enjoyed a display of "punny toys" (wooden toys with funny pun meanings). Pts. each identified various object apraxia situations via a photo image they were shown. Importance of memory and ways to facilitate lasting memory were shared. Pts. all participated in image matching memory game. Pt. escorted back to room after group. Start Time: 13:00 Stop Time: 14:30 Total Billed Treatment Time: 90 Total Billed Treatment 1,GRP RENEE SALINAS TRAIL MAINTENANCE WORKER Aug 26, 2017 15:12
[2017-08-26 17:46] VITALS: BP 124/79
[2017-08-26] MEDS: GABAPENTIN 600 MG (NEURONTIN) TAB PO SCH (20:40)
[2017-08-26] MEDS: LOTEPREDNOL OPTH OU SCH (20:41)
[2017-08-26] MEDS: LIDODERM PATCH REMOVAL TP SCH (20:42)
[2017-08-27] MEDS: MULTIVIT W/MINERALS TAB (THERAGRAN M) PO SCH (05:46)
[2017-08-27] MEDS: CALCIUM CARBONATE 600 MG (CALCARB) TAB PO SCH (05:46)
[2017-08-27 06:03] VITALS: BP 109/69
--- NOTE | 2017-08-27 06:43 | Occupational Ther Daily Note ---
OT Current Status-Daily Note Subjective Pt resting in bed watching tv. Pt agreed to therapy. No c/o pain at this time. Mental Status/Objective Patient Orientation: Person, Place, Time, Situation Functional [place] Measure 0=Not Assessed/NA 4=Minimal Assistance 1=Total Assistance 5=Supervision or Setup 2=Maximal Assistance 6=Modified [place] 3=Moderate Assistance 7=Complete [place] ADL-Treatment Functional [place] Measure 0=Not Assessed/NA 4=Minimal Assistance 1=Total Assistance 5=Supervision or Setup 2=Maximal Assistance 6=Modified [place] 3=Moderate Assistance 7=Complete IndependenceIRFPAI Quality Coding Scale 6 Independent with activity with or without an assistive device 5 Patient requires set up or clean up by helper. Patient completes activity by themselves 4 Supervision or touching assist (CGA). [place] provide cues , steadying assist 3 The helper provides less than half the effort to complete the activity 2 The helper provides more than half the effort to complete the activity 1 Dependent. The helper does all the effort to complete an activity 7 Patient refused to complete or attempt activity 9 The patient did not perform the activity before the current illness or injury 88 Not attempted due to Medical conditions or safety concerns Eating (FIM): 6 (Pt opens packages/containers by self. Uses regular utensils to feed self and cut food.) Eating (QC): 6 Grooming (FIM): 5 (Standing at sink with supervision for safety. Pt is able to complete own grooming.) Oral Hygiene (QC): 5 Bathing (FIM): 5 (Using shower bench, grabbars and hand held shower pt is able to complete with supervision for safety.) Bathing Location: L Arm, R Arm, L Upper Leg, R Upper Leg, L Lower Leg ( including foot), R Lower Leg (including foot), Chest, Abdomen, Buttocks, Perineal Area Shower/Bathe Self (QC): 4 Upper Body (FIM): 5 (Supervision while retrieving clothing then pt is able to complete upper body dressing by self.) Upper Body Dressing (QC): 5 Lower Body Dressing (FIM): 5 (Supervision while retrieving clothing then is able to complete lower body dressing by self.) Lower Body Dressing (QC): 4 On/Off Footwear (QC): 5 Shower Transfer(FIM): 5 (Supervision using grabbar and shower bench.) Pt took increase time to complete tasks due to sleepiness. Pt was able to ambulate around room without walker though if needed found hand holds to stay safe. No LOB noted. After therapy, pt lying in bed with call light/phone in reach. All needs met in room. OT Short Term Goals Short Term Goals Time Frame: Aug 31, 2017 Eating(FIM): 5 Grooming(FIM): 5 Bathing(FIM): 5 Upper Body Dressing(FIM): 5 Lower Body Dressing(FIM): 5 Toileting(FIM): 5 Transfers (B,C,W/C) (FIM): 5 Toilet/Commode Transfer(FIM): 5 Shower Transfer(FIM): 5 Additional Short Term Goals: 1-Demonstrate ADL Tasks, 2-Verbalize Understanding , 3-ImproveStrength/Dorothy 1=Demonstrate adherence to instructed precautions during ADL tasks. 2=Patient will verbalize/demonstrate understanding of assistive devices/ modifications for ADL. 3=Patient will improve strength/tolerance for activity to enable patient to perform ADL's. OT Senior Living Goals Senior Living Goals Time Frame: Sep 07, 2017 Eating (FIM): 6 Eating (QC): 6 Groomin Oral Hygiene (QC): 6 Bathing(FIM): 5 Shower/Bathe Self (QC): 5 Upper Body Dressing(FIM): 6 Upper Body Dressing (QC): 6 Lower Body Dressing(FIM): 6 Lower Body Dressing (QC): 6 On/Off Footwear (QC): 6 Toileting(FIM): 6 Toileting Hygiene (QC): 6 Transfers (B,C,W/C) (FIM): 6 Toilet/Commode Transfer(FIM): 6 Toilet/Commode Transfer (QC): 6 Shower Transfer(FIM): 5 Comprehension(FIM): 6 (MET) Expression (FIM): 5 (MET) Social Interaction(FIM): 6 (MT) Problem Solving(FIM): 6 (MET) Memory(FIM): 5 (MET) 1=Demonstrate adherence to instructed precautions during ADL tasks. 2=Patient will verbalize/demonstrate understanding of assistive devices/ modifications for ADL. 3=Patient will improve strength/tolerance for activity to enable patient to perform ADL's. OT Education/Plan Discharge Recommendations Plan/Recommendations: Continue POC Treatment Plan/Plan of Care Patient would benefit from OT for education, treatment and training to promote independence in ADL's, mobility, safety and/or upper extremity function for ADL' s. Plan of Care: ADL Retraining, Functional Mobility, Group Exercise/Act as Ind, UE Funct Exercise/Act Treatment Duration: Sep 07, 2017 Frequency: At least 5 of 7 days/Wk (IRF) Estimated Hrs Per Day: 1.5 hours per day Agreement: Yes Rehab Potential: Good Time/GCodes Start Time: 07:00 Stop Time: 08:30 Total Time Billed (hr/min): 90 Billed Treatment Time 1 visit-ADL 6 (90 min) ALEXANDRIA RINALDI Aug 27, 2017 06:43
[2017-08-27] MEDS: LEVETIRACETAM 500 MG (KEPPRA) TAB PO SCH ×2 (09:05→22:27)
[2017-08-27] MEDS: DOCUSATE SODIUM 100 MG (COLACE) CAP PO SCH ×2 (09:05→20:30)
[2017-08-27] MEDS: VITAMIN D3 1,000 UNITS (CHOLECALCIFEROL) TABLET PO SCH (09:05)
[2017-08-27] MEDS: LIDOCAINE (LIDODERM) 5% PATCH TOP SCH (09:05)
[2017-08-27] MEDS: METHOCARBAMOL 500 MG (ROBAXIN) TABLET PO SCH ×2 (09:05→22:28)
[2017-08-27] MEDS: ASPIRIN E.C. 81 MG (ECOTRIN) TAB PO SCH (09:05)
[2017-08-27] MEDS: prednisoLONE 1% OPTH (PRED FORTE) 5 ML BTL OU SCH ×2 (09:06→22:40)
--- NOTE | 2017-08-27 09:55 | Physical Therapy Daily Note ---
PT Daily Note-Current Subjective Pt. very talkative, like to share her life stories etc. ?Very anxious to go home and wants to go soon. Pain Numeric Pain Scale: 0-No Pain Mental Status Patient Orientation: Normal For Age Transfers Functional [place] Measure 0=Not Assessed/NA 4=Minimal Assistance 1=Total Assistance 5=Supervision or Setup 2=Maximal Assistance 6=Modified [place] 3=Moderate Assistance 7=Complete IndependenceIRFPAI Quality Coding Scale 6 Independent with activity with or without an assistive device 5 Patient requires set up or clean up by helper. Patient completes activity by themselves 4 Supervision or touching assist (CGA). [place] provide cues , steadying assist 3 The helper provides less than half the effort to complete the activity 2 The helper provides more than half the effort to complete the activity 1 Dependent. The helper does all the effort to complete an activity 7 Patient refused to complete or attempt activity 9 The patient did not perform the activity before the current illness or injury 88 Not attempted due to Medical conditions or safety concerns Transfers (B, C, W/C) (FIM): 7 Scootin Rollin Supine to/from Sit: 7 Sit to/from Stand: 7 Bed to/from Chair: 7 Gait Training Does the Patient Walk?: Yes Gait (FIM): 6 Distance (FIM): 3=150 ft ([id number]) Gait Level of Assist: 6 Gait Persons Needed: 0 Gait Assistive Device: None Balance Picking up an Object (QC): 7 Special Test Comments ROPER completed at 56/56 Exercises Supine Ex: Bridging, Ankle pumps, Quad Set, Rolling, Glut sets, Heel Slides, Short Arc Quads, Scooting, Straight leg raise, Hip abd/add Supine Reps: 20 NuStep Minutes: 20 NuStep Workload: 6 Assessment Current Status: Excellent Progress excellent progress, wants to DC PT Short Term Goals Short Term Goals Time Frame: Aug 31, 2017 Transfers (B,C,W/C) (FIM): 5 Gait (FIM): 5 Gait Distance Comment: 200 feet Gait Level of Assist: 5 Gait Assistive Device: FWW PT Doctor Of Medicine Goals Doctor Of Medicine Goals PT Doctor Of Medicine Goals Time Frame: Sep 14, 2017 Transfers (B,C,W/C) (FIM): 6 Sit to Lying (QC): 6 Lying-Sitting on Side/Bed(QC): 6 Sit to Stand (QC): 6 Rollin Roll Left to Right (QC): 6 Chair/Zxr-nv-Ssxyo Xfer(QC): 6 Car Transfer (QC): 6 Does the Patient Walk: Yes Gait (FIM): 6 Distance: 150 feet Walk 10 feet (QC): 6 Walk 10ft-Uneven Surface(QC): 6 Walk 50ft with 2 Turns (QC): 6 Walk 150 ft (QC): 6 Gait Level of Assist: 6 Gait Assistive Device: FWW Does the Pt use WC or Scooter?: No Stairs (FIM): 5 # of Steps: 12 1 Step (curb) (QC): 4 4 Steps (QC): 4 12 Steps (QC): 4 Stairs Level Of Assist: 5 Picking up an Object (QC): 5 PT Plan Treatment/Plan Treatment Plan: Continue Plan of Care Treatment Plan: Bed Mobility, Education, Functional Activity Dorothy, Functional Strength, Group Therapy, Gait, Safety, Therapeutic Exercise, Transfers Treatment Duration: Sep 14, 2017 Frequency: At least 5 of 7 days/Wk (IRF) Estimated Hrs Per Day: 1.5 hours per day Patient and/or Family Agrees t: Yes Safety Risks/Education Patient Education: Gait Training, Transfer Techniques, Correct Positioning, Safety Issues Teaching Recipient: Patient Teaching Methods: Demonstration, Discussion Response to Teaching: Verbalize Understanding, Return Demonstration Time/GCodes Time In: 835 Time Out: 955 Total Billed Treatment Time: 90 Total Billed Treatment 1,NM25m,GT20m,EX45m G Codes Necessary: RENEE Rogers PTA Aug 27, 2017 09:55
[2017-08-27 19:24] VITALS: BP 110/70
[2017-08-27] MEDS: LIDODERM PATCH REMOVAL TP SCH (22:15)
[2017-08-27] MEDS: GABAPENTIN 600 MG (NEURONTIN) TAB PO SCH (22:27)
[2017-08-27] MEDS: LOTEPREDNOL OPTH OU SCH (22:30)
[2017-08-28 04:02] VITALS: BP 119/64
[2017-08-28] MEDS: CALCIUM CARBONATE 600 MG (CALCARB) TAB PO SCH (06:28)
[2017-08-28] MEDS: MULTIVIT W/MINERALS TAB (THERAGRAN M) PO SCH (06:28)
[2017-08-28] MEDS: LEVETIRACETAM 500 MG (KEPPRA) TAB PO SCH ×2 (08:15→21:02)
[2017-08-28] MEDS: METHOCARBAMOL 500 MG (ROBAXIN) TABLET PO SCH ×2 (08:15→21:02)
[2017-08-28] MEDS: DOCUSATE SODIUM 100 MG (COLACE) CAP PO SCH ×2 (08:15→21:02)
[2017-08-28] MEDS: prednisoLONE 1% OPTH (PRED FORTE) 5 ML BTL OU SCH ×2 (08:16→21:04)
[2017-08-28] MEDS: LIDOCAINE (LIDODERM) 5% PATCH TOP SCH (08:16)
[2017-08-28] MEDS: ASPIRIN E.C. 81 MG (ECOTRIN) TAB PO SCH (08:16)
[2017-08-28] MEDS: VITAMIN D3 1,000 UNITS (CHOLECALCIFEROL) TABLET PO SCH (08:16)
[2017-08-28] MEDS: fluCOnazole (DIFLUCAN) 100 MG TAB PO SCH (14:18)
[2017-08-28 18:36] VITALS: BP 120/67
[2017-08-28] MEDS ORDERED: MILK OF MAGNESIA 400 MG/5 ML 30 ML UDC PO PRN (19:15)
[2017-08-28] MEDS: GABAPENTIN 600 MG (NEURONTIN) TAB PO SCH (21:02)
[2017-08-28] MEDS: LOTEPREDNOL OPTH OU SCH (21:04)
[2017-08-28] MEDS: LIDODERM PATCH REMOVAL TP SCH (21:10)
[2017-08-29 05:29] VITALS: BP 125/78
[2017-08-29] MEDS: CALCIUM CARBONATE 600 MG (CALCARB) TAB PO SCH (06:08)
[2017-08-29] MEDS: MULTIVIT W/MINERALS TAB (THERAGRAN M) PO SCH (06:08)
--- NOTE | 2017-08-29 08:49 | Progress Note (SOAP) ---
Subjective Time Seen by Provider: 08:49 Subjective/Events-last exam Patient had constipation which has been corrected. Patient complaining of pain in the rectum to be evaluated Objective Exam Vital Signs Date Time Temp Pulse Resp B/P (MAP) Pulse Ox O2 Delivery O2 Flow Rate FiO2 08/29/17 05:29 98.9 112 18 125/78 (94) 98 Room Air 08/28/17 20:20 Room Air 08/28/17 18:36 98.7 86 18 120/67 (84) 98 Room Air 08/28/17 09:00 Room Air I & O 08/29/17 07:00 Intake Total 2090 ml Balance 2090 ml Capillary Refill : General Appearance: No Apparent Distress, WD/WN Assessment/Plan Assessment/Plan Assess & Plan/Chief Complaint Brain mass. History of breast cancer. Stem cell transplant. To find out path report from [facility]. . Brain tumor meningioma. History of breast cancer. Stem cell transplant. Patient had some pain in the right side of face. To monitor. . 08/26/17. Brain tumor meningioma. Patient happy today Breast cancer history stem cell transplant history. . 08/29/17. Brain tumor meningioma. Breast cancer history. Stem cell transplant history. Patient has been constipated. Patient doing okay today except having pain in the rectum Clinical Quality Measures DVT/VTE Risk/Contraindication: Risk Factor Score Per Nursin RFS Level Per Nursing on Admit: 4+=Very High JANIE MATHIS DO Aug 29, 2017 08:49
[2017-08-29] MEDS: ASPIRIN E.C. 81 MG (ECOTRIN) TAB PO SCH (09:02)
[2017-08-29] MEDS: METHOCARBAMOL 500 MG (ROBAXIN) TABLET PO SCH ×2 (09:02→20:17)
[2017-08-29] MEDS: LEVETIRACETAM 500 MG (KEPPRA) TAB PO SCH ×2 (09:02→20:16)
[2017-08-29] MEDS: VITAMIN D3 1,000 UNITS (CHOLECALCIFEROL) TABLET PO SCH (09:02)
[2017-08-29] MEDS: fluCOnazole (DIFLUCAN) 100 MG TAB PO SCH (09:02)
[2017-08-29] MEDS: prednisoLONE 1% OPTH (PRED FORTE) 5 ML BTL OU SCH ×2 (09:03→20:19)
[2017-08-29] MEDS: LIDOCAINE (LIDODERM) 5% PATCH TOP SCH (09:03)
[2017-08-29] MEDS: DOCUSATE SODIUM 100 MG (COLACE) CAP PO SCH ×2 (09:08→20:17)
[2017-08-29] MEDS ORDERED: LIDOCAINE TOPICAL 4% 50 ML BTL TP PRN ×2 (09:45→10:00)
[2017-08-29] MEDS ORDERED: LIDOCAINE JELLY 2% (XYLOCAINE) 30 ML TUBE TOP PRN (10:30)
--- NOTE | 2017-08-29 11:40 | Physical Therapy Daily Note ---
PT Daily Note-Current Subjective Pt. in bed states she has had so very many BMs that are loose and are making her bottom so sore she has had no sleep and feels so tired and even a little off balance when she is up. " I dont understand whats going on" Pain Numeric Pain Scale: 5-Moderate Pain Location: Lower Location Body Site: Sacrum Pain Description: Burning Comment: comments that her bootom si so sore from wiping so much. Has ointment to pu Appearance listless, eyes closed , falls asleep. Mental Status Patient Orientation: Person, Place, Listless Attachments: Colostomy/Ileostomy, Other-See Comments Transfers Functional [place] Measure 0=Not Assessed/NA 4=Minimal Assistance 1=Total Assistance 5=Supervision or Setup 2=Maximal Assistance 6=Modified [place] 3=Moderate Assistance 7=Complete IndependenceIRFPAI Quality Coding Scale 6 Independent with activity with or without an assistive device 5 Patient requires set up or clean up by helper. Patient completes activity by themselves 4 Supervision or touching assist (CGA). [place] provide cues , steadying assist 3 The helper provides less than half the effort to complete the activity 2 The helper provides more than half the effort to complete the activity 1 Dependent. The helper does all the effort to complete an activity 7 Patient refused to complete or attempt activity 9 The patient did not perform the activity before the current illness or injury 88 Not attempted due to Medical conditions or safety concerns Transfers (B, C, W/C) (FIM): 5 Scootin Rollin Supine to/from Sit: 5 Sit to/from Stand: 5 pt. with near LOB when initially standing and recovered indep, required SBA to CGA. Gait Training Does the Patient Walk?: Yes Gait (FIM): 1 Distance (FIM): 1=up to 49 ft (30ftx4) Gait Level of Assist: 4 Gait Persons Needed: 1 Gait Assistive Device: None pts balance iffy at times, staggered somewhat, Balance Special Test Comments balance notably much different than 2 days ago when this pt. tested 56/56 on ROPER Exercises Supine Ex: Bridging, Ankle pumps, Quad Set, Rolling, Glut sets, Heel Slides, Short Arc Quads, Scooting, Straight leg raise, Hip abd/add Supine Reps: 20 Treatments pt. to bathroom and back several times for loose BMs in which she had BM on her underwear, bed pad and slacks. Pt. using wash cloth in bathroom at stool which had BM on it. Pt. very lackadaisical and unsafe about management of her clothing and BM and her hands, needed instruction to wash hands and not handle BM etc.Pt. was assisted change clothes and take dirty clothes to washer etc. Assessment Current Status: Fair Progress PT Short Term Goals Short Term Goals Time Frame: Aug 31, 2017 Transfers (B,C,W/C) (FIM): 5 Gait (FIM): 5 Gait Distance Comment: 200 feet Gait Level of Assist: 5 Gait Assistive Device: FWW PT Group Home Goals Charge Weigher Goals PT Group Home Goals Time Frame: Sep 14, 2017 Transfers (B,C,W/C) (FIM): 6 Sit to Lying (QC): 6 Lying-Sitting on Side/Bed(QC): 6 Sit to Stand (QC): 6 Rollin Roll Left to Right (QC): 6 Chair/Ccy-xv-Osrfp Xfer(QC): 6 Car Transfer (QC): 6 Does the Patient Walk: Yes Gait (FIM): 6 Distance: 150 feet Walk 10 feet (QC): 6 Walk 10ft-Uneven Surface(QC): 6 Walk 50ft with 2 Turns (QC): 6 Walk 150 ft (QC): 6 Gait Level of Assist: 6 Gait Assistive Device: FWW Does the Pt use WC or Scooter?: No Stairs (FIM): 5 # of Steps: 12 1 Step (curb) (QC): 4 4 Steps (QC): 4 12 Steps (QC): 4 Stairs Level Of Assist: 5 Picking up an Object (QC): 5 PT Plan Treatment/Plan Treatment Plan: Continue Plan of Care Treatment Plan: Bed Mobility, Education, Functional Activity Dorothy, Functional Strength, Group Therapy, Gait, Safety, Therapeutic Exercise, Transfers Treatment Duration: Sep 14, 2017 Frequency: At least 5 of 7 days/Wk (IRF) Estimated Hrs Per Day: 1.5 hours per day Patient and/or Family Agrees t: Yes Safety Risks/Education Patient Education: Gait Training, Transfer Techniques, Correct Positioning, Safety Issues Teaching Recipient: Patient Teaching Methods: Demonstration, Discussion Response to Teaching: Verbalize Understanding, Return Demonstration, Reinforcement Needed Time/GCodes Time In: 1030 Time Out: 1130 Total Billed Treatment Time: 60 Total Billed Treatment 1,FA30m,EX30m G Codes Necessary: RENEE Rogers PTA Aug 29, 2017 11:40
[2017-08-29 11:49] VITALS: BP 93/61
[2017-08-29 12:32] LABS: BASOPHILS % (AUTO) 0 % (0-10); EOSINOPHILS % (AUTO) 0 % (0-10); HEMATOCRIT 35 % (35-52); HEMOGLOBIN 11.6 G/DL (11.5-16.0); LYMPHOCYTES # (AUTO) 2.8 X 10^3 (1.0-4.0); LYMPHOCYTES % (AUTO) 9 % (12-44); MEAN CORPUSCULAR HEMOGLOBIN 30 PG (25-34); MEAN CORPUSCULAR HGB CONC 33 G/DL (32-36); MEAN CORPUSCULAR VOLUME 90 FL (80-99); MEAN PLATELET VOLUME 9.5 FL (7.4-10.4); MONOCYTES # (AUTO) 1.7 X 10^3 (0.0-1.0); MONOCYTES % (AUTO) 5 % (0-12); NEUTROPHILS % (AUTO) 86 % (42-75); PLATELET COUNT 529 10^3/uL (130-400); RED BLOOD COUNT 3.87 10^6/uL (4.35-5.85)
[2017-08-29 12:34] LABS: WHITE BLOOD COUNT 32.6 10^3/uL (4.3-11.0)
[2017-08-29 12:47] LABS: ALBUMIN 4.2 GM/DL (3.2-4.5); BILIRUBIN,TOTAL 0.6 MG/DL (0.1-1.0); CALCIUM 9.6 MG/DL (8.5-10.1); CREATININE SERUM 0.96 MG/DL (0.60-1.30); POTASSIUM 4.7 MMOL/L (3.6-5.0); TOTAL PROTEIN 7.5 GM/DL (6.4-8.2)
[2017-08-29 12:49] LABS: BAND NEUTROPHILS 6 %; BASOPHILS % (MANUAL) 0 %; EOSINOPHILS % (MANUAL) 0 %; LYMPHOCYTES % (MANUAL) 8 %; MONOCYTES % (MANUAL) 7 %; NEUTROPHILS % (MANUAL) 79 %
[2017-08-29 12:51] LABS: TARGET CELLS SLIGHT
[2017-08-29 12:52] LABS: TOXIC GRANULATION/VACUOLAZATIO 1+
--- NOTE | 2017-08-29 13:22 | Diagnostic Imaging Report ---
INDICATION: Constipation. TIME OF EXAM: 1:21 PM No prior studies are available for comparison. FINDINGS: There is moderate stool in the right colon and transverse colon as well as the rectum. Small bowel is nondilated. No bowel obstruction is seen. Multiple calcific densities in the pelvis are noted, likely phleboliths. Left convexity lumbar scoliotic curvature is noted. IMPRESSION: Findings suggestive of constipation. No other significant abnormality is seen. Dictated by: Dictated on workstation # [id number]
[2017-08-29 13:27] LABS: BILIRUBIN,URINE NEGATIVE (NEGATIVE); CLARITY,URINE CLEAR; COLOR,URINE YELLOW; GLUCOSE, URINE (UA) NEGATIVE (NEGATIVE); KETONES,URINE NEGATIVE (NEGATIVE); LEUKOCYTE ESTERASE ,URINE 1+ (NEGATIVE); NITRITE,URINE NEGATIVE (NEGATIVE); PH,URINE 6.5 (5-9); PROTEIN,URINE 2+ (NEGATIVE); UROBILINOGEN,URINE NORMAL (NORMAL)
[2017-08-29 13:39] LABS: BACTERIA,URINE NEGATIVE /HPF
--- NOTE | 2017-08-29 13:56 | Occupational Ther Daily Note ---
OT Current Status-Daily Note Subjective Pt. reports 10/10 pain in rear vini area due to excessive toileting. notified and orders special cream. Pt. also reports 7/10 pain in head region. Nursing notified and gives pt. pain medication. Appearance Pt. in bed this morning asleep when OT entered room. Pt. has cold pack placed between her legs. Mental Status/Objective Patient Orientation: Person Functional Pray Measure 0=Not Assessed/NA 4=Minimal Assistance 1=Total Assistance 5=Supervision or Setup 2=Maximal Assistance 6=Modified Pray 3=Moderate Assistance 7=Complete Pray Memory(FIM): 4 (Pt. occasionally repeats herself and asks some of the same questions multiple times.) ADL-Treatment Functional Pray Measure 0=Not Assessed/NA 4=Minimal Assistance 1=Total Assistance 5=Supervision or Setup 2=Maximal Assistance 6=Modified Pray 3=Moderate Assistance 7=Complete IndependenceIRFPAI Quality Coding Scale 6 Independent with activity with or without an assistive device 5 Patient requires set up or clean up by helper. Patient completes activity by themselves 4 Supervision or touching assist (CGA). Barnard provide cues , steadying assist 3 The helper provides less than half the effort to complete the activity 2 The helper provides more than half the effort to complete the activity 1 Dependent. The helper does all the effort to complete an activity 7 Patient refused to complete or attempt activity 9 The patient did not perform the activity before the current illness or injury 88 Not attempted due to Medical conditions or safety concerns Grooming (FIM): 5 (SBA to brush teeth at sink.) Oral Hygiene (QC): 4 Bathing (FIM): 4 (CGA at times in stance.) Shower/Bathe Self (QC): 4 Upper Body (FIM): 5 Upper Body Dressing (QC): 4 Lower Body Dressing (FIM): 4 (CGA in stance to pull up pants.) Lower Body Dressing (QC): 4 On/Off Footwear (QC): 4 Toileting (FIM): 5 Toileting Hygiene (QC): 4 Transfers (B, C, W/C) (FIM): 4 Toilet/Commode Transfer (FIM): 4 Toilet Transfer (QC): 4 Shower Transfer(FIM): 4 Other Treatment Pt. very groggy today. After showering, while drying off, pt. fell asleep in shower. States that the shower, "just makes me so tired." Pt. closed eyes as though she were passing out. Pt. woke up quickly, but nursing notified immediately. Pt. requests to lay back in bed after showering and dressing. Pt. ambulated to bed with CGA and transferred to bed. All needs met. Pt. fell asleep. Nursing aware. Education OT Patient Education: Correct positioning, Modified ADL techniques, Progress toward Goal/Update tx plan, Purpose of tx/functional activities, Reviewed precautions, Rehab process, Transfer techniques Teaching Recipient: Patient Teaching Methods: Demonstration, Discussion Response to Teaching: Verbalize Understanding, Return Demonstration OT Short Term Goals Short Term Goals Time Frame: Aug 31, 2017 Eating(FIM): 5 Grooming(FIM): 5 Bathing(FIM): 5 Upper Body Dressing(FIM): 5 Lower Body Dressing(FIM): 5 Toileting(FIM): 5 Transfers (B,C,W/C) (FIM): 5 Toilet/Commode Transfer(FIM): 5 Shower Transfer(FIM): 5 Additional Short Term Goals: 1-Demonstrate ADL Tasks, 2-Verbalize Understanding , 3-ImproveStrength/Dorothy 1=Demonstrate adherence to instructed precautions during ADL tasks. 2=Patient will verbalize/demonstrate understanding of assistive devices/ modifications for ADL. 3=Patient will improve strength/tolerance for activity to enable patient to perform ADL's. OT Drapery Hand Goals Drapery Hand Goals Time Frame: Sep 07, 2017 Eating (FIM): 6 Eating (QC): 6 Groomin Oral Hygiene (QC): 6 Bathing(FIM): 5 Shower/Bathe Self (QC): 5 Upper Body Dressing(FIM): 6 Upper Body Dressing (QC): 6 Lower Body Dressing(FIM): 6 Lower Body Dressing (QC): 6 On/Off Footwear (QC): 6 Toileting(FIM): 6 Toileting Hygiene (QC): 6 Transfers (B,C,W/C) (FIM): 6 Toilet/Commode Transfer(FIM): 6 Toilet/Commode Transfer (QC): 6 Shower Transfer(FIM): 5 Comprehension(FIM): 6 (MET) Expression (FIM): 5 (MET) Social Interaction(FIM): 6 (MT) Problem Solving(FIM): 6 (MET) Memory(FIM): 5 (MET) 1=Demonstrate adherence to instructed precautions during ADL tasks. 2=Patient will verbalize/demonstrate understanding of assistive devices/ modifications for ADL. 3=Patient will improve strength/tolerance for activity to enable patient to perform ADL's. OT Education/Plan Problem List/Assessment Assessment: Decreased Activ Tolerance, Impaired Cognition, Impaired Funct Balance, Impaired I ADL's, Impaired Self-Care Skills Discharge Recommendations Plan/Recommendations: Continue POC Therapy D/C Recommendations: Home w/ Family Support, Occupational Therapy Home Care Treatment Plan/Plan of Care Treatment,Training & Education: Yes Patient would benefit from OT for education, treatment and training to promote independence in ADL's, mobility, safety and/or upper extremity function for ADL' s. Plan of Care: ADL Retraining, Functional Mobility, Group Exercise/Act as Ind, UE Funct Exercise/Act Treatment Duration: Sep 07, 2017 Frequency: At least 5 of 7 days/Wk (IRF) Estimated Hrs Per Day: 1.5 hours per day Agreement: Yes Rehab Potential: Good Time/GCodes Start Time: 08:15 Stop Time: 09:15 Total Time Billed (hr/min): 60 Billed Treatment Time 1, ADL x 4 TAHIR MARTINEZ OT Aug 29, 2017 13:55
--- NOTE | 2017-08-29 14:33 | Therapy Group Daily Note ---
Therapy Daily Group Note Patient Education Topic Home Safety Exercises LE Seated Exercise, UE Exercise Other/Notes Pt ambulated to therapy gym for OT/PT group. Group consisted of introductions ( name, place living, favorite word), socialization, seated UE/LE exercises, home safety education and home safety jeopardy. Pt was able to appropriately introduce self and actively listened to peers. Pt listened to education and was able to answer questions about home safety. Pt described ways that she would use safety techniques in her home. Pt was able to answer questions on home safety jeopardy quiz. Pt was able to complete UE/LE seated exercises without difficulty. After group, pt ambulated to room and laid in bed with call light/phone in reach. All needs met in room. Start Time: 13:00 Stop Time: 14:10 Total Billed Treatment Time: 70 Total Billed Treatment 1-GRP ALEXANDRIA RINALDI Aug 29, 2017 14:32
--- NOTE | 2017-08-29 14:59 | Diagnostic Imaging Report ---
INDICATION: Elevated white blood cell count. TIME OF EXAM: 3:06 PM COMPARISON: No prior chest radiographs are available for comparison. FINDINGS: There is mild thoracolumbar scoliotic curvature. The heart size is normal. No infiltrates are identified. Pulmonary vascularity is normal. No effusion or pneumothorax is identified. IMPRESSION: No acute cardiopulmonary processes detected. Dictated by: Dictated on workstation # [id number]
[2017-08-29] MEDS: LACTATED RINGERS 1,000 ML IV SCH (15:26)
[2017-08-29] MEDS: MILK OF MAGNESIA 400 MG/5 ML 30 ML UDC PO PRN (15:55)
[2017-08-29] MEDS ORDERED: PIPERACILLIN SODIUM/TAZOBACTAM 4.5 GM in NS (IVPB) 100 ML IV SCH (16:00)
[2017-08-29 17:11] VITALS: BP 92/59
[2017-08-29] MEDS: GABAPENTIN 600 MG (NEURONTIN) TAB PO SCH (20:16)
[2017-08-29] MEDS: LOTEPREDNOL OPTH OU SCH (20:17)
[2017-08-29] MEDS: LIDODERM PATCH REMOVAL TP SCH (20:20)
--- NOTE | 2017-08-29 20:36 | PM & R (SOAP) Progress Note ---
Subjective Time Seen by Provider: 20:30 Subjective/Events-last exam Patient was seen in her room this evening Patient SBA for transfers.Patient with elevated WBC count and Lactic acid but U/A CXR and Abd xray ok except for constipation Meds adjusted for that Appreciate Dr robin note and orders Patient placed on IV antibiotics empirically.Patient with crani site healing well and patient asking about removal of saul Will f/u in AM Objective Exam Last Set of Vital Signs Vital Signs Date Time Temp Pulse Resp B/P (MAP) Pulse Ox O2 Delivery O2 Flow Rate FiO2 08/29/17 17:11 97.6 98 18 92/59 (70) 97 Room Air Capillary Refill : I&O Intake and Output 08/29/17 00:00 Intake Total 1240 ml Balance 1240 ml Intake Oral 1240 ml # Voids 5 # Bowel Movements 1 General: Alert, Oriented X3, Cooperative, No Acute Distress, Other (crani site healing well) HEENT: Atraumatic, PERRLA, EOMI, Mucous Memb Moist/[place], Other (as per above) Neck: Supple, No JVD Lungs: Clear to Auscultation Heart: Regular Rate Abdomen: Normal Bowel Sounds, Soft Extremities: No Edema Skin: Other (crani site healing well) Neuro: Sensation Intact, Other (Mild STM loss Strength 3+/5 BUES 4+/5 BLES) Results Lab Laboratory Tests 08/29/17 12:19: White Blood Count 32.6*H, Red Blood Count 3.87L, Hemoglobin 11.6, Hematocrit 35 , Mean Corpuscular Volume 90, Mean Corpuscular Hemoglobin 30, Mean Corpuscular Hemoglobin Concent 33, Red Cell Distribution Width 15.0H, Platelet Count 529H, Mean Platelet Volume 9.5, Neutrophils (%) (Auto) 86H, Lymphocytes (%) (Auto) 9L , Monocytes (%) (Auto) 5, Eosinophils (%) (Auto) 0, Basophils (%) (Auto) 0, Neutrophils # (Auto) 28.0H, Lymphocytes # (Auto) 2.8, Monocytes # (Auto) 1.7H, Eosinophils # (Auto) 0.0, Basophils # (Auto) 0.0, Neutrophils % (Manual) 79, Lymphocytes % (Manual) 8, Monocytes % (Manual) 7, Eosinophils % (Manual) 0, Basophils % (Manual) 0, Band Neutrophils 6, Toxic Granulation 1+, Target Cells SLIGHT, Sodium Level 133L, Potassium Level 4.7, Chloride Level 98, Carbon Dioxide Level 25, Anion Gap 10, Blood Urea Nitrogen 16, Creatinine 0.96, Estimat Glomerular Filtration Rate 60, BUN/Creatinine Ratio 17, Glucose Level 120H, Calcium Level 9.6, Total Bilirubin 0.6, Aspartate Amino Transf (AST/SGOT) 25, Alanine Aminotransferase (ALT/SGPT) 46, Alkaline Phosphatase 158H, Total Protein 7.5, Albumin 4.2 08/29/17 13:14: Urine Color YELLOW, Urine Clarity CLEAR, Urine pH 6.5, Urine Specific [place] 1.015L, Urine Protein 2+H, Urine Glucose (UA) NEGATIVE, Urine Ketones NEGATIVE, Urine Nitrite NEGATIVE, Urine Bilirubin NEGATIVE, Urine Urobilinogen NORMAL, Urine Leukocyte Esterase 1+H, Urine RBC (Auto) NEGATIVE, Urine RBC NONE, Urine WBC 2-5, Urine Squamous Epithelial Cells 2-5, Urine Crystals NONE, Urine Bacteria NEGATIVE, Urine Casts NONE, Urine Mucus NEGATIVE, Urine Culture Indicated NO 08/29/17 15:03: Lactic Acid Level 2.64*H 08/29/17 17:47: Lactic Acid Level 2.41*H Assessment/Plan Assessment S/P Crani and excision rt temtpral Meningioma Post op Headaches Post op anemia Post op seizure prophylaxis on Keppra Post op DVT Prophylaxis on Heparin SQ HX of Breast CA Postop constipation treated Postop leukocytosis without fever associated with Elevated Lactic acid Plan Continue PT/OT/ST Team Conference 08-31-17 F/U with DR Ramsay re Leukocytosis and Elevated Serum lactic acid F/U with patients surgeon at [facility] re staple removal Trend laabs and continue antibiotics for now JANNETH BECKFORD MD Aug 29, 2017 8:36 pm
[2017-08-29] MEDS: PIPERACILLIN SODIUM/TAZOBACTAM 4.5 GM in NS (IVPB) 100 ML IV SCH (22:01)
[2017-08-29] MEDS: ACETAMINOPHEN 325 MG TABLET/CAPLET (TYLENOL) PO PRN (22:01)
[2017-08-29] MEDS ORDERED: LACTATED RINGERS 1,000 ML IV ONE (22:30)
[2017-08-30] MEDS: LACTATED RINGERS 1,000 ML IV SCH ×2 (00:28→04:40)
[2017-08-30 00:48] LABS: HEMOGLOBIN 9.4 G/DL (11.5-16.0); MEAN PLATELET VOLUME 9.6 FL (7.4-10.4); RED BLOOD COUNT 3.19 10^6/uL (4.35-5.85); WHITE BLOOD COUNT 27.3 10^3/uL (4.3-11.0)
[2017-08-30] MEDS: MILK OF MAGNESIA 400 MG/5 ML 30 ML UDC PO PRN (04:40)
[2017-08-30 05:07] VITALS: BP 96/61
[2017-08-30] MEDS: PIPERACILLIN SODIUM/TAZOBACTAM 4.5 GM in NS (IVPB) 100 ML IV SCH ×3 (06:07→20:45)
[2017-08-30] MEDS: CALCIUM CARBONATE 600 MG (CALCARB) TAB PO SCH (06:07)
[2017-08-30] MEDS: MULTIVIT W/MINERALS TAB (THERAGRAN M) PO SCH (06:07)
[2017-08-30 06:22] LABS: BASOPHILS # (AUTO) 0.1 10^3/uL (0.0-0.1); BASOPHILS % (AUTO) 0 % (0-10); EOSINOPHILS # (AUTO) 0.2 10^3/uL (0.0-0.3); EOSINOPHILS % (AUTO) 1 % (0-10); HEMATOCRIT 29 % (35-52); HEMOGLOBIN 9.7 G/DL (11.5-16.0); LYMPHOCYTES # (AUTO) 3.9 X 10^3 (1.0-4.0); LYMPHOCYTES % (AUTO) 15 % (12-44); MEAN CORPUSCULAR HEMOGLOBIN 30 PG (25-34); MEAN CORPUSCULAR HGB CONC 33 G/DL (32-36); MEAN CORPUSCULAR VOLUME 91 FL (80-99); MEAN PLATELET VOLUME 9.6 FL (7.4-10.4); MONOCYTES # (AUTO) 2.3 X 10^3 (0.0-1.0); MONOCYTES % (AUTO) 9 % (0-12); NEUTROPHILS # (AUTO) 19.3 X 10^3 (1.8-7.8); NEUTROPHILS % (AUTO) 75 % (42-75); PLATELET COUNT 448 10^3/uL (130-400); RED BLOOD COUNT 3.21 10^6/uL (4.35-5.85); RED CELL DISTRIBUTION WIDTH 15.3 % (10.0-14.5); WHITE BLOOD COUNT 25.7 10^3/uL (4.3-11.0)
[2017-08-30 06:41] LABS: ANISOCYTOSIS SLIGHT; BAND NEUTROPHILS 0 %; BASOPHILS % (MANUAL) 0 %; EOSINOPHILS % (MANUAL) 2 %; LYMPHOCYTES % (MANUAL) 19 %; MONOCYTES % (MANUAL) 2 %; NEUTROPHILS % (MANUAL) 76 %; POIKILOCYTOSIS SLIGHT; REACTIVE LYMPHOCYTES 1 %; TARGET CELLS SLIGHT
[2017-08-30 06:52] LABS: ALANINE AMINOTRANSFERASE 49 U/L (0-55); ALBUMIN 3.2 GM/DL (3.2-4.5); ALKALINE PHOSPHATASE 121 U/L (40-136); BILIRUBIN,TOTAL 0.7 MG/DL (0.1-1.0); BUN/CREATININE RATIO 15; CALCIUM 8.6 MG/DL (8.5-10.1); CARBON DIOXIDE 20 MMOL/L (21-32); CHLORIDE 107 MMOL/L (98-107); CREATININE SERUM 0.84 MG/DL (0.60-1.30); GFR ESTIMATED > 60; GLUCOSE 97 MG/DL (70-105); POTASSIUM 4.8 MMOL/L (3.6-5.0); SODIUM 138 MMOL/L (135-145); TOTAL PROTEIN 5.8 GM/DL (6.4-8.2)
--- NOTE | 2017-08-30 08:36 | Progress Note (SOAP) ---
Subjective Time Seen by Provider: 08:30 Subjective/Events-last exam Patient feeling better today. White blood cell count elevated. Serum lactic acid normal now. Objective Exam Vital Signs Date Time Temp Pulse Resp B/P (MAP) Pulse Ox O2 Delivery O2 Flow Rate FiO2 08/30/17 05:07 96.9 77 18 96/61 (73) 97 Room Air 08/29/17 22:01 100.5 08/29/17 20:10 Room Air 08/29/17 17:11 97.6 98 18 92/59 (70) 97 Room Air 08/29/17 11:49 98.8 96 18 93/61 (72) 99 Room Air 08/29/17 09:51 Room Air I & O 08/30/17 07:00 Intake Total 3700 ml Balance 3700 ml Capillary Refill : General Appearance: No Apparent Distress, WD/WN HEENT: Normal ENT Inspection Neck: Full Range of Motion, Normal Inspection Results Lab Laboratory Tests 08/29/17 12:19 08/30/17 00:35 08/30/17 06:14 Laboratory Tests 08/29/17 12:19: White Blood Count 32.6*H, Red Blood Count 3.87L, Hemoglobin 11.6, Hematocrit 35 , Mean Corpuscular Volume 90, Mean Corpuscular Hemoglobin 30, Mean Corpuscular Hemoglobin Concent 33, Red Cell Distribution Width 15.0H, Platelet Count 529H, Mean Platelet Volume 9.5, Neutrophils (%) (Auto) 86H, Lymphocytes (%) (Auto) 9L , Monocytes (%) (Auto) 5, Eosinophils (%) (Auto) 0, Basophils (%) (Auto) 0, Neutrophils # (Auto) 28.0H, Lymphocytes # (Auto) 2.8, Monocytes # (Auto) 1.7H, Eosinophils # (Auto) 0.0, Basophils # (Auto) 0.0, Neutrophils % (Manual) 79, Lymphocytes % (Manual) 8, Monocytes % (Manual) 7, Eosinophils % (Manual) 0, Basophils % (Manual) 0, Band Neutrophils 6, Toxic Granulation 1+, Target Cells SLIGHT, Sodium Level 133L, Potassium Level 4.7, Chloride Level 98, Carbon Dioxide Level 25, Anion Gap 10, Blood Urea Nitrogen 16, Creatinine 0.96, Estimat Glomerular Filtration Rate 60, BUN/Creatinine Ratio 17, Glucose Level 120H, Calcium Level 9.6, Total Bilirubin 0.6, Aspartate Amino Transf (AST/SGOT) 25, Alanine Aminotransferase (ALT/SGPT) 46, Alkaline Phosphatase 158H, Total Protein 7.5, Albumin 4.2 08/29/17 13:14: Urine Color YELLOW, Urine Clarity CLEAR, Urine pH 6.5, Urine Specific [place] 1.015L, Urine Protein 2+H, Urine Glucose (UA) NEGATIVE, Urine Ketones NEGATIVE, Urine Nitrite NEGATIVE, Urine Bilirubin NEGATIVE, Urine Urobilinogen NORMAL, Urine Leukocyte Esterase 1+H, Urine RBC (Auto) NEGATIVE, Urine RBC NONE, Urine WBC 2-5, Urine Squamous Epithelial Cells 2-5, Urine Crystals NONE, Urine Bacteria NEGATIVE, Urine Casts NONE, Urine Mucus NEGATIVE, Urine Culture Indicated NO 08/29/17 15:03: Lactic Acid Level 2.64*H 08/29/17 17:47: Lactic Acid Level 2.41*H 08/29/17 21:19: Lactic Acid Level 2.88*H 08/30/17 00:35: Lactic Acid Level 1.48, White Blood Count 27.3H, Red Blood Count 3.19L, Hemoglobin 9.4L, Hematocrit 29L, Mean Corpuscular Volume 90, Mean Corpuscular Hemoglobin 30, Mean Corpuscular Hemoglobin Concent 33, Red Cell Distribution Width 15.0H, Platelet Count 463H, Mean Platelet Volume 9.6 08/30/17 06:14: White Blood Count 25.7H, Red Blood Count 3.21L, Hemoglobin 9.7L, Hematocrit 29L , Mean Corpuscular Volume 91, Mean Corpuscular Hemoglobin 30, Mean Corpuscular Hemoglobin Concent 33, Red Cell Distribution Width 15.3H, Platelet Count 448H, Mean Platelet Volume 9.6, Neutrophils (%) (Auto) 75, Lymphocytes (%) (Auto) 15, Monocytes (%) (Auto) 9, Eosinophils (%) (Auto) 1, Basophils (%) (Auto) 0, Neutrophils # (Auto) 19.3H, Lymphocytes # (Auto) 3.9, Monocytes # (Auto) 2.3H, Eosinophils # (Auto) 0.2, Basophils # (Auto) 0.1, Neutrophils % (Manual) 76, Lymphocytes % (Manual) 19, Monocytes % (Manual) 2, Eosinophils % (Manual) 2, Basophils % (Manual) 0, Band Neutrophils 0, Reactive Lymphocytes 1, Poikilocytosis SLIGHT, Anisocytosis SLIGHT, Target Cells SLIGHT, Sodium Level 138, Potassium Level 4.8, Chloride Level 107, Carbon Dioxide Level 20L, Anion Gap 11, Blood Urea Nitrogen 13, Creatinine 0.84, Estimat Glomerular Filtration Rate > 60, BUN/Creatinine Ratio 15, Glucose Level 97, Calcium Level 8.6, Total Bilirubin 0.7, Aspartate Amino Transf (AST/SGOT) 35H, Alanine Aminotransferase ( ALT/SGPT) 49, Alkaline Phosphatase 121, Total Protein 5.8L, Albumin 3.2 Assessment/Plan Assessment/Plan Assess & Plan/Chief Complaint Brain mass. History of breast cancer. Stem cell transplant. To find out path report from [facility]. . Brain tumor meningioma. History of breast cancer. Stem cell transplant. Patient had some pain in the right side of face. To monitor. . 08/26/17. Brain tumor meningioma. Patient happy today Breast cancer history stem cell transplant history. . 08/29/17. Brain tumor meningioma. Breast cancer history. Stem cell transplant history. Patient has been constipated. Patient doing okay today except having pain in the rectum. . At least we are 12/12. Benign brain tumor. Meningioma. Breast cancer history. Stem cell transplant history. Patient has a bowel movement. Patient feeling better today. Leukocytosis Clinical Quality Measures DVT/VTE Risk/Contraindication: Risk Factor Score Per Nursin RFS Level Per Nursing on Admit: 4+=Very High JANIE MATHIS DO Aug 30, 2017 08:36
[2017-08-30] MEDS: METHOCARBAMOL 500 MG (ROBAXIN) TABLET PO SCH ×2 (08:38→20:44)
[2017-08-30] MEDS: fluCOnazole (DIFLUCAN) 100 MG TAB PO SCH (08:38)
[2017-08-30] MEDS: LEVETIRACETAM 500 MG (KEPPRA) TAB PO SCH ×2 (08:38→20:45)
[2017-08-30] MEDS: ASPIRIN E.C. 81 MG (ECOTRIN) TAB PO SCH (08:38)
[2017-08-30] MEDS: VITAMIN D3 1,000 UNITS (CHOLECALCIFEROL) TABLET PO SCH (08:38)
[2017-08-30] MEDS: DOCUSATE SODIUM 100 MG (COLACE) CAP PO SCH ×2 (08:39→19:51)
[2017-08-30] MEDS: prednisoLONE 1% OPTH (PRED FORTE) 5 ML BTL OU SCH ×2 (08:42→20:47)
[2017-08-30] MEDS: LIDOCAINE (LIDODERM) 5% PATCH TOP SCH (08:42)
--- NOTE | 2017-08-30 08:49 | PM & R (SOAP) Progress Note ---
Subjective Time Seen by Provider: 08:10 Subjective/Events-last exam Patient was seen in her room this AM Patient SBA for transfers Had lowgrade fever last night but now afebrile and White count improving and Lactic acid has normalized Patient c/o some numbness in the distribution of rt facial nerve but overall improving .pATIENT HAD appointment at [facility] today for staple removal but has been rescheduled Incision site crani healing well will see about d/c of saul Review of Systems HEENT: Other (rtv facial numbness) Objective Exam Last Set of Vital Signs Vital Signs Date Time Temp Pulse Resp B/P (MAP) Pulse Ox O2 Delivery O2 Flow Rate FiO2 08/30/17 05:07 96.9 77 18 96/61 (73) 97 Room Air Capillary Refill : I&O Intake and Output 08/30/17 00:00 Intake Total 2250 ml Balance 2250 ml Intake Oral 2150 ml IV Total 100 ml # Voids 12 # Bowel Movements 4 General: Alert, Oriented X3, Cooperative, No Acute Distress, Other (crani site healing well) HEENT: Atraumatic, PERRLA, EOMI, Mucous Memb Moist/[place], Other (as per above) Neck: Supple, No JVD Lungs: Clear to Auscultation Heart: Regular Rate Abdomen: Normal Bowel Sounds, Soft Extremities: No Edema Skin: Other (crani site healing well) Neuro: Sensation Intact, Other (Mild STM loss Strength 3+/5 BUES 4+/5 BLES) Results Lab Laboratory Tests 08/29/17 12:19: White Blood Count 32.6*H, Red Blood Count 3.87L, Hemoglobin 11.6, Hematocrit 35 , Mean Corpuscular Volume 90, Mean Corpuscular Hemoglobin 30, Mean Corpuscular Hemoglobin Concent 33, Red Cell Distribution Width 15.0H, Platelet Count 529H, Mean Platelet Volume 9.5, Neutrophils (%) (Auto) 86H, Lymphocytes (%) (Auto) 9L , Monocytes (%) (Auto) 5, Eosinophils (%) (Auto) 0, Basophils (%) (Auto) 0, Neutrophils # (Auto) 28.0H, Lymphocytes # (Auto) 2.8, Monocytes # (Auto) 1.7H, Eosinophils # (Auto) 0.0, Basophils # (Auto) 0.0, Neutrophils % (Manual) 79, Lymphocytes % (Manual) 8, Monocytes % (Manual) 7, Eosinophils % (Manual) 0, Basophils % (Manual) 0, Band Neutrophils 6, Toxic Granulation 1+, Target Cells SLIGHT, Sodium Level 133L, Potassium Level 4.7, Chloride Level 98, Carbon Dioxide Level 25, Anion Gap 10, Blood Urea Nitrogen 16, Creatinine 0.96, Estimat Glomerular Filtration Rate 60, BUN/Creatinine Ratio 17, Glucose Level 120H, Calcium Level 9.6, Total Bilirubin 0.6, Aspartate Amino Transf (AST/SGOT) 25, Alanine Aminotransferase (ALT/SGPT) 46, Alkaline Phosphatase 158H, Total Protein 7.5, Albumin 4.2 08/29/17 13:14: Urine Color YELLOW, Urine Clarity CLEAR, Urine pH 6.5, Urine Specific [place] 1.015L, Urine Protein 2+H, Urine Glucose (UA) NEGATIVE, Urine Ketones NEGATIVE, Urine Nitrite NEGATIVE, Urine Bilirubin NEGATIVE, Urine Urobilinogen NORMAL, Urine Leukocyte Esterase 1+H, Urine RBC (Auto) NEGATIVE, Urine RBC NONE, Urine WBC 2-5, Urine Squamous Epithelial Cells 2-5, Urine Crystals NONE, Urine Bacteria NEGATIVE, Urine Casts NONE, Urine Mucus NEGATIVE, Urine Culture Indicated NO 08/29/17 15:03: Lactic Acid Level 2.64*H 08/29/17 17:47: Lactic Acid Level 2.41*H 08/29/17 21:19: Lactic Acid Level 2.88*H 08/30/17 00:35: Lactic Acid Level 1.48, White Blood Count 27.3H, Red Blood Count 3.19L, Hemoglobin 9.4L, Hematocrit 29L, Mean Corpuscular Volume 90, Mean Corpuscular Hemoglobin 30, Mean Corpuscular Hemoglobin Concent 33, Red Cell Distribution Width 15.0H, Platelet Count 463H, Mean Platelet Volume 9.6 08/30/17 06:14: White Blood Count 25.7H, Red Blood Count 3.21L, Hemoglobin 9.7L, Hematocrit 29L , Mean Corpuscular Volume 91, Mean Corpuscular Hemoglobin 30, Mean Corpuscular Hemoglobin Concent 33, Red Cell Distribution Width 15.3H, Platelet Count 448H, Mean Platelet Volume 9.6, Neutrophils (%) (Auto) 75, Lymphocytes (%) (Auto) 15, Monocytes (%) (Auto) 9, Eosinophils (%) (Auto) 1, Basophils (%) (Auto) 0, Neutrophils # (Auto) 19.3H, Lymphocytes # (Auto) 3.9, Monocytes # (Auto) 2.3H, Eosinophils # (Auto) 0.2, Basophils # (Auto) 0.1, Neutrophils % (Manual) 76, Lymphocytes % (Manual) 19, Monocytes % (Manual) 2, Eosinophils % (Manual) 2, Basophils % (Manual) 0, Band Neutrophils 0, Reactive Lymphocytes 1, Poikilocytosis SLIGHT, Anisocytosis SLIGHT, Target Cells SLIGHT, Sodium Level 138, Potassium Level 4.8, Chloride Level 107, Carbon Dioxide Level 20L, Anion Gap 11, Blood Urea Nitrogen 13, Creatinine 0.84, Estimat Glomerular Filtration Rate > 60, BUN/Creatinine Ratio 15, Glucose Level 97, Calcium Level 8.6, Total Bilirubin 0.7, Aspartate Amino Transf (AST/SGOT) 35H, Alanine Aminotransferase ( ALT/SGPT) 49, Alkaline Phosphatase 121, Total Protein 5.8L, Albumin 3.2 Assessment/Plan Assessment S/P Crani and excision rt temtpral Meningioma Post op Headaches Post op anemia Post op seizure prophylaxis on Keppra Post op DVT Prophylaxis on Heparin SQ HX of Breast CA Postop constipation treated Postop leukocytosis with low grade fever last night associated with Elevated Lactic acid now improved with decling WBC count RT Facial numbness Plan Continue PT/OT/ST Team Conference tomorrow 3-7-18 F/U with DR Sobia owens Leukocytosis and Elevated Serum lactic acid-improving D/C crani saul Trend labs and continue antibiotics for now JANNETH BECKFORD MD Aug 30, 2017 08:49
[2017-08-30] MEDS ORDERED: PHARMACY TO DOSE IM SCH (09:45)
--- NOTE | 2017-08-30 10:52 | Occupational Ther Daily Note ---
OT Current Status-Daily Note Subjective Pt. apologizes for being incontinent of bowel. Pt. is encouraged that it is not her fault. Pt. is diagnosed with C-diff. Appearance Pt. is in bed. Agrees to shower and work with OT. Mental Status/Objective Patient Orientation: Person, Place Functional [place] Measure 0=Not Assessed/NA 4=Minimal Assistance 1=Total Assistance 5=Supervision or Setup 2=Maximal Assistance 6=Modified [place] 3=Moderate Assistance 7=Complete [place] Attachments: IV ADL-Treatment Functional [place] Measure 0=Not Assessed/NA 4=Minimal Assistance 1=Total Assistance 5=Supervision or Setup 2=Maximal Assistance 6=Modified [place] 3=Moderate Assistance 7=Complete IndependenceIRFPAI Quality Coding Scale 6 Independent with activity with or without an assistive device 5 Patient requires set up or clean up by helper. Patient completes activity by themselves 4 Supervision or touching assist (CGA). [place] provide cues , steadying assist 3 The helper provides less than half the effort to complete the activity 2 The helper provides more than half the effort to complete the activity 1 Dependent. The helper does all the effort to complete an activity 7 Patient refused to complete or attempt activity 9 The patient did not perform the activity before the current illness or injury 88 Not attempted due to Medical conditions or safety concerns Grooming (FIM): 6 (Pt. is able to brush teeth and hair at sink with no issues.) Oral Hygiene (QC): 6 Bathing (FIM): 5 (SBA to bathe self.) Shower/Bathe Self (QC): 4 Upper Body (FIM): 5 Upper Body Dressing (QC): 4 Lower Body Dressing (FIM): 5 Lower Body Dressing (QC): 4 On/Off Footwear (QC): 4 Toileting (FIM): 6 Toileting Hygiene (QC): 6 Transfers (B, C, W/C) (FIM): 6 Toilet/Commode Transfer (FIM): 6 Toilet Transfer (QC): 6 Shower Transfer(FIM): 5 (SBA with IV to transfer into shower.) Other Treatment Pt. does require cues at times in shower for safety. Pt. will automatically stand and attempt to bend over to pick something up. At times, seems unsafe doing this. Otherwise, demonstrates good balance. Pt. diagnosed with C-Diff today. Education OT Patient Education: Correct positioning, Modified ADL techniques, Progress toward Goal/Update tx plan, Purpose of tx/functional activities, Reviewed precautions, Rehab process, Transfer techniques Teaching Recipient: Patient Teaching Methods: Demonstration, Discussion Response to Teaching: Verbalize Understanding, Return Demonstration OT Short Term Goals Short Term Goals Time Frame: Aug 31, 2017 Eating(FIM): 5 Grooming(FIM): 5 Bathing(FIM): 5 Upper Body Dressing(FIM): 5 Lower Body Dressing(FIM): 5 Toileting(FIM): 5 Transfers (B,C,W/C) (FIM): 5 Toilet/Commode Transfer(FIM): 5 Shower Transfer(FIM): 5 Additional Short Term Goals: 1-Demonstrate ADL Tasks, 2-Verbalize Understanding , 3-ImproveStrength/Dorothy 1=Demonstrate adherence to instructed precautions during ADL tasks. 2=Patient will verbalize/demonstrate understanding of assistive devices/ modifications for ADL. 3=Patient will improve strength/tolerance for activity to enable patient to perform ADL's. OT Assisted Goals Customer Strategy Manager Goals Time Frame: Sep 07, 2017 Eating (FIM): 6 Eating (QC): 6 Groomin Oral Hygiene (QC): 6 Bathing(FIM): 5 Shower/Bathe Self (QC): 5 Upper Body Dressing(FIM): 6 Upper Body Dressing (QC): 6 Lower Body Dressing(FIM): 6 Lower Body Dressing (QC): 6 On/Off Footwear (QC): 6 Toileting(FIM): 6 Toileting Hygiene (QC): 6 Transfers (B,C,W/C) (FIM): 6 Toilet/Commode Transfer(FIM): 6 Toilet/Commode Transfer (QC): 6 Shower Transfer(FIM): 5 Comprehension(FIM): 6 (MET) Expression (FIM): 5 (MET) Social Interaction(FIM): 6 (MT) Problem Solving(FIM): 6 (MET) Memory(FIM): 5 (MET) 1=Demonstrate adherence to instructed precautions during ADL tasks. 2=Patient will verbalize/demonstrate understanding of assistive devices/ modifications for ADL. 3=Patient will improve strength/tolerance for activity to enable patient to perform ADL's. OT Education/Plan Problem List/Assessment Assessment: Decreased Activ Tolerance, Impaired I ADL's, Impaired Self-Care Skills Discharge Recommendations Plan/Recommendations: Continue POC Therapy D/C Recommendations: Home w/ Family Support, Occupational Therapy Home Care Target Placement Home with spouse. Treatment Plan/Plan of Care Treatment,Training & Education: Yes Patient would benefit from OT for education, treatment and training to promote independence in ADL's, mobility, safety and/or upper extremity function for ADL' s. Plan of Care: ADL Retraining, Functional Mobility, Group Exercise/Act as Ind, UE Funct Exercise/Act Treatment Duration: Sep 07, 2017 Frequency: At least 5 of 7 days/Wk (IRF) Estimated Hrs Per Day: 1.5 hours per day Agreement: Yes Rehab Potential: Good Time/GCodes Start Time: 08:30 Stop Time: 09:30 Total Time Billed (hr/min): 60 Billed Treatment Time 1, ADL x 4 TAHIR MARTINEZ OT Aug 30, 2017 10:51
[2017-08-30] MEDS ORDERED: metroNIDAZOLE 500 MG/100 ML IVPB (PRE-MIX) IV SCH (12:00)
--- NOTE | 2017-08-30 12:35 | Physical Therapy Daily Note ---
PT Daily Note-Current Subjective Pt sitting in recliner upon arrival. Pt agrees to PT. Pt continues to repeat conversations she has already mentioned. Pain Numeric Pain Scale: 3 Location: Dorsal Location Body Site: Sacrum Pain Description: Ache Mental Status Patient Orientation: Person, Place, Situation Transfers Functional [place] Measure 0=Not Assessed/NA 4=Minimal Assistance 1=Total Assistance 5=Supervision or Setup 2=Maximal Assistance 6=Modified [place] 3=Moderate Assistance 7=Complete IndependenceIRFPAI Quality Coding Scale 6 Independent with activity with or without an assistive device 5 Patient requires set up or clean up by helper. Patient completes activity by themselves 4 Supervision or touching assist (CGA). [place] provide cues , steadying assist 3 The helper provides less than half the effort to complete the activity 2 The helper provides more than half the effort to complete the activity 1 Dependent. The helper does all the effort to complete an activity 7 Patient refused to complete or attempt activity 9 The patient did not perform the activity before the current illness or injury 88 Not attempted due to Medical conditions or safety concerns Scootin Sit to/from Stand: 6 Sit to Stand (QC): 6 Weight Bearing Right Lower Extremity: Right Full Weight Bearing Left Lower Extremity: Left Full Weight Bearing Gait Training Does the Patient Walk?: Yes Distance (FIM): 2=178-05 ft Distance: 100' Walk 10 feet (QC): 6 Walk 50 ft with 2 Turns(QC): 6 Gait Level of Assist: 6 Gait Persons Needed: 1 Gait Assistive Device: None Pt walks in room due to being on Isolation. Pt occasionally steady herself by touching near by objects. Wheelchair Training Does the Pt Use a Wheelchair?: No Exercises Seated Therapy Exercises: Ankle pumps, Long arc quads, Hip flexion, Kicking activity, Hip abd/add Seated Reps: 15 Treatments Pt transfers from recliner to standing using FWW at Mod I. Pt ambulates in room w/o AD at Mod I. Pt completes Seated Ex in recliner. Pt uses restroom independently. Pt wants to discuss tomorrow's weekly meeting and chance of possible discharge. Pt resting in recliner at end of tx with all needs met and lunch present. Assessment Current Status: Good Progress Pt occasionally steady self on nearby objects when she feels a little off balance. Pt has possible C-diff and is in isolation. PT Short Term Goals Short Term Goals Time Frame: Aug 31, 2017 Transfers (B,C,W/C) (FIM): 5 Gait (FIM): 5 Gait Distance Comment: 200 feet Gait Level of Assist: 5 Gait Assistive Device: FWW PT Alf Goals Voice Coach Goals PT Voice Coach Goals Time Frame: Sep 14, 2017 Transfers (B,C,W/C) (FIM): 6 Sit to Lying (QC): 6 Lying-Sitting on Side/Bed(QC): 6 Sit to Stand (QC): 6 Rollin Roll Left to Right (QC): 6 Chair/Snt-fh-Rdygi Xfer(QC): 6 Car Transfer (QC): 6 Does the Patient Walk: Yes Gait (FIM): 6 Distance: 150 feet Walk 10 feet (QC): 6 Walk 10ft-Uneven Surface(QC): 6 Walk 50ft with 2 Turns (QC): 6 Walk 150 ft (QC): 6 Gait Level of Assist: 6 Gait Assistive Device: FWW Does the Pt use WC or Scooter?: No Stairs (FIM): 5 # of Steps: 12 1 Step (curb) (QC): 4 4 Steps (QC): 4 12 Steps (QC): 4 Stairs Level Of Assist: 5 Picking up an Object (QC): 5 PT Plan Problem List Problem List: Activity Tolerance, Safety Treatment/Plan Treatment Plan: Continue Plan of Care Treatment Plan: Bed Mobility, Education, Functional Activity Dorothy, Functional Strength, Group Therapy, Gait, Safety, Therapeutic Exercise, Transfers Treatment Duration: Sep 14, 2017 Frequency: At least 5 of 7 days/Wk (IRF) Estimated Hrs Per Day: 1.5 hours per day Patient and/or Family Agrees t: Yes Safety Risks/Education Patient Education: Gait Training, Transfer Techniques, Correct Positioning, Safety Issues Teaching Recipient: Patient Teaching Methods: Discussion Response to Teaching: Verbalize Understanding Time/GCodes Time In: 1030 Time Out: 1130 Total Billed Treatment Time: 60 Total Billed Treatment 1, GT (15m), EX (20m) & FA x2 (25m) DARIAN DILL MEDICAL CLAIMS REPRESENTATIVE Aug 30, 2017 12:35
[2017-08-30] MEDS: VANCOMYCIN ORAL 250 MG/5 ML 60 ML PO SCH ×4 (12:42→18:11)
--- NOTE | 2017-08-30 15:00 | Occupational Ther Daily Note ---
OT Current Status-Daily Note Subjective No pain reported. Pt. does show OT IV in left hand. States that she has to be careful with this. Appearance Pt. up in chair. Agrees to Ue exercises with OT in room. Mental Status/Objective Patient Orientation: Person, Place Functional [place] Measure 0=Not Assessed/NA 4=Minimal Assistance 1=Total Assistance 5=Supervision or Setup 2=Maximal Assistance 6=Modified [place] 3=Moderate Assistance 7=Complete [place] Attachments: IV ADL-Treatment Functional [place] Measure 0=Not Assessed/NA 4=Minimal Assistance 1=Total Assistance 5=Supervision or Setup 2=Maximal Assistance 6=Modified [place] 3=Moderate Assistance 7=Complete IndependenceIRFPAI Quality Coding Scale 6 Independent with activity with or without an assistive device 5 Patient requires set up or clean up by helper. Patient completes activity by themselves 4 Supervision or touching assist (CGA). [place] provide cues , steadying assist 3 The helper provides less than half the effort to complete the activity 2 The helper provides more than half the effort to complete the activity 1 Dependent. The helper does all the effort to complete an activity 7 Patient refused to complete or attempt activity 9 The patient did not perform the activity before the current illness or injury 88 Not attempted due to Medical conditions or safety concerns Other Treatment Pt. given 3 lb. dumbbell. Completed 5 right sided exercises x 15 reps each with dumbbell, and then completed corresponding exercises in left UE without dumbbell due to IV placement. Pt. tolerated these exercises well to increase overall UE strength for daily tasks. Education OT Patient Education: Correct positioning, Exercise program, Progress toward Goal/Update tx plan, Purpose of tx/functional activities, Reviewed precautions, Rehab process, Transfer techniques Teaching Recipient: Patient Teaching Methods: Demonstration, Discussion Response to Teaching: Verbalize Understanding, Return Demonstration OT Short Term Goals Short Term Goals Time Frame: Aug 31, 2017 Eating(FIM): 5 Grooming(FIM): 5 Bathing(FIM): 5 Upper Body Dressing(FIM): 5 Lower Body Dressing(FIM): 5 Toileting(FIM): 5 Transfers (B,C,W/C) (FIM): 5 Toilet/Commode Transfer(FIM): 5 Shower Transfer(FIM): 5 Additional Short Term Goals: 1-Demonstrate ADL Tasks, 2-Verbalize Understanding , 3-ImproveStrength/Dorothy 1=Demonstrate adherence to instructed precautions during ADL tasks. 2=Patient will verbalize/demonstrate understanding of assistive devices/ modifications for ADL. 3=Patient will improve strength/tolerance for activity to enable patient to perform ADL's. OT Repairer Pump Goals Skilled Nursing Goals Time Frame: Sep 07, 2017 Eating (FIM): 6 Eating (QC): 6 Groomin Oral Hygiene (QC): 6 Bathing(FIM): 5 Shower/Bathe Self (QC): 5 Upper Body Dressing(FIM): 6 Upper Body Dressing (QC): 6 Lower Body Dressing(FIM): 6 Lower Body Dressing (QC): 6 On/Off Footwear (QC): 6 Toileting(FIM): 6 Toileting Hygiene (QC): 6 Transfers (B,C,W/C) (FIM): 6 Toilet/Commode Transfer(FIM): 6 Toilet/Commode Transfer (QC): 6 Shower Transfer(FIM): 5 Comprehension(FIM): 6 (MET) Expression (FIM): 5 (MET) Social Interaction(FIM): 6 (MT) Problem Solving(FIM): 6 (MET) Memory(FIM): 5 (MET) 1=Demonstrate adherence to instructed precautions during ADL tasks. 2=Patient will verbalize/demonstrate understanding of assistive devices/ modifications for ADL. 3=Patient will improve strength/tolerance for activity to enable patient to perform ADL's. OT Education/Plan Problem List/Assessment Assessment: Decreased Activ Tolerance, Impaired I ADL's Discharge Recommendations Plan/Recommendations: Continue POC Therapy D/C Recommendations: Home w/ Family Support, Occupational Therapy Home Care Treatment Plan/Plan of Care Treatment,Training & Education: Yes Patient would benefit from OT for education, treatment and training to promote independence in ADL's, mobility, safety and/or upper extremity function for ADL' s. Plan of Care: ADL Retraining, Functional Mobility, Group Exercise/Act as Ind, UE Funct Exercise/Act Treatment Duration: Sep 07, 2017 Frequency: At least 5 of 7 days/Wk (IRF) Estimated Hrs Per Day: 1.5 hours per day Agreement: Yes Rehab Potential: Good Time/GCodes Start Time: 13:40 Stop Time: 14:10 Total Time Billed (hr/min): 30 Billed Treatment Time 1, EX x 2 TAHIR MARTINEZ OT Aug 30, 2017 15:00
--- NOTE | 2017-08-30 16:12 | Physical Therapy Daily Note ---
PT Daily Note-Current Subjective Pt sitting in recliner visiting with Mother upon arrival. Pt agrees to PT. Pain Numeric Pain Scale: 0-No Pain Location: No Pain Reported Mental Status Patient Orientation: Person, Place, Situation Transfers Functional [place] Measure 0=Not Assessed/NA 4=Minimal Assistance 1=Total Assistance 5=Supervision or Setup 2=Maximal Assistance 6=Modified [place] 3=Moderate Assistance 7=Complete IndependenceIRFPAI Quality Coding Scale 6 Independent with activity with or without an assistive device 5 Patient requires set up or clean up by helper. Patient completes activity by themselves 4 Supervision or touching assist (CGA). [place] provide cues , steadying assist 3 The helper provides less than half the effort to complete the activity 2 The helper provides more than half the effort to complete the activity 1 Dependent. The helper does all the effort to complete an activity 7 Patient refused to complete or attempt activity 9 The patient did not perform the activity before the current illness or injury 88 Not attempted due to Medical conditions or safety concerns Scootin Rollin Roll Left to Right (QC): 6 Supine to/from Sit: 6 Sit to/from Stand: 6 Sit to Lying (QC): 6 Sit to Stand (QC): 6 Weight Bearing Right Lower Extremity: Right Full Weight Bearing Left Lower Extremity: Left Full Weight Bearing Gait Training Does the Patient Walk?: Yes Distance (FIM): 9=025-44 ft Distance: 50' Walk 10 feet (QC): 6 Walk 50 ft with 2 Turns(QC): 6 Gait Level of Assist: 6 Gait Persons Needed: 1 Gait Assistive Device: None Pt walks independently with occasionally steadying on nearby objects. Wheelchair Training Does the Pt Use a Wheelchair?: No Treatments Pt transfers from recliner to standing w/o AD at Mod I. Pt uses restroom then wants to return to bed to rest. Pt was concerned about getting Pneumonia from laying too much. SHIP SUPERINTENDENT discussed this with pt and pt then wanted to lay at end of tx with all needs met. Pt transfers Mod I. Assessment Current Status: Good Progress Pt is occasionally confused and needs steadying on nearby objects during ambulation. PT Short Term Goals Short Term Goals Time Frame: Aug 31, 2017 Transfers (B,C,W/C) (FIM): 5 Gait (FIM): 5 Gait Distance Comment: 200 feet Gait Level of Assist: 5 Gait Assistive Device: FWW PT Nursing Home Goals Nursing Home Goals PT Nursing Home Goals Time Frame: Sep 14, 2017 Transfers (B,C,W/C) (FIM): 6 Sit to Lying (QC): 6 Lying-Sitting on Side/Bed(QC): 6 Sit to Stand (QC): 6 Rollin Roll Left to Right (QC): 6 Chair/Yjc-xw-Bhppj Xfer(QC): 6 Car Transfer (QC): 6 Does the Patient Walk: Yes Gait (FIM): 6 Distance: 150 feet Walk 10 feet (QC): 6 Walk 10ft-Uneven Surface(QC): 6 Walk 50ft with 2 Turns (QC): 6 Walk 150 ft (QC): 6 Gait Level of Assist: 6 Gait Assistive Device: FWW Does the Pt use WC or Scooter?: No Stairs (FIM): 5 # of Steps: 12 1 Step (curb) (QC): 4 4 Steps (QC): 4 12 Steps (QC): 4 Stairs Level Of Assist: 5 Picking up an Object (QC): 5 PT Plan Problem List Problem List: Activity Tolerance, Safety Treatment/Plan Treatment Plan: Continue Plan of Care Treatment Plan: Bed Mobility, Education, Functional Activity [place], Functional Strength, Group Therapy, Gait, Safety, Therapeutic Exercise, Transfers Treatment Duration: Sep 14, 2017 Frequency: At least 5 of 7 days/Wk (IRF) Estimated Hrs Per Day: 1.5 hours per day Patient and/or Family Agrees t: Yes Safety Risks/Education Patient Education: Gait Training, Transfer Techniques, Correct Positioning, Disease Process, Safety Issues Teaching Recipient: Patient Teaching Methods: Discussion Response to Teaching: Verbalize Understanding Time/GCodes Time In: 1400 Time Out: 1430 Total Billed Treatment Time: 30 Total Billed Treatment 1, FA x2 (30m) DRAIAN DILL PTA Aug 30, 2017 16:12
[2017-08-30 17:59] VITALS: BP 107/68
[2017-08-30] MEDS: ACETAMINOPHEN 325 MG TABLET/CAPLET (TYLENOL) PO PRN (18:12)
[2017-08-30] MEDS: LOTEPREDNOL OPTH OU SCH (20:44)
[2017-08-30] MEDS: GABAPENTIN 600 MG (NEURONTIN) TAB PO SCH (20:45)
[2017-08-30] MEDS: LIDODERM PATCH REMOVAL TP SCH (20:50)
[2017-08-31] MEDS: VANCOMYCIN ORAL 250 MG/5 ML 60 ML PO SCH ×8 (00:31→18:28)
[2017-08-31 05:46] VITALS: BP 97/65
[2017-08-31] MEDS: CALCIUM CARBONATE 600 MG (CALCARB) TAB PO SCH (06:24)
[2017-08-31] MEDS: MULTIVIT W/MINERALS TAB (THERAGRAN M) PO SCH (06:24)
[2017-08-31] MEDS: PIPERACILLIN SODIUM/TAZOBACTAM 4.5 GM in NS (IVPB) 100 ML IV SCH ×3 (06:45→21:51)
[2017-08-31 06:53] LABS: HEMOGLOBIN 9.8 G/DL (11.5-16.0); MEAN PLATELET VOLUME 9.5 FL (7.4-10.4); RED BLOOD COUNT 3.27 10^6/uL (4.35-5.85); RED CELL DISTRIBUTION WIDTH 15.6 % (10.0-14.5); WHITE BLOOD COUNT 17.5 10^3/uL (4.3-11.0)
--- NOTE | 2017-08-31 08:31 | Progress Note (SOAP) ---
Subjective Time Seen by Provider: 08:30 Subjective/Events-last exam Patient feeling better. White blood cell count improving. C. difficile positive. Lactic acid normal. Objective Exam Vital Signs Date Time Temp Pulse Resp B/P (MAP) Pulse Ox O2 Delivery O2 Flow Rate FiO2 08/31/17 05:46 98.1 89 18 97/65 (76) 98 Room Air 08/30/17 20:45 Room Air 08/30/17 17:59 97.7 100 16 107/68 (81) 94 Room Air 08/30/17 09:00 Room Air I & O 08/31/17 07:00 Intake Total 1750 ml Balance 1750 ml Capillary Refill : General Appearance: No Apparent Distress, Thin HEENT: Normal ENT Inspection Neck: Normal Inspection Respiratory: Chest Non Tender, Normal Breath Sounds, No Accessory Muscle Use, No Respiratory Distress Results Lab Laboratory Tests 08/31/17 06:35: White Blood Count 17.5H, Red Blood Count 3.27L, Hemoglobin 9.8L, Hematocrit 30L , Mean Corpuscular Volume 92, Mean Corpuscular Hemoglobin 30, Mean Corpuscular Hemoglobin Concent 33, Red Cell Distribution Width 15.6H, Platelet Count 497H, Mean Platelet Volume 9.5 Microbiology 08/29/17 Blood Culture - Preliminary, Resulted No growth 08/30/17 C. difficile GDH Antigen & Toxins - Final, Complete Assessment/Plan Assessment/Plan Assess & Plan/Chief Complaint Brain mass. History of breast cancer. Stem cell transplant. To find out path report from . . Brain tumor meningioma. History of breast cancer. Stem cell transplant. Patient had some pain in the right side of face. To monitor. . 08/26/17. Brain tumor meningioma. Patient happy today Breast cancer history stem cell transplant history. . 08/29/17. Brain tumor meningioma. Breast cancer history. Stem cell transplant history. Patient has been constipated. Patient doing okay today except having pain in the rectum. . At least we are 12/12. Benign brain tumor. Meningioma. Breast cancer history. Stem cell transplant history. Patient has a bowel movement. Patient feeling better today. Leukocytosis. . 08/31/17. Benign brain tumor. Meningioma. Breast cancer history. Patient feeling better today. C. difficile positive. White blood cell count coming down Clinical Quality Measures DVT/VTE Risk/Contraindication: Risk Factor Score Per Nursin RFS Level Per Nursing on Admit: 4+=Very High JANIE MATHIS DO Aug 31, 2017 08:31
[2017-08-31] MEDS: ASPIRIN E.C. 81 MG (ECOTRIN) TAB PO SCH (08:45)
[2017-08-31] MEDS: LEVETIRACETAM 500 MG (KEPPRA) TAB PO SCH ×2 (08:45→21:19)
[2017-08-31] MEDS: METHOCARBAMOL 500 MG (ROBAXIN) TABLET PO SCH ×2 (08:45→21:19)
[2017-08-31] MEDS: VITAMIN D3 1,000 UNITS (CHOLECALCIFEROL) TABLET PO SCH (08:47)
[2017-08-31] MEDS: fluCOnazole (DIFLUCAN) 100 MG TAB PO SCH (08:47)
[2017-08-31] MEDS: LIDOCAINE (LIDODERM) 5% PATCH TOP SCH (08:48)
[2017-08-31] MEDS: DOCUSATE SODIUM 100 MG (COLACE) CAP PO SCH ×2 (08:48→21:19)
[2017-08-31] MEDS: prednisoLONE 1% OPTH (PRED FORTE) 5 ML BTL OU SCH ×2 (08:49→21:20)
--- NOTE | 2017-08-31 09:39 | PM & R (SOAP) Progress Note ---
Subjective Time Seen by Provider: 08:15 Subjective/Events-last exam Patient was seen in her room this AM Patient with contact precautions as patient has CDIF Bowel colitis Patient responding well to PO Vancomycin Discussed with DR ramsay.Saul removed from crani site healing well.Patient Modified Independent for transfers Review of Systems Gastrointestinal: Other (loose stools) Objective Exam Last Set of Vital Signs Vital Signs Date Time Temp Pulse Resp B/P (MAP) Pulse Ox O2 Delivery O2 Flow Rate FiO2 08/31/17 05:46 98.1 89 18 97/65 (76) 98 Room Air Capillary Refill : I&O Intake and Output 08/31/17 00:00 Intake Total 4050 ml Balance 4050 ml Intake Oral 1300 ml IV Total 2750 ml # Voids 10 # Bowel Movements 6 General: Alert, Oriented X3, Cooperative, No Acute Distress, Other (crani site healing well) HEENT: Atraumatic, PERRLA, EOMI, Mucous Memb Moist/[place], Other (as per above) Neck: Supple, No JVD Lungs: Clear to Auscultation Heart: Regular Rate Abdomen: Normal Bowel Sounds, Soft Extremities: No Edema Skin: Other (crani site healing well) Neuro: Sensation Intact, Other (Mild STM loss Strength 3+/5 BUES 4+/5 BLES) Results Lab Laboratory Tests 08/29/17 12:19: White Blood Count 32.6*H, Red Blood Count 3.87L, Hemoglobin 11.6, Hematocrit 35 , Mean Corpuscular Volume 90, Mean Corpuscular Hemoglobin 30, Mean Corpuscular Hemoglobin Concent 33, Red Cell Distribution Width 15.0H, Platelet Count 529H, Mean Platelet Volume 9.5, Neutrophils (%) (Auto) 86H, Lymphocytes (%) (Auto) 9L , Monocytes (%) (Auto) 5, Eosinophils (%) (Auto) 0, Basophils (%) (Auto) 0, Neutrophils # (Auto) 28.0H, Lymphocytes # (Auto) 2.8, Monocytes # (Auto) 1.7H, Eosinophils # (Auto) 0.0, Basophils # (Auto) 0.0, Neutrophils % (Manual) 79, Lymphocytes % (Manual) 8, Monocytes % (Manual) 7, Eosinophils % (Manual) 0, Basophils % (Manual) 0, Band Neutrophils 6, Toxic Granulation 1+, Target Cells SLIGHT, Sodium Level 133L, Potassium Level 4.7, Chloride Level 98, Carbon Dioxide Level 25, Anion Gap 10, Blood Urea Nitrogen 16, Creatinine 0.96, Estimat Glomerular Filtration Rate 60, BUN/Creatinine Ratio 17, Glucose Level 120H, Calcium Level 9.6, Total Bilirubin 0.6, Aspartate Amino Transf (AST/SGOT) 25, Alanine Aminotransferase (ALT/SGPT) 46, Alkaline Phosphatase 158H, Total Protein 7.5, Albumin 4.2 08/29/17 13:14: Urine Color YELLOW, Urine Clarity CLEAR, Urine pH 6.5, Urine Specific [place] 1.015L, Urine Protein 2+H, Urine Glucose (UA) NEGATIVE, Urine Ketones NEGATIVE, Urine Nitrite NEGATIVE, Urine Bilirubin NEGATIVE, Urine Urobilinogen NORMAL, Urine Leukocyte Esterase 1+H, Urine RBC (Auto) NEGATIVE, Urine RBC NONE, Urine WBC 2-5, Urine Squamous Epithelial Cells 2-5, Urine Crystals NONE, Urine Bacteria NEGATIVE, Urine Casts NONE, Urine Mucus NEGATIVE, Urine Culture Indicated NO 08/29/17 15:03: Lactic Acid Level 2.64*H 08/29/17 17:47: Lactic Acid Level 2.41*H 08/29/17 21:19: Lactic Acid Level 2.88*H 08/30/17 00:35: Lactic Acid Level 1.48, White Blood Count 27.3H, Red Blood Count 3.19L, Hemoglobin 9.4L, Hematocrit 29L, Mean Corpuscular Volume 90, Mean Corpuscular Hemoglobin 30, Mean Corpuscular Hemoglobin Concent 33, Red Cell Distribution Width 15.0H, Platelet Count 463H, Mean Platelet Volume 9.6 08/30/17 06:14: White Blood Count 25.7H, Red Blood Count 3.21L, Hemoglobin 9.7L, Hematocrit 29L , Mean Corpuscular Volume 91, Mean Corpuscular Hemoglobin 30, Mean Corpuscular Hemoglobin Concent 33, Red Cell Distribution Width 15.3H, Platelet Count 448H, Mean Platelet Volume 9.6, Neutrophils (%) (Auto) 75, Lymphocytes (%) (Auto) 15, Monocytes (%) (Auto) 9, Eosinophils (%) (Auto) 1, Basophils (%) (Auto) 0, Neutrophils # (Auto) 19.3H, Lymphocytes # (Auto) 3.9, Monocytes # (Auto) 2.3H, Eosinophils # (Auto) 0.2, Basophils # (Auto) 0.1, Neutrophils % (Manual) 76, Lymphocytes % (Manual) 19, Monocytes % (Manual) 2, Eosinophils % (Manual) 2, Basophils % (Manual) 0, Band Neutrophils 0, Reactive Lymphocytes 1, Poikilocytosis SLIGHT, Anisocytosis SLIGHT, Target Cells SLIGHT, Sodium Level 138, Potassium Level 4.8, Chloride Level 107, Carbon Dioxide Level 20L, Anion Gap 11, Blood Urea Nitrogen 13, Creatinine 0.84, Estimat Glomerular Filtration Rate > 60, BUN/Creatinine Ratio 15, Glucose Level 97, Calcium Level 8.6, Total Bilirubin 0.7, Aspartate Amino Transf (AST/SGOT) 35H, Alanine Aminotransferase ( ALT/SGPT) 49, Alkaline Phosphatase 121, Total Protein 5.8L, Albumin 3.2 08/31/17 06:35: White Blood Count 17.5H, Red Blood Count 3.27L, Hemoglobin 9.8L, Hematocrit 30L , Mean Corpuscular Volume 92, Mean Corpuscular Hemoglobin 30, Mean Corpuscular Hemoglobin Concent 33, Red Cell Distribution Width 15.6H, Platelet Count 497H, Mean Platelet Volume 9.5 Microbiology 08/29/17 Blood Culture - Preliminary, Resulted No growth 08/30/17 C. difficile GDH Antigen & Toxins - Final, Complete Assessment/Plan Assessment S/P Crani and excision rt temtpral Meningioma Post op Headaches Post op anemia Post op seizure prophylaxis on Keppra Post op DVT Prophylaxis on Heparin SQ HX of Breast CA Postop constipation treated C DIF Bowel colitis improving with RX associated with Postop leukocytosis with low grade fever as well as elevated Lactic acid. RT Facial numbness-improving Plan Continue PT/OT/ST F/U with DR Ramsay prn D/C crani saul-done Trend labs and continue antibiotics Team Conference to be held later today -See report for full functional update and POC and JANNETH PLAZA MD Aug 31, 2017 09:39
--- NOTE | 2017-08-31 12:39 | Physical Therapy Daily Note ---
PT Daily Note-Current Subjective Pt sitting in recliner upon arrival. Pt agrees to PT. Pain Location Body Site: Face Pain Description: Numbness Comment: Pt reports continued numb feeling along R chin line. Mental Status Patient Orientation: Person, Place, Time, Situation Transfers Functional [place] Measure 0=Not Assessed/NA 4=Minimal Assistance 1=Total Assistance 5=Supervision or Setup 2=Maximal Assistance 6=Modified [place] 3=Moderate Assistance 7=Complete IndependenceIRFPAI Quality Coding Scale 6 Independent with activity with or without an assistive device 5 Patient requires set up or clean up by helper. Patient completes activity by themselves 4 Supervision or touching assist (CGA). Check provide cues , steadying assist 3 The helper provides less than half the effort to complete the activity 2 The helper provides more than half the effort to complete the activity 1 Dependent. The helper does all the effort to complete an activity 7 Patient refused to complete or attempt activity 9 The patient did not perform the activity before the current illness or injury 88 Not attempted due to Medical conditions or safety concerns Scootin Sit to/from Stand: 5 Sit to Lying (QC): 6 Sit to Stand (QC): 5 Weight Bearing Right Lower Extremity: Right Full Weight Bearing Left Lower Extremity: Left Full Weight Bearing Gait Training Does the Patient Walk?: Yes Distance (FIM): 4=235-81 ft Distance: 100' Walk 10 feet (QC): 5 Walk 50 ft with 2 Turns(QC): 5 Gait Level of Assist: 5 Gait Persons Needed: 1 Gait Assistive Device: None Pt is walking with normalized gait but occasionally will steady herself on objects nearby. Wheelchair Training Does the Pt Use a Wheelchair?: No Exercises Seated Therapy Exercises: Ankle pumps, Long arc quads, Hip flexion, Kicking activity, Hip abd/add Seated Reps: 15 Treatments Pt completes Seated Ex in recliner. Pt ambulates in room w/o AD at SBA. Pt can independently toilet self. Pt resting in recliner at end of tx eating lunch with all needs met. Assessment Current Status: Good Progress Pt has improved with safety and independence of transfers and ambulation. PT Short Term Goals Short Term Goals Time Frame: Aug 31, 2017 Transfers (B,C,W/C) (FIM): 5 Gait (FIM): 5 Gait Distance Comment: 200 feet Gait Level of Assist: 5 Gait Assistive Device: FWW PT Usp Goals Theatrical Variety Agent Goals PT Usp Goals Time Frame: Sep 14, 2017 Transfers (B,C,W/C) (FIM): 6 Sit to Lying (QC): 6 Lying-Sitting on Side/Bed(QC): 6 Sit to Stand (QC): 6 Rollin Roll Left to Right (QC): 6 Chair/Vcb-xa-Mmles Xfer(QC): 6 Car Transfer (QC): 6 Does the Patient Walk: Yes Gait (FIM): 6 Distance: 150 feet Walk 10 feet (QC): 6 Walk 10ft-Uneven Surface(QC): 6 Walk 50ft with 2 Turns (QC): 6 Walk 150 ft (QC): 6 Gait Level of Assist: 6 Gait Assistive Device: FWW Does the Pt use WC or Scooter?: No Stairs (FIM): 5 # of Steps: 12 1 Step (curb) (QC): 4 4 Steps (QC): 4 12 Steps (QC): 4 Stairs Level Of Assist: 5 Picking up an Object (QC): 5 PT Plan Problem List Problem List: Activity Tolerance Treatment/Plan Treatment Plan: Continue Plan of Care Treatment Plan: Bed Mobility, Education, Functional Activity Dorothy, Functional Strength, Group Therapy, Gait, Safety, Therapeutic Exercise, Transfers Treatment Duration: Sep 14, 2017 Frequency: At least 5 of 7 days/Wk (IRF) Estimated Hrs Per Day: 1.5 hours per day Patient and/or Family Agrees t: Yes Safety Risks/Education Patient Education: Gait Training, Correct Positioning, Safety Issues Teaching Recipient: Patient Teaching Methods: Discussion Response to Teaching: Verbalize Understanding Time/GCodes Time In: 1145 Time Out: 1230 Total Billed Treatment Time: 45 Total Billed Treatment 1, FA (20m) & EX x2 (25m) DARIAN DILL PTA Aug 31, 2017 12:39
--- NOTE | 2017-08-31 13:26 | Occupational Ther Daily Note ---
OT Current Status-Daily Note Subjective No pain reported. Appearance Pt. in bed. Agrees to shower. Mental Status/Objective Patient Orientation: Person, Place Functional [place] Measure 0=Not Assessed/NA 4=Minimal Assistance 1=Total Assistance 5=Supervision or Setup 2=Maximal Assistance 6=Modified [place] 3=Moderate Assistance 7=Complete [place] Attachments: IV ADL-Treatment Functional [place] Measure 0=Not Assessed/NA 4=Minimal Assistance 1=Total Assistance 5=Supervision or Setup 2=Maximal Assistance 6=Modified [place] 3=Moderate Assistance 7=Complete IndependenceIRFPAI Quality Coding Scale 6 Independent with activity with or without an assistive device 5 Patient requires set up or clean up by helper. Patient completes activity by themselves 4 Supervision or touching assist (CGA). Sebastian provide cues , steadying assist 3 The helper provides less than half the effort to complete the activity 2 The helper provides more than half the effort to complete the activity 1 Dependent. The helper does all the effort to complete an activity 7 Patient refused to complete or attempt activity 9 The patient did not perform the activity before the current illness or injury 88 Not attempted due to Medical conditions or safety concerns Grooming (FIM): 7 Oral Hygiene (QC): 6 Bathing (FIM): 6 (Pt. able to fully bathe self in shower with use of shower chair.) Shower/Bathe Self (QC): 6 Upper Body (FIM): 7 Upper Body Dressing (QC): 6 Lower Body Dressing (FIM): 6 Lower Body Dressing (QC): 6 On/Off Footwear (QC): 6 Toileting (FIM): 6 Toileting Hygiene (QC): 6 Transfers (B, C, W/C) (FIM): 7 Toilet/Commode Transfer (FIM): 7 Toilet Transfer (QC): 6 Shower Transfer(FIM): 6 Other Treatment After ADLs, pt. completed bilateral UE exercises. Pt. used a 3 lb. dumbbell in right UE x 5 exercises x 15 reps. Pt. completed corresponding exercises in left hand without weight due to placement of IV in her hand. Pt. then participated in cognitive task with naming/grouping. Tolerated this well. OT and pt. talked about different things that she could do to keep her mind active , and good nutrition for healing and brain involvement. Pt. verbalized understanding of these suggestions. All needs met in room. Education OT Patient Education: Correct positioning, Modified ADL techniques, Progress toward Goal/Update tx plan, Purpose of tx/functional activities, Reviewed precautions, Rehab process, Transfer techniques Teaching Recipient: Patient Teaching Methods: Demonstration, Discussion Response to Teaching: Verbalize Understanding, Return Demonstration OT Short Term Goals Short Term Goals Time Frame: Aug 31, 2017 Eating(FIM): 5 Grooming(FIM): 5 Bathing(FIM): 5 Upper Body Dressing(FIM): 5 Lower Body Dressing(FIM): 5 Toileting(FIM): 5 Transfers (B,C,W/C) (FIM): 5 Toilet/Commode Transfer(FIM): 5 Shower Transfer(FIM): 5 Additional Short Term Goals: 1-Demonstrate ADL Tasks, 2-Verbalize Understanding , 3-ImproveStrength/Dorothy 1=Demonstrate adherence to instructed precautions during ADL tasks. 2=Patient will verbalize/demonstrate understanding of assistive devices/ modifications for ADL. 3=Patient will improve strength/tolerance for activity to enable patient to perform ADL's. OT [place] Buffer Goals Chcf Goals Time Frame: Sep 07, 2017 Eating (FIM): 6 Eating (QC): 6 Groomin Oral Hygiene (QC): 6 Bathing(FIM): 5 Shower/Bathe Self (QC): 5 Upper Body Dressing(FIM): 6 Upper Body Dressing (QC): 6 Lower Body Dressing(FIM): 6 Lower Body Dressing (QC): 6 On/Off Footwear (QC): 6 Toileting(FIM): 6 Toileting Hygiene (QC): 6 Transfers (B,C,W/C) (FIM): 6 Toilet/Commode Transfer(FIM): 6 Toilet/Commode Transfer (QC): 6 Shower Transfer(FIM): 5 Comprehension(FIM): 6 (MET) Expression (FIM): 5 (MET) Social Interaction(FIM): 6 (MT) Problem Solving(FIM): 6 (MET) Memory(FIM): 5 (MET) 1=Demonstrate adherence to instructed precautions during ADL tasks. 2=Patient will verbalize/demonstrate understanding of assistive devices/ modifications for ADL. 3=Patient will improve strength/tolerance for activity to enable patient to perform ADL's. OT Education/Plan Problem List/Assessment Assessment: Decreased Activ Tolerance Discharge Recommendations Plan/Recommendations: Continue POC Therapy D/C Recommendations: Home w/ Family Support Treatment Plan/Plan of Care Treatment,Training & Education: Yes Patient would benefit from OT for education, treatment and training to promote independence in ADL's, mobility, safety and/or upper extremity function for ADL' s. Plan of Care: ADL Retraining, Functional Mobility, Group Exercise/Act as Ind, UE Funct Exercise/Act Treatment Duration: Sep 07, 2017 Frequency: At least 5 of 7 days/Wk (IRF) Estimated Hrs Per Day: 1.5 hours per day Agreement: Yes Rehab Potential: Good Time/GCodes Start Time: 09:30 Stop Time: 11:00 Total Time Billed (hr/min): 90 Billed Treatment Time 1, ADL x 45minutes, EX x 15minutes, FA x 30minutes TAHIR MARTINEZ OT Aug 31, 2017 13:26
--- NOTE | 2017-08-31 16:07 | Physical Therapy Daily Note ---
PT Daily Note-Current Subjective Pt laying Supine in bed upon arrival. Pt agrees to PT. Nurse administering IV , Sp is present in room. Pain Numeric Pain Scale: 0-No Pain Location: No Pain Reported Mental Status Patient Orientation: Person, Place, Time, Situation Attachments: IV Transfers Functional [place] Measure 0=Not Assessed/NA 4=Minimal Assistance 1=Total Assistance 5=Supervision or Setup 2=Maximal Assistance 6=Modified [place] 3=Moderate Assistance 7=Complete IndependenceIRFPAI Quality Coding Scale 6 Independent with activity with or without an assistive device 5 Patient requires set up or clean up by helper. Patient completes activity by themselves 4 Supervision or touching assist (CGA). [place] provide cues , steadying assist 3 The helper provides less than half the effort to complete the activity 2 The helper provides more than half the effort to complete the activity 1 Dependent. The helper does all the effort to complete an activity 7 Patient refused to complete or attempt activity 9 The patient did not perform the activity before the current illness or injury 88 Not attempted due to Medical conditions or safety concerns Scootin Rollin Roll Left to Right (QC): 6 Supine to/from Sit: 6 Sit to/from Stand: 6 Sit to Lying (QC): 6 Sit to Stand (QC): 6 Weight Bearing Right Lower Extremity: Right Full Weight Bearing Left Lower Extremity: Left Full Weight Bearing Gait Training Does the Patient Walk?: Yes Distance (FIM): 2=348-68 ft Distance: 50' Walk 10 feet (QC): 6 Walk 50 ft with 2 Turns(QC): 6 Gait Level of Assist: 6 Gait Persons Needed: 1 Gait Assistive Device: None Pt walks with normalized gait. Wheelchair Training Does the Pt Use a Wheelchair?: No Exercises Supine Ex: Ankle pumps, Quad Set, Glut sets, Heel Slides, Straight leg raise, Hip abd/add Supine Reps: 20 Treatments Pt completes Supine Ex in bed with a couple short rest breaks. Pt then transfers to standing and ambulates to restroom then returns to rest in bed at end of tx with all needs met. Assessment Current Status: Good Progress Pt has improved with strength, balance and endurance. PT Short Term Goals Short Term Goals Time Frame: Aug 31, 2017 Transfers (B,C,W/C) (FIM): 5 Gait (FIM): 5 Gait Distance Comment: 200 feet Gait Level of Assist: 5 Gait Assistive Device: FWW PT Alf Goals Alf Goals PT Alf Goals Time Frame: Sep 14, 2017 Transfers (B,C,W/C) (FIM): 6 Sit to Lying (QC): 6 Lying-Sitting on Side/Bed(QC): 6 Sit to Stand (QC): 6 Rollin Roll Left to Right (QC): 6 Chair/Kdg-wp-Rbmac Xfer(QC): 6 Car Transfer (QC): 6 Does the Patient Walk: Yes Gait (FIM): 6 Distance: 150 feet Walk 10 feet (QC): 6 Walk 10ft-Uneven Surface(QC): 6 Walk 50ft with 2 Turns (QC): 6 Walk 150 ft (QC): 6 Gait Level of Assist: 6 Gait Assistive Device: FWW Does the Pt use WC or Scooter?: No Stairs (FIM): 5 # of Steps: 12 1 Step (curb) (QC): 4 4 Steps (QC): 4 12 Steps (QC): 4 Stairs Level Of Assist: 5 Picking up an Object (QC): 5 PT Plan Problem List Problem List: Activity Tolerance Treatment/Plan Treatment Plan: Continue Plan of Care Treatment Plan: Bed Mobility, Education, Functional Activity Dorothy, Functional Strength, Group Therapy, Gait, Safety, Therapeutic Exercise, Transfers Treatment Duration: Sep 14, 2017 Frequency: At least 5 of 7 days/Wk (IRF) Estimated Hrs Per Day: 1.5 hours per day Patient and/or Family Agrees t: Yes Safety Risks/Education Patient Education: Correct Positioning, Safety Issues Teaching Recipient: Patient, Significant Other Teaching Methods: Discussion Response to Teaching: Verbalize Understanding Time/GCodes Time In: 1435 Time Out: 1520 Total Billed Treatment Time: 45 Total Billed Treatment 1, FA (15m) & EX x2 (30m) DARIAN DILL PTA Aug 31, 2017 16:06
[2017-08-31 18:25] VITALS: BP 101/67
[2017-08-31] MEDS: GABAPENTIN 600 MG (NEURONTIN) TAB PO SCH (21:19)
[2017-08-31] MEDS: LOTEPREDNOL OPTH OU SCH (21:20)
[2017-08-31] MEDS: LIDODERM PATCH REMOVAL TP SCH (21:26)
[2017-09-01] MEDS: VANCOMYCIN ORAL 250 MG/5 ML 60 ML PO SCH ×8 (00:16→17:17)
[2017-09-01 05:04] VITALS: BP 113/76
[2017-09-01 05:43] LABS: HEMOGLOBIN 9.7 G/DL (11.5-16.0); MEAN PLATELET VOLUME 9.5 FL (7.4-10.4); RED BLOOD COUNT 3.27 10^6/uL (4.35-5.85); RED CELL DISTRIBUTION WIDTH 15.4 % (10.0-14.5)
[2017-09-01] MEDS: MULTIVIT W/MINERALS TAB (THERAGRAN M) PO SCH (06:15)
[2017-09-01] MEDS: CALCIUM CARBONATE 600 MG (CALCARB) TAB PO SCH (06:15)
--- NOTE | 2017-09-01 08:44 | Progress Note (SOAP) ---
Subjective Time Seen by Provider: 08:43 Subjective/Events-last exam Patient feeling better. Patient doing better. Patient be discharged on Tuesday. White blood cell going down now 15,000 Objective Exam Vital Signs Date Time Temp Pulse Resp B/P (MAP) Pulse Ox O2 Delivery O2 Flow Rate FiO2 09/01/17 05:04 98.4 90 18 113/76 (88) 96 Room Air 08/31/17 20:30 Room Air 08/31/17 18:25 97.5 79 16 101/67 (78) 99 Room Air 08/31/17 09:00 Room Air I & O 09/01/17 07:00 Intake Total 1530 ml Balance 1530 ml Capillary Refill : General Appearance: No Apparent Distress, WD/WN Results Lab Laboratory Tests 09/01/17 05:20: White Blood Count 15.0H, Red Blood Count 3.27L, Hemoglobin 9.7L, Hematocrit 30L , Mean Corpuscular Volume 91, Mean Corpuscular Hemoglobin 30, Mean Corpuscular Hemoglobin Concent 33, Red Cell Distribution Width 15.4H, Platelet Count 534H, Mean Platelet Volume 9.5 Microbiology 08/29/17 Blood Culture - Preliminary, Resulted No growth 08/30/17 C. difficile GDH Antigen & Toxins - Final, Complete Assessment/Plan Assessment/Plan Assess & Plan/Chief Complaint Brain mass. History of breast cancer. Stem cell transplant. To find out path report from . . Brain tumor meningioma. History of breast cancer. Stem cell transplant. Patient had some pain in the right side of face. To monitor. . 08/26/17. Brain tumor meningioma. Patient happy today Breast cancer history stem cell transplant history. . 08/29/17. Brain tumor meningioma. Breast cancer history. Stem cell transplant history. Patient has been constipated. Patient doing okay today except having pain in the rectum. . At least we are 12/12. Benign brain tumor. Meningioma. Breast cancer history. Stem cell transplant history. Patient has a bowel movement. Patient feeling better today. Leukocytosis. . 08/31/17. Benign brain tumor. Meningioma. Breast cancer history. Patient feeling better today. C. difficile positive. White blood cell count coming down. . 09/01/17. Benign brain tumor. Meningioma. Breast cancer history. Patient feeling good today. Patient be discharged on Tuesday. White blood cell count better at 15,000 Clinical Quality Measures DVT/VTE Risk/Contraindication: Risk Factor Score Per Nursin RFS Level Per Nursing on Admit: 4+=Very High JANIE MATHIS DO Sep 01, 2017 08:44
[2017-09-01] MEDS: LEVETIRACETAM 500 MG (KEPPRA) TAB PO SCH ×2 (08:53→20:56)
[2017-09-01] MEDS: VITAMIN D3 1,000 UNITS (CHOLECALCIFEROL) TABLET PO SCH (08:54)
[2017-09-01] MEDS: LIDOCAINE (LIDODERM) 5% PATCH TOP SCH (08:54)
[2017-09-01] MEDS: ASPIRIN E.C. 81 MG (ECOTRIN) TAB PO SCH (08:54)
[2017-09-01] MEDS: METHOCARBAMOL 500 MG (ROBAXIN) TABLET PO SCH ×2 (08:54→20:56)
[2017-09-01] MEDS: DOCUSATE SODIUM 100 MG (COLACE) CAP PO SCH ×2 (08:54→20:57)
[2017-09-01] MEDS: prednisoLONE 1% OPTH (PRED FORTE) 5 ML BTL OU SCH ×2 (08:55→20:57)
--- NOTE | 2017-09-01 08:58 | PM & R (SOAP) Progress Note ---
Subjective Time Seen by Provider: 08:00 Subjective/Events-last exam Patient was seen in her room this AM Patient Modified Independent for transfers Tolerating Oral Vanco for treatment of C DIF Bowel colitis well Discussed case with RN Will d/c Subcut Heparin as patient mobile Staleps out crani site and incision site healing well Objective Exam Last Set of Vital Signs Vital Signs Date Time Temp Pulse Resp B/P (MAP) Pulse Ox O2 Delivery O2 Flow Rate FiO2 09/01/17 05:04 98.4 90 18 113/76 (88) 96 Room Air Capillary Refill : I&O Intake and Output 09/01/17 00:00 Intake Total 1380 ml Balance 1380 ml Intake Oral 1180 ml IV Total 200 ml # Voids 5 # Bowel Movements 2 General: Alert, Oriented X3, Cooperative, No Acute Distress, Other (crani site healing well) HEENT: Atraumatic, PERRLA, EOMI, Mucous Memb Moist/[place], Other (as per above) Neck: Supple, No JVD Lungs: Clear to Auscultation Heart: Regular Rate Abdomen: Normal Bowel Sounds, Soft Extremities: No Edema Skin: Other (crani site healing well) Neuro: Sensation Intact, Other (Mild STM loss Strength 3+/5 BUES 4+/5 BLES) Results Lab Laboratory Tests 08/29/17 12:19: White Blood Count 32.6*H, Red Blood Count 3.87L, Hemoglobin 11.6, Hematocrit 35 , Mean Corpuscular Volume 90, Mean Corpuscular Hemoglobin 30, Mean Corpuscular Hemoglobin Concent 33, Red Cell Distribution Width 15.0H, Platelet Count 529H, Mean Platelet Volume 9.5, Neutrophils (%) (Auto) 86H, Lymphocytes (%) (Auto) 9L , Monocytes (%) (Auto) 5, Eosinophils (%) (Auto) 0, Basophils (%) (Auto) 0, Neutrophils # (Auto) 28.0H, Lymphocytes # (Auto) 2.8, Monocytes # (Auto) 1.7H, Eosinophils # (Auto) 0.0, Basophils # (Auto) 0.0, Neutrophils % (Manual) 79, Lymphocytes % (Manual) 8, Monocytes % (Manual) 7, Eosinophils % (Manual) 0, Basophils % (Manual) 0, Band Neutrophils 6, Toxic Granulation 1+, Target Cells SLIGHT, Sodium Level 133L, Potassium Level 4.7, Chloride Level 98, Carbon Dioxide Level 25, Anion Gap 10, Blood Urea Nitrogen 16, Creatinine 0.96, Estimat Glomerular Filtration Rate 60, BUN/Creatinine Ratio 17, Glucose Level 120H, Calcium Level 9.6, Total Bilirubin 0.6, Aspartate Amino Transf (AST/SGOT) 25, Alanine Aminotransferase (ALT/SGPT) 46, Alkaline Phosphatase 158H, Total Protein 7.5, Albumin 4.2 08/29/17 13:14: Urine Color YELLOW, Urine Clarity CLEAR, Urine pH 6.5, Urine Specific [place] 1.015L, Urine Protein 2+H, Urine Glucose (UA) NEGATIVE, Urine Ketones NEGATIVE, Urine Nitrite NEGATIVE, Urine Bilirubin NEGATIVE, Urine Urobilinogen NORMAL, Urine Leukocyte Esterase 1+H, Urine RBC (Auto) NEGATIVE, Urine RBC NONE, Urine WBC 2-5, Urine Squamous Epithelial Cells 2-5, Urine Crystals NONE, Urine Bacteria NEGATIVE, Urine Casts NONE, Urine Mucus NEGATIVE, Urine Culture Indicated NO 08/29/17 15:03: Lactic Acid Level 2.64*H 08/29/17 17:47: Lactic Acid Level 2.41*H 08/29/17 21:19: Lactic Acid Level 2.88*H 08/30/17 00:35: Lactic Acid Level 1.48, White Blood Count 27.3H, Red Blood Count 3.19L, Hemoglobin 9.4L, Hematocrit 29L, Mean Corpuscular Volume 90, Mean Corpuscular Hemoglobin 30, Mean Corpuscular Hemoglobin Concent 33, Red Cell Distribution Width 15.0H, Platelet Count 463H, Mean Platelet Volume 9.6 08/30/17 06:14: White Blood Count 25.7H, Red Blood Count 3.21L, Hemoglobin 9.7L, Hematocrit 29L , Mean Corpuscular Volume 91, Mean Corpuscular Hemoglobin 30, Mean Corpuscular Hemoglobin Concent 33, Red Cell Distribution Width 15.3H, Platelet Count 448H, Mean Platelet Volume 9.6, Neutrophils (%) (Auto) 75, Lymphocytes (%) (Auto) 15, Monocytes (%) (Auto) 9, Eosinophils (%) (Auto) 1, Basophils (%) (Auto) 0, Neutrophils # (Auto) 19.3H, Lymphocytes # (Auto) 3.9, Monocytes # (Auto) 2.3H, Eosinophils # (Auto) 0.2, Basophils # (Auto) 0.1, Neutrophils % (Manual) 76, Lymphocytes % (Manual) 19, Monocytes % (Manual) 2, Eosinophils % (Manual) 2, Basophils % (Manual) 0, Band Neutrophils 0, Reactive Lymphocytes 1, Poikilocytosis SLIGHT, Anisocytosis SLIGHT, Target Cells SLIGHT, Sodium Level 138, Potassium Level 4.8, Chloride Level 107, Carbon Dioxide Level 20L, Anion Gap 11, Blood Urea Nitrogen 13, Creatinine 0.84, Estimat Glomerular Filtration Rate > 60, BUN/Creatinine Ratio 15, Glucose Level 97, Calcium Level 8.6, Total Bilirubin 0.7, Aspartate Amino Transf (AST/SGOT) 35H, Alanine Aminotransferase ( ALT/SGPT) 49, Alkaline Phosphatase 121, Total Protein 5.8L, Albumin 3.2 08/31/17 06:35: White Blood Count 17.5H, Red Blood Count 3.27L, Hemoglobin 9.8L, Hematocrit 30L , Mean Corpuscular Volume 92, Mean Corpuscular Hemoglobin 30, Mean Corpuscular Hemoglobin Concent 33, Red Cell Distribution Width 15.6H, Platelet Count 497H, Mean Platelet Volume 9.5 09/01/17 05:20: White Blood Count 15.0H, Red Blood Count 3.27L, Hemoglobin 9.7L, Hematocrit 30L , Mean Corpuscular Volume 91, Mean Corpuscular Hemoglobin 30, Mean Corpuscular Hemoglobin Concent 33, Red Cell Distribution Width 15.4H, Platelet Count 534H, Mean Platelet Volume 9.5 Microbiology 08/29/17 Blood Culture - Preliminary, Resulted No growth 08/30/17 C. difficile GDH Antigen & Toxins - Final, Complete Assessment/Plan Assessment S/P Crani and excision rt temtpral Meningioma Post op Headaches Post op anemia Post op seizure prophylaxis on Keppra Post op DVT Prophylaxis on Heparin SQ-now d/cd HX of Breast CA Postop constipation treated C DIF Bowel colitis improving with RX associated with Postop leukocytosis with low grade fever as well as elevated Lactic acid.-all improving RT Facial numbness-improving Plan Continue PT/OT F/U with DR Ramsay prn D/C crani saul-done Trend labs and continue antibiotics Team Conference held yesterday -See report for full functional update and POC and ELOS Discharge set for Tuesday09-03-17 D/C Subcut Heparin See orders JANNETH BECKFORD MD Sep 01, 2017 8:58 am
--- NOTE | 2017-09-01 11:09 | Physical Therapy Daily Note ---
PT Daily Note-Current Subjective Pt sitting in recliner on phone upon arrival. Pt agrees to PT and is excited for discharge in a couple of days. Pain Location: Right Location Body Site: Face Pain Description: Numbness Comment: Pt reports numbness/tingling down R side of face from ear to chin. Mental Status Patient Orientation: Person, Place, Time, Situation Transfers Functional [place] Measure 0=Not Assessed/NA 4=Minimal Assistance 1=Total Assistance 5=Supervision or Setup 2=Maximal Assistance 6=Modified [place] 3=Moderate Assistance 7=Complete IndependenceIRFPAI Quality Coding Scale 6 Independent with activity with or without an assistive device 5 Patient requires set up or clean up by helper. Patient completes activity by themselves 4 Supervision or touching assist (CGA). [place] provide cues , steadying assist 3 The helper provides less than half the effort to complete the activity 2 The helper provides more than half the effort to complete the activity 1 Dependent. The helper does all the effort to complete an activity 7 Patient refused to complete or attempt activity 9 The patient did not perform the activity before the current illness or injury 88 Not attempted due to Medical conditions or safety concerns Scootin Rollin Supine to/from Sit: 6 Sit to/from Stand: 6 Sit to Lying (QC): 6 Sit to Stand (QC): 6 Weight Bearing Right Lower Extremity: Right Full Weight Bearing Left Lower Extremity: Left Full Weight Bearing Gait Training Does the Patient Walk?: Yes Distance (FIM): 2=111-65 ft Distance: 100' Walk 10 feet (QC): 6 Walk 50 ft with 2 Turns(QC): 6 Gait Level of Assist: 6 Gait Persons Needed: 1 Gait Assistive Device: None Pt walks with normalized gait. Pt wants to walk outside of room although pt is under Isolation right now. Wheelchair Training Does the Pt Use a Wheelchair?: No Exercises Seated Therapy Exercises: Ankle pumps, Long arc quads, Hip flexion, Kicking activity, Hip abd/add Seated Reps: 20 (2 sets) Treatments Pt transfers from Supine to EOB to Standing w/o AD at Mod I. Pt ambulates in room w/o AD at Mod I. Pt uses restroom during tx. Pt also completes Seated Ex in recliner. Pt resting in recliner at end of tx with all needs met. Assessment Current Status: Good Progress Pt likes to visit during tx and sometimes needs VC to continue on task. PT Short Term Goals Short Term Goals Time Frame: Aug 31, 2017 Transfers (B,C,W/C) (FIM): 5 Gait (FIM): 5 Gait Distance Comment: 200 feet Gait Level of Assist: 5 Gait Assistive Device: FWW PT Assisted Goals Assisted Goals PT Laboratory Technologist Goals Time Frame: Sep 14, 2017 Transfers (B,C,W/C) (FIM): 6 Sit to Lying (QC): 6 Lying-Sitting on Side/Bed(QC): 6 Sit to Stand (QC): 6 Rollin Roll Left to Right (QC): 6 Chair/Zwv-no-Sjsrq Xfer(QC): 6 Car Transfer (QC): 6 Does the Patient Walk: Yes Gait (FIM): 6 Distance: 150 feet Walk 10 feet (QC): 6 Walk 10ft-Uneven Surface(QC): 6 Walk 50ft with 2 Turns (QC): 6 Walk 150 ft (QC): 6 Gait Level of Assist: 6 Gait Assistive Device: FWW Does the Pt use WC or Scooter?: No Stairs (FIM): 5 # of Steps: 12 1 Step (curb) (QC): 4 4 Steps (QC): 4 12 Steps (QC): 4 Stairs Level Of Assist: 5 Picking up an Object (QC): 5 PT Plan Problem List Problem List: Activity Tolerance Treatment/Plan Treatment Plan: Continue Plan of Care Treatment Plan: Bed Mobility, Education, Functional Activity Dorothy, Functional Strength, Group Therapy, Gait, Safety, Therapeutic Exercise, Transfers Treatment Duration: Sep 14, 2017 Frequency: At least 5 of 7 days/Wk (IRF) Estimated Hrs Per Day: 1.5 hours per day Patient and/or Family Agrees t: Yes Safety Risks/Education Patient Education: Correct Positioning, Safety Issues Teaching Recipient: Patient Teaching Methods: Discussion Response to Teaching: Verbalize Understanding Time/GCodes Time In: 800 Time Out: 900 Total Billed Treatment Time: 60 Total Billed Treatment 1, EX (20m) & FA x3 (40m) DARIAN DILL CREDENTIALING ANALYST Sep 01, 2017 11:09
--- NOTE | 2017-09-01 14:52 | Occupational Ther Daily Note ---
OT Current Status-Daily Note Subjective No pain reported. Appearance Pt. is agreeable to treatment. Mental Status/Objective Patient Orientation: Person, Place Functional [place] Measure 0=Not Assessed/NA 4=Minimal Assistance 1=Total Assistance 5=Supervision or Setup 2=Maximal Assistance 6=Modified [place] 3=Moderate Assistance 7=Complete [place] ADL-Treatment Functional [place] Measure 0=Not Assessed/NA 4=Minimal Assistance 1=Total Assistance 5=Supervision or Setup 2=Maximal Assistance 6=Modified [place] 3=Moderate Assistance 7=Complete IndependenceIRFPAI Quality Coding Scale 6 Independent with activity with or without an assistive device 5 Patient requires set up or clean up by helper. Patient completes activity by themselves 4 Supervision or touching assist (CGA). [place] provide cues , steadying assist 3 The helper provides less than half the effort to complete the activity 2 The helper provides more than half the effort to complete the activity 1 Dependent. The helper does all the effort to complete an activity 7 Patient refused to complete or attempt activity 9 The patient did not perform the activity before the current illness or injury 88 Not attempted due to Medical conditions or safety concerns Grooming (FIM): 7 Oral Hygiene (QC): 6 Bathing (FIM): 6 Shower/Bathe Self (QC): 6 Upper Body (FIM): 7 Upper Body Dressing (QC): 6 Lower Body Dressing (FIM): 7 Lower Body Dressing (QC): 6 On/Off Footwear (QC): 6 Toileting (FIM): 7 Toileting Hygiene (QC): 6 Transfers (B, C, W/C) (FIM): 7 Toilet/Commode Transfer (FIM): 7 Toilet Transfer (QC): 6 Shower Transfer(FIM): 6 (Pt. utilized shower chair in shower.) Other Treatment After shower, pt. agreed to cognitive tasks. Pt. completed sequencing, naming, grouping tasks with emphasis to problem solve. Pt. states that she likes to do this, and wonders if she would have had trouble before her surgery. Pt. does well with this, but seems to think that she doesn't do well. Pt. is encouraged. Pt. very loquacious and has to be re-directed at times. Pt. has many questions regarding her diagnosis of C-diff. Pt. is educated on this. Pt. states that she will be discharging on Tuesday. Pt. states that she will be going home with a pill form of antibiotic, and not her IV. Pt. states that she plans to continue completing cognitive tasks at home, such as the information that was completed in this session. All needs met in room. Education OT Patient Education: Correct positioning, Modified ADL techniques, Progress toward Goal/Update tx plan, Purpose of tx/functional activities, Reviewed precautions, Rehab process, Transfer techniques Teaching Recipient: Patient Teaching Methods: Demonstration, Discussion Response to Teaching: Verbalize Understanding, Return Demonstration OT Short Term Goals Short Term Goals Time Frame: Aug 31, 2017 Eating(FIM): 5 Grooming(FIM): 5 Bathing(FIM): 5 Upper Body Dressing(FIM): 5 Lower Body Dressing(FIM): 5 Toileting(FIM): 5 Transfers (B,C,W/C) (FIM): 5 Toilet/Commode Transfer(FIM): 5 Shower Transfer(FIM): 5 Additional Short Term Goals: 1-Demonstrate ADL Tasks, 2-Verbalize Understanding , 3-ImproveStrength/Dorothy 1=Demonstrate adherence to instructed precautions during ADL tasks. 2=Patient will verbalize/demonstrate understanding of assistive devices/ modifications for ADL. 3=Patient will improve strength/tolerance for activity to enable patient to perform ADL's. OT Prison Goals Customer Solutions Coordinator Goals Time Frame: Sep 07, 2017 Eating (FIM): 6 Eating (QC): 6 Groomin Oral Hygiene (QC): 6 Bathing(FIM): 5 Shower/Bathe Self (QC): 5 Upper Body Dressing(FIM): 6 Upper Body Dressing (QC): 6 Lower Body Dressing(FIM): 6 Lower Body Dressing (QC): 6 On/Off Footwear (QC): 6 Toileting(FIM): 6 Toileting Hygiene (QC): 6 Transfers (B,C,W/C) (FIM): 6 Toilet/Commode Transfer(FIM): 6 Toilet/Commode Transfer (QC): 6 Shower Transfer(FIM): 5 Comprehension(FIM): 6 (MET) Expression (FIM): 5 (MET) Social Interaction(FIM): 6 (MT) Problem Solving(FIM): 6 (MET) Memory(FIM): 5 (MET) 1=Demonstrate adherence to instructed precautions during ADL tasks. 2=Patient will verbalize/demonstrate understanding of assistive devices/ modifications for ADL. 3=Patient will improve strength/tolerance for activity to enable patient to perform ADL's. OT Education/Plan Problem List/Assessment Assessment: Decreased Activ Tolerance Discharge Recommendations Plan/Recommendations: Continue POC Therapy D/C Recommendations: Home w/ Family Support Treatment Plan/Plan of Care Treatment,Training & Education: Yes Patient would benefit from OT for education, treatment and training to promote independence in ADL's, mobility, safety and/or upper extremity function for ADL' s. Plan of Care: ADL Retraining, Functional Mobility, Group Exercise/Act as Ind, UE Funct Exercise/Act Treatment Duration: Sep 07, 2017 Frequency: At least 5 of 7 days/Wk (IRF) Estimated Hrs Per Day: 1.5 hours per day Agreement: Yes Rehab Potential: Good Time/GCodes Start Time: 10:00 Stop Time: 11:30 Total Time Billed (hr/min): 90 Billed Treatment Time 1, ADL x 45minutes, FA x 45minutes TAHIR MARTINEZ OT Sep 01, 2017 14:52
[2017-09-01] MEDS: ACETAMINOPHEN 325 MG TABLET/CAPLET (TYLENOL) PO PRN (15:16)
--- NOTE | 2017-09-01 15:59 | Physical Therapy Daily Note ---
PT Daily Note-Current Subjective Pt sitting in recliner upon arrival. Pt agrees to PT but reports needing to use restroom. Transfers Functional [place] Measure 0=Not Assessed/NA 4=Minimal Assistance 1=Total Assistance 5=Supervision or Setup 2=Maximal Assistance 6=Modified [place] 3=Moderate Assistance 7=Complete IndependenceIRFPAI Quality Coding Scale 6 Independent with activity with or without an assistive device 5 Patient requires set up or clean up by helper. Patient completes activity by themselves 4 Supervision or touching assist (CGA). [place] provide cues , steadying assist 3 The helper provides less than half the effort to complete the activity 2 The helper provides more than half the effort to complete the activity 1 Dependent. The helper does all the effort to complete an activity 7 Patient refused to complete or attempt activity 9 The patient did not perform the activity before the current illness or injury 88 Not attempted due to Medical conditions or safety concerns Scootin Rollin Supine to/from Sit: 6 Sit to/from Stand: 6 Sit to Lying (QC): 6 Sit to Stand (QC): 6 Weight Bearing Right Lower Extremity: Right Full Weight Bearing Left Lower Extremity: Left Full Weight Bearing Gait Training Does the Patient Walk?: Yes Distance (FIM): 4=195-52 ft Distance: 50' Walk 10 feet (QC): 6 Walk 50 ft with 2 Turns(QC): 6 Gait Level of Assist: 6 Gait Persons Needed: 1 Gait Assistive Device: None Wheelchair Training Does the Pt Use a Wheelchair?: No Exercises Seated Therapy Exercises: Ankle pumps, Long arc quads, Hip flexion, Kicking activity, Hip abd/add Seated Reps: 15 Treatments Pt completes Seated Ex in recliner then transfers to standing at Mod I w/o AD. Pt uses restroom then transfers back to Supine in bed at Mod I to rest before Mother comes to visit. Pt resting at end of tx with all needs met. Assessment Current Status: Good Progress Pt fatigues at times but continues to push herself to get better. PT Short Term Goals Short Term Goals Time Frame: Aug 31, 2017 Transfers (B,C,W/C) (FIM): 5 Gait (FIM): 5 Gait Distance Comment: 200 feet Gait Level of Assist: 5 Gait Assistive Device: FWW PT Race Steward Goals Detention Goals PT Race Steward Goals Time Frame: Sep 14, 2017 Transfers (B,C,W/C) (FIM): 6 Sit to Lying (QC): 6 Lying-Sitting on Side/Bed(QC): 6 Sit to Stand (QC): 6 Rollin Roll Left to Right (QC): 6 Chair/Qtu-mc-Lbeli Xfer(QC): 6 Car Transfer (QC): 6 Does the Patient Walk: Yes Gait (FIM): 6 Distance: 150 feet Walk 10 feet (QC): 6 Walk 10ft-Uneven Surface(QC): 6 Walk 50ft with 2 Turns (QC): 6 Walk 150 ft (QC): 6 Gait Level of Assist: 6 Gait Assistive Device: FWW Does the Pt use WC or Scooter?: No Stairs (FIM): 5 # of Steps: 12 1 Step (curb) (QC): 4 4 Steps (QC): 4 12 Steps (QC): 4 Stairs Level Of Assist: 5 Picking up an Object (QC): 5 PT Plan Problem List Problem List: Activity Tolerance Treatment/Plan Treatment Plan: Continue Plan of Care Treatment Plan: Bed Mobility, Education, Functional Activity Dorothy, Functional Strength, Group Therapy, Gait, Safety, Therapeutic Exercise, Transfers Treatment Duration: Sep 14, 2017 Frequency: At least 5 of 7 days/Wk (IRF) Estimated Hrs Per Day: 1.5 hours per day Patient and/or Family Agrees t: Yes Safety Risks/Education Patient Education: Correct Positioning, Safety Issues Teaching Recipient: Patient Teaching Methods: Discussion Response to Teaching: Verbalize Understanding Time/GCodes Time In: 1300 Time Out: 1330 Total Billed Treatment Time: 30 Total Billed Treatment 1, FA (15m) & EX (15m) DARIAN DILL PTA Sep 01, 2017 15:59
[2017-09-01 18:00] VITALS: BP 116/75
[2017-09-01] MEDS: GABAPENTIN 600 MG (NEURONTIN) TAB PO SCH (20:56)
[2017-09-01] MEDS: LIDODERM PATCH REMOVAL TP SCH (20:57)
[2017-09-01] MEDS: LOTEPREDNOL OPTH OU SCH (20:57)
[2017-09-02] MEDS: VANCOMYCIN ORAL 250 MG/5 ML 60 ML PO SCH ×10 (00:30→23:59)
[2017-09-02 05:06] VITALS: BP 107/69
[2017-09-02] MEDS: MULTIVIT W/MINERALS TAB (THERAGRAN M) PO SCH (06:05)
[2017-09-02] MEDS: CALCIUM CARBONATE 600 MG (CALCARB) TAB PO SCH (06:05)
[2017-09-02 07:05] LABS: BASOPHILS # (AUTO) 0.1 10^3/uL (0.0-0.1); BASOPHILS % (AUTO) 1 % (0-10); EOSINOPHILS # (AUTO) 0.5 10^3/uL (0.0-0.3); EOSINOPHILS % (AUTO) 5 % (0-10); HEMATOCRIT 31 % (35-52); HEMOGLOBIN 10.4 G/DL (11.5-16.0); LYMPHOCYTES # (AUTO) 2.8 X 10^3 (1.0-4.0); LYMPHOCYTES % (AUTO) 28 % (12-44); MEAN CORPUSCULAR HEMOGLOBIN 30 PG (25-34); MEAN CORPUSCULAR HGB CONC 33 G/DL (32-36); MEAN CORPUSCULAR VOLUME 91 FL (80-99); MEAN PLATELET VOLUME 8.8 FL (7.4-10.4); MONOCYTES # (AUTO) 0.7 X 10^3 (0.0-1.0); MONOCYTES % (AUTO) 7 % (0-12); NEUTROPHILS # (AUTO) 5.9 X 10^3 (1.8-7.8); NEUTROPHILS % (AUTO) 59 % (42-75); PLATELET COUNT 576 10^3/uL (130-400); RED BLOOD COUNT 3.47 10^6/uL (4.35-5.85); RED CELL DISTRIBUTION WIDTH 15.1 % (10.0-14.5)
--- NOTE | 2017-09-02 07:19 | Occupational Ther Daily Note ---
OT Current Status-Daily Note Subjective Pt alert, lying in bed. Pt agreed to therapy. No c/o pain at this time. Pt to discharge 09/03/2017 Mental Status/Objective Patient Orientation: Person, Place, Time, Situation Functional [place] Measure 0=Not Assessed/NA 4=Minimal Assistance 1=Total Assistance 5=Supervision or Setup 2=Maximal Assistance 6=Modified [place] 3=Moderate Assistance 7=Complete [place] ADL-Treatment Functional [place] Measure 0=Not Assessed/NA 4=Minimal Assistance 1=Total Assistance 5=Supervision or Setup 2=Maximal Assistance 6=Modified [place] 3=Moderate Assistance 7=Complete IndependenceIRFPAI Quality Coding Scale 6 Independent with activity with or without an assistive device 5 Patient requires set up or clean up by helper. Patient completes activity by themselves 4 Supervision or touching assist (CGA). [place] provide cues , steadying assist 3 The helper provides less than half the effort to complete the activity 2 The helper provides more than half the effort to complete the activity 1 Dependent. The helper does all the effort to complete an activity 7 Patient refused to complete or attempt activity 9 The patient did not perform the activity before the current illness or injury 88 Not attempted due to Medical conditions or safety concerns Eating (FIM): 7 (Pt able to open packages and containers by self. Uses regular utensils to feed self and cut food.) Eating (QC): 6 Grooming (FIM): 7 (Standing at sink pt is able to complete grooming by self.) Oral Hygiene (QC): 6 Bathing (FIM): 7 (Pt is able to complete bathing by self using shower chair, grabbar and hand held shower.) Bathing Location: L Arm, R Arm, L Upper Leg, R Upper Leg, L Lower Leg ( including foot), R Lower Leg (including foot), Chest, Abdomen, Buttocks, Perineal Area Shower/Bathe Self (QC): 6 Upper Body (FIM): 7 (Pt retrieves clothing and transports to bathroom by self. Dons/doffs upper body clothing on own.) Upper Body Dressing (QC): 6 Lower Body Dressing (FIM): 7 (Pt retrieves clothing and transports to bathroom by self. Dons/doffs lower body clothing on own.) Lower Body Dressing (QC): 6 On/Off Footwear (QC): 6 Toileting (FIM): 7 (Pt is able to manipulate clothing and cleanse self.) Toileting Hygiene (QC): 6 Transfers (B, C, W/C) (FIM): 7 (Pt ambulates without FWW safely, no LOB.) Toilet/Commode Transfer (FIM): 7 (Pt able to complete toilet transfer by self.) Toilet Transfer (QC): 6 Shower Transfer(FIM): 6 (Using shower chair, grabbar and hand held shower pt is able to complete by self.) After therapy, pt sitting in recliner. Call light/phone in reach. All needs met in room. OT Short Term Goals Short Term Goals Time Frame: Aug 31, 2017 Eating(FIM): 5 Grooming(FIM): 5 Bathing(FIM): 5 Upper Body Dressing(FIM): 5 Lower Body Dressing(FIM): 5 Toileting(FIM): 5 Transfers (B,C,W/C) (FIM): 5 Toilet/Commode Transfer(FIM): 5 Shower Transfer(FIM): 5 Additional Short Term Goals: 1-Demonstrate ADL Tasks, 2-Verbalize Understanding , 3-ImproveStrength/Dorothy 1=Demonstrate adherence to instructed precautions during ADL tasks. 2=Patient will verbalize/demonstrate understanding of assistive devices/ modifications for ADL. 3=Patient will improve strength/tolerance for activity to enable patient to perform ADL's. OT Group Home Goals Eco Industrial Development Consultant Goals Time Frame: Sep 07, 2017 Eating (FIM): 6 (met-09/02/2017) Eating (QC): 6 (met-09/02/2017) Groomin (met-09/02/2017) Oral Hygiene (QC): 6 (met-09/02/2017) Bathing(FIM): 5 (met-09/02/2017) Shower/Bathe Self (QC): 5 (met-09/02/2017) Upper Body Dressing(FIM): 6 (met-09/02/2017) Upper Body Dressing (QC): 6 (met-09/02/2017) Lower Body Dressing(FIM): 6 (met-09/02/2017) Lower Body Dressing (QC): 6 (met-09/02/2017) On/Off Footwear (QC): 6 (met-09/02/2017) Toileting(FIM): 6 (met-09/02/2017) Toileting Hygiene (QC): 6 (met-09/02/2017) Transfers (B,C,W/C) (FIM): 6 (met-09/02/2017) Toilet/Commode Transfer(FIM): 6 (met-09/02/2017) Toilet/Commode Transfer (QC): 6 (met-09/02/2017) Shower Transfer(FIM): 5 (met-09/02/2017) Comprehension(FIM): 6 (MET) Expression (FIM): 5 (MET) Social Interaction(FIM): 6 (MT) Problem Solving(FIM): 6 (MET) Memory(FIM): 5 (MET) 1=Demonstrate adherence to instructed precautions during ADL tasks. 2=Patient will verbalize/demonstrate understanding of assistive devices/ modifications for ADL. 3=Patient will improve strength/tolerance for activity to enable patient to perform ADL's. OT Education/Plan Discharge Recommendations Plan/Recommendations: Continue POC Treatment Plan/Plan of Care Patient would benefit from OT for education, treatment and training to promote independence in ADL's, mobility, safety and/or upper extremity function for ADL' s. Plan of Care: ADL Retraining, Functional Mobility, Group Exercise/Act as Ind, UE Funct Exercise/Act Treatment Duration: Sep 07, 2017 Frequency: At least 5 of 7 days/Wk (IRF) Estimated Hrs Per Day: 1.5 hours per day Agreement: Yes Rehab Potential: Good Time/GCodes Start Time: 06:50 Stop Time: 08:20 Total Time Billed (hr/min): 90 Billed Treatment Time 1 visit-ADL 6 (90 min) ALEXANDRIA RINALDI Sep 02, 2017 07:19
[2017-09-02] MEDS: LEVETIRACETAM 500 MG (KEPPRA) TAB PO SCH ×2 (08:38→20:56)
[2017-09-02] MEDS: VITAMIN D3 1,000 UNITS (CHOLECALCIFEROL) TABLET PO SCH (08:38)
[2017-09-02] MEDS: DOCUSATE SODIUM 100 MG (COLACE) CAP PO SCH ×2 (08:38→20:56)
[2017-09-02] MEDS: METHOCARBAMOL 500 MG (ROBAXIN) TABLET PO SCH ×2 (08:38→20:56)
[2017-09-02] MEDS: LIDOCAINE (LIDODERM) 5% PATCH TOP SCH (08:39)
[2017-09-02] MEDS: ASPIRIN E.C. 81 MG (ECOTRIN) TAB PO SCH (08:39)
[2017-09-02] MEDS: prednisoLONE 1% OPTH (PRED FORTE) 5 ML BTL OU SCH ×2 (08:41→20:50)
--- NOTE | 2017-09-02 08:42 | PM & R (SOAP) Progress Note ---
Subjective Time Seen by Provider: 08:30 Subjective/Events-last exam Patient was seen in her room this AM All set for discharge tomorrow Discussed discharge meds with patient and f/u with her [facility]urgeon at [facility] later this month.Patient Modified Independent for transfers Objective Exam Last Set of Vital Signs Vital Signs Date Time Temp Pulse Resp B/P (MAP) Pulse Ox O2 Delivery O2 Flow Rate FiO2 09/02/17 05:06 98.1 89 20 107/69 (82) 94 Room Air Capillary Refill : I&O Intake and Output 09/02/17 00:00 Intake Total 1450 ml Balance 1450 ml Intake Oral 1350 ml IV Total 100 ml # Voids 9 # Bowel Movements 2 General: Alert, Oriented X3, Cooperative, No Acute Distress, Other (crani site healing well) HEENT: Atraumatic, PERRLA, EOMI, Mucous Memb Moist/[place], Other (as per above) Neck: Supple, No JVD Lungs: Clear to Auscultation Heart: Regular Rate Abdomen: Normal Bowel Sounds, Soft Extremities: No Edema Skin: Other (crani site healing well) Neuro: Sensation Intact, Other (Mild STM loss Strength 3+/5 BUES 4+/5 BLES) Results Lab Laboratory Tests 08/31/17 06:35: White Blood Count 17.5H, Red Blood Count 3.27L, Hemoglobin 9.8L, Hematocrit 30L , Mean Corpuscular Volume 92, Mean Corpuscular Hemoglobin 30, Mean Corpuscular Hemoglobin Concent 33, Red Cell Distribution Width 15.6H, Platelet Count 497H, Mean Platelet Volume 9.5 09/01/17 05:20: White Blood Count 15.0H, Red Blood Count 3.27L, Hemoglobin 9.7L, Hematocrit 30L , Mean Corpuscular Volume 91, Mean Corpuscular Hemoglobin 30, Mean Corpuscular Hemoglobin Concent 33, Red Cell Distribution Width 15.4H, Platelet Count 534H, Mean Platelet Volume 9.5 09/02/17 06:55: White Blood Count 10.0, Red Blood Count 3.47L, Hemoglobin 10.4L, Hematocrit 31L , Mean Corpuscular Volume 91, Mean Corpuscular Hemoglobin 30, Mean Corpuscular Hemoglobin Concent 33, Red Cell Distribution Width 15.1H, Platelet Count 576H, Mean Platelet Volume 8.8, Neutrophils (%) (Auto) 59, Lymphocytes (%) (Auto) 28, Monocytes (%) (Auto) 7, Eosinophils (%) (Auto) 5, Basophils (%) (Auto) 1, Neutrophils # (Auto) 5.9, Lymphocytes # (Auto) 2.8, Monocytes # (Auto) 0.7, Eosinophils # (Auto) 0.5H, Basophils # (Auto) 0.1 Microbiology 08/29/17 Blood Culture - Preliminary, Resulted No growth 08/30/17 C. difficile GDH Antigen & Toxins - Final, Complete Assessment/Plan Assessment S/P Crani and excision rt temtpral Meningioma Post op Headaches Post op anemia Post op seizure prophylaxis on Keppra Post op DVT Prophylaxis on Heparin SQ-now d/cd HX of Breast CA Postop constipation treated C DIF Bowel colitis improving with RX associated with Postop leukocytosis with low grade fever as well as elevated Lactic acid.-all improving RT Facial numbness-improving Plan Continue PT/OT F/U with DR Ramsay prn D/C crani saul-done Trend labs and continue antibiotics Team Conference held 08-31-17 -See report for full functional update and POC and ELOS Discharge set for tomorrow 09-03-17 D/C Subcut Heparin See orders F/U with [facility] and PCP See orders Current meds reviewed JANNETH BECKFORD MD Sep 02, 2017 08:42
[2017-09-02] MEDS ORDERED: Oxycodone Hcl PO (08:48)
[2017-09-02] MEDS ORDERED: PRED5DRO17 OU (08:48)
[2017-09-02] MEDS ORDERED: METH500T7 PO (08:48)
[2017-09-02] MEDS ORDERED: LEVE500T6 PO (08:48)
--- NOTE | 2017-09-02 09:57 | Physical Therapy Daily Note ---
PT Daily Note-Current Subjective Pt. up ad ahmet in room, states she is feeling so much better and cant wait to go home. Inquires as to how she and her family should handle the C diff after she gets home to prevent her family from getting it from her. This FINANCIAL SALES ADVISOR will involve inf control for advisement Pain Numeric Pain Scale: 0-No Pain Mental Status Patient Orientation: Normal For Age Transfers Functional [place] Measure 0=Not Assessed/NA 4=Minimal Assistance 1=Total Assistance 5=Supervision or Setup 2=Maximal Assistance 6=Modified [place] 3=Moderate Assistance 7=Complete IndependenceIRFPAI Quality Coding Scale 6 Independent with activity with or without an assistive device 5 Patient requires set up or clean up by helper. Patient completes activity by themselves 4 Supervision or touching assist (CGA). [place] provide cues , steadying assist 3 The helper provides less than half the effort to complete the activity 2 The helper provides more than half the effort to complete the activity 1 Dependent. The helper does all the effort to complete an activity 7 Patient refused to complete or attempt activity 9 The patient did not perform the activity before the current illness or injury 88 Not attempted due to Medical conditions or safety concerns Transfers (B, C, W/C) (FIM): 7 Scootin Rollin Roll Left to Right (QC): 7 Supine to/from Sit: 7 Sit to/from Stand: 7 Sit to Lying (QC): 7 Sit to Stand (QC): 7 Chair/Bzc-tw-Mvyki Xfer(QC): 7 Bed to/from Chair: 7 Car Transfer (QC): 7 Weight Bearing Right Lower Extremity: Right Full Weight Bearing Left Lower Extremity: Left Full Weight Bearing Gait Training Does the Patient Walk?: Yes Gait (FIM): 7 Distance (FIM): 3=150 ft (500plus) Walk 10 feet (QC): 7 Walk 50 ft with 2 Turns(QC): 7 Walk 150 ft (QC): 7 Walking 10ft/uneven surface-QC: 7 Gait Level of Assist: 7 Gait Persons Needed: 0 Gait Assistive Device: None about room with many turns, no LOB Wheelchair Training Does the Pt Use a Wheelchair?: No Balance Picking up an Object (QC): 7 Exercises Seated Therapy Exercises: Ankle pumps, Sit to stand, Long arc quads, Hip flexion, Hip abd/add Seated Reps: 15 Standing: Hip Abduction, Hamstring curls, Heel/toe raises, Marching, Mini squats, Sit to Stand Standing Reps: 12 Assessment Current Status: Excellent Progress up ad ahmet, toilets indep etc. PT Short Term Goals Short Term Goals Time Frame: Aug 31, 2017 Transfers (B,C,W/C) (FIM): 5 Gait (FIM): 5 Gait Distance Comment: 200 feet Gait Level of Assist: 5 Gait Assistive Device: FWW PT Music Artist Goals Music Artist Goals PT Music Artist Goals Time Frame: Sep 14, 2017 Transfers (B,C,W/C) (FIM): 6 Sit to Lying (QC): 6 Lying-Sitting on Side/Bed(QC): 6 Sit to Stand (QC): 6 Rollin Roll Left to Right (QC): 6 Chair/Dbf-vz-Qzxsw Xfer(QC): 6 Car Transfer (QC): 6 Does the Patient Walk: Yes Gait (FIM): 6 Distance: 150 feet Walk 10 feet (QC): 6 Walk 10ft-Uneven Surface(QC): 6 Walk 50ft with 2 Turns (QC): 6 Walk 150 ft (QC): 6 Gait Level of Assist: 6 Gait Assistive Device: FWW Does the Pt use WC or Scooter?: No Stairs (FIM): 5 # of Steps: 12 1 Step (curb) (QC): 4 4 Steps (QC): 4 12 Steps (QC): 4 Stairs Level Of Assist: 5 Picking up an Object (QC): 5 PT Plan Treatment/Plan Treatment Plan: Continue Plan of Care Treatment Plan: Bed Mobility, Education, Functional Activity Dorothy, Functional Strength, Group Therapy, Gait, Safety, Therapeutic Exercise, Transfers Treatment Duration: Sep 14, 2017 Frequency: At least 5 of 7 days/Wk (IRF) Estimated Hrs Per Day: 1.5 hours per day Patient and/or Family Agrees t: Yes Safety Risks/Education Patient Education: Gait Training, Transfer Techniques Teaching Recipient: Patient Teaching Methods: Demonstration, Discussion Response to Teaching: Verbalize Understanding, Return Demonstration, Reinforcement Needed Time/GCodes Time In: 900 Time Out: 1000 Total Billed Treatment Time: 60 Total Billed Treatment 1,GT25m,EX20m,FA15m G Codes Necessary: No RENEE SALINAS PTA Sep 02, 2017 09:57
--- NOTE | 2017-09-02 13:32 | Physical Therapy Daily Note ---
PT Daily Note-Current Subjective Agrees to PT. Looking forward to discharging home tomorrow. Transfers Functional [place] Measure 0=Not Assessed/NA 4=Minimal Assistance 1=Total Assistance 5=Supervision or Setup 2=Maximal Assistance 6=Modified [place] 3=Moderate Assistance 7=Complete IndependenceIRFPAI Quality Coding Scale 6 Independent with activity with or without an assistive device 5 Patient requires set up or clean up by helper. Patient completes activity by themselves 4 Supervision or touching assist (CGA). [place] provide cues , steadying assist 3 The helper provides less than half the effort to complete the activity 2 The helper provides more than half the effort to complete the activity 1 Dependent. The helper does all the effort to complete an activity 7 Patient refused to complete or attempt activity 9 The patient did not perform the activity before the current illness or injury 88 Not attempted due to Medical conditions or safety concerns Transfers (B, C, W/C) (FIM): 7 Car Transfer (QC): 6 Indep with all transfers even including a park bench outside. Weight Bearing Right Lower Extremity: Right Full Weight Bearing Left Lower Extremity: Left Full Weight Bearing Gait Training Gait (FIM): 7 Distance (FIM): 3=150 ft Walk 10 feet (QC): 6 Walk 50 ft with 2 Turns(QC): 6 Walk 150 ft (QC): 6 Walking 10ft/uneven surface-QC: 6 (outdoor surfaces) Stair Training Stairs (FIM): 7 #of Steps: 12 1 Step (curb) (QC): 7 4 Steps (QC): 6 12 Steps (QC): 6 Treatments Pt ambualted outdoor surfaces and indoors >800 ft indep. Assessment Current Status: Excellent Progress Meeting PT goals. PT Short Term Goals Short Term Goals Time Frame: Aug 31, 2017 Transfers (B,C,W/C) (FIM): 5 Gait (FIM): 5 Gait Distance Comment: 200 feet Gait Level of Assist: 5 Gait Assistive Device: FWW PT [employer] Machine Operator Goals Fci Goals PT Fci Goals Time Frame: Sep 14, 2017 Transfers (B,C,W/C) (FIM): 6 Sit to Lying (QC): 6 Lying-Sitting on Side/Bed(QC): 6 Sit to Stand (QC): 6 Rollin Roll Left to Right (QC): 6 Chair/Tdk-dp-Tpsey Xfer(QC): 6 Car Transfer (QC): 6 Does the Patient Walk: Yes Gait (FIM): 6 Distance: 150 feet Walk 10 feet (QC): 6 Walk 10ft-Uneven Surface(QC): 6 Walk 50ft with 2 Turns (QC): 6 Walk 150 ft (QC): 6 Gait Level of Assist: 6 Gait Assistive Device: FWW Does the Pt use WC or Scooter?: No Stairs (FIM): 5 # of Steps: 12 1 Step (curb) (QC): 4 4 Steps (QC): 4 12 Steps (QC): 4 Stairs Level Of Assist: 5 Picking up an Object (QC): 5 PT Plan Problem List Problem List: Activity Tolerance Treatment/Plan Treatment Plan: Continue Plan of Care (dc tomorrow) Treatment Plan: Bed Mobility, Education, Functional Activity Dorothy, Functional Strength, Group Therapy, Gait, Safety, Therapeutic Exercise, Transfers Treatment Duration: Sep 14, 2017 Frequency: At least 5 of 7 days/Wk (IRF) Estimated Hrs Per Day: 1.5 hours per day Patient and/or Family Agrees t: Yes Discharge Recommendations Plan DC tomorrow. Time/GCodes Time In: 1225 Time Out: 1255 Total Billed Treatment Time: 30 Total Billed Treatment vsiit FA 30 ALEXANDRIA FRANCES PT Sep 02, 2017 13:32
[2017-09-02] MEDS ORDERED: METR500T PO (13:34)
[2017-09-02] MEDS: ACETAMINOPHEN 325 MG TABLET/CAPLET (TYLENOL) PO PRN (15:21)
[2017-09-02 18:23] VITALS: BP 115/71
[2017-09-02] MEDS: LOTEPREDNOL OPTH OU SCH (20:53)
[2017-09-02] MEDS: GABAPENTIN 600 MG (NEURONTIN) TAB PO SCH (20:56)
[2017-09-02] MEDS: LIDODERM PATCH REMOVAL TP SCH (22:02)
[2017-09-03 05:49] VITALS: BP 101/68
[2017-09-03] MEDS: MULTIVIT W/MINERALS TAB (THERAGRAN M) PO SCH (06:00)
[2017-09-03] MEDS: CALCIUM CARBONATE 600 MG (CALCARB) TAB PO SCH (06:00)
[2017-09-03] MEDS: VANCOMYCIN ORAL 250 MG/5 ML 60 ML PO SCH ×2 (06:00)
[2017-09-03] MEDS: VITAMIN D3 1,000 UNITS (CHOLECALCIFEROL) TABLET PO SCH (08:27)
[2017-09-03] MEDS: LIDOCAINE (LIDODERM) 5% PATCH TOP SCH (08:27)
[2017-09-03] MEDS: DOCUSATE SODIUM 100 MG (COLACE) CAP PO SCH (08:27)
[2017-09-03] MEDS: METHOCARBAMOL 500 MG (ROBAXIN) TABLET PO SCH (08:27)
[2017-09-03] MEDS: LEVETIRACETAM 500 MG (KEPPRA) TAB PO SCH (08:27)
[2017-09-03] MEDS: ASPIRIN E.C. 81 MG (ECOTRIN) TAB PO SCH (08:27)
[2017-09-03] MEDS: prednisoLONE 1% OPTH (PRED FORTE) 5 ML BTL OU SCH (08:28)
[2017-09-03 09:30] VITALS: BP 111/65
--- NOTE | 2017-09-05 08:59 | Therapy Team Discharge Summary ---
Therapy Discharge Summary Discharge Recommendations Date of Discharge Sep 03, 2017 at 09:30 Therapy D/C Recommendations: Home w/ Family Support Occupational Therapy Pt. seen by occupational therapy to increase overall strength and independence. Pt. has met all goals. Pt. is independent to complete ADL skills including bathing/dressing/grooming/ambulation. Pt. transferred home with assist of her spouse. No equipment needs. No further OT needs required. Decreased Activ Tolerance PT Longterm Goals Longterm Goals PT Longterm Goals Time Frame: Sep 14, 2017 Transfers (B,C,W/C) (FIM): 6 Roll Left to Right (QC): 6 Sit to Lying (QC): 6 Lying-Sitting on Side/Bed(QC): 6 Sit to Stand (QC): 6 Chair/Lrm-at-Gdrmu Xfer(QC): 6 Car Transfer (QC): 6 Does the Patient Walk: Yes Gait (FIM): 6 Distance: 150 feet Walk 10 feet (QC): 6 Walk 10ft-Uneven Surface(QC): 6 Walk 50ft with 2 Turns (QC): 6 Walk 150 ft (QC): 6 Gait Level of Assist: 6 Gait Assistive Device: FWW Does the Pt use WC or Scooter?: No Stairs (FIM): 5 # of Steps: 12 1 Step (curb) (QC): 4 4 Steps (QC): 4 12 Steps (QC): 4 Stairs Level Of Assist: 5 Picking up an Object (QC): 5 OT Longterm Goals Longterm Goals Time Frame: Sep 07, 2017 Eating (FIM): 6 (met-09/02/2017) Eating (QC): 6 (met-09/02/2017) Oral Hygiene (QC): 6 (met09/02/2017) Grooming(FIM): 6 (met09/02/2017) Bathing(FIM): 5 (met-09/02/2017) Shower/Bathe Self (QC): 5 (met-09/02/2017) Upper Body Dressing(FIM): 6 (met-09/02/2017) Upper Body Dressing (QC): 6 (met-09/02/2017) Lower Body Dressing(FIM): 6 (met-09/02/2017) Lower Body Dressing (QC): 6 (met-09/02/2017) On/Off Footwear (QC): 6 (met-09/02/2017) Toileting(FIM): 6 (met-09/02/2017) Toileting Hygiene (QC): 6 ([facility]-09/02/2017) Transfers (B,C,W/C) (FIM): 6 ([facility]-09/02/2017) Toilet/Commode Transfer(FIM): 6 ([facility]-09/02/2017) Toilet/Commode Transfer (QC): 6 ([facility]-09/02/2017) Shower Transfer(FIM): 5 (met-09/02/2017) Comprehension(FIM): 6 (MET) Expression (FIM): 5 (MET) Social Interaction(FIM): 6 (MT) Problem Solving(FIM): 6 (MET) Memory(FIM): 5 (MET) 1=Demonstrate adherence to instructed precautions during ADL tasks. 2=Patient will verbalize/demonstrate understanding of assistive devices/ modifications for ADL. 3=Patient will improve strength/tolerance for activity to enable patient to perform ADL's. Speech Longterm Goals Tax Processor Goals 1. The patient will demonstrate improved cognitive skill, most notably, short- term memory for recall of ADL information for increased safety and function in the least restrictive setting. Time Frame: One Week Comprehension: 6 (MET) Expression: 5 (MET) Social Interaction: 6 (MT) Problem Solvin (MET) Memory: 5 (MET) TAHIR MARTINEZ OT Sep 05, 2017 08:59
== END 2017-09-03 09:30 | disposition home or self-care (01) | DRG 949 ==
PROVIDERS: ADMIT Physical Medicine & Rehabilitation; ATTEND Physical Medicine & Rehabilitation
DX: Z48.3 Aftercare following surgery for neoplasm (principal); D32.0 Benign neoplasm of cerebral meninges; R53.1 Weakness; R41.3 Other amnesia; R20.0 Anesthesia of skin; A04.72 Enterocolitis due to Clostridium difficile, not specified as recurrent; J44.9 Chronic obstructive pulmonary disease, unspecified; R51 Headache; D64.9 Anemia, unspecified; K59.09 Other constipation; I95.9 Hypotension, unspecified; Z85.3 Personal history of malignant neoplasm of breast
CPT/HCPCS: 36415; 71046; 74018; 80053; 81000; 83605; 85007; 85025; 85027; 87040; 87324; 87449

== ENCOUNTER → 2021-06-23 | Outpatient (CLI) | payer MEDICARE, OTHER ==
[~2021-06-23] MED LIST: ACET325T38 PO; ALEN70TA80 PO; ASPI-1238 PO; CALC1TAB PO; CARB15DR3 OU; CHOL10007 PO; GABA-488 PO; LEVE500T6 PO; LIDO700A45 TP; LOTE3.5O OU; MELO15TA39 PO; METH-731 PO; METR500T PO; Oxycodone Hcl PO; PRED5DRO17 OU; TROL85CR TP; VITA1TAB17 PO
--- NOTE | 2021-06-23 15:24 | Diagnostic Imaging Report ---
INDICATION: Postmenopausal screening COMPARISON: Baseline FINDINGS: AP Spine L1-L4: [BMD (g/cm2): 0.946] [T-Score: -2.1] [Z-Score: -0.7] [BMD Previous: na] [BMD % Change: na] LT Hip Neck: [BMD (g/cm2): 0.798] [T-Score: -1.7] [Z-Score: -0.3] LT Hip Total: [BMD (g/cm2):0.743] [T-Score:-2.1] [Z-Score: -1.0] [BMD Previous: na] [BMD % Change: na] RT Hip Neck: [BMD (g/cm2):0.755] [T-Score:-2.0] [Z-Score:-0.7] RT Hip Total: [BMD (g/cm2):0.850] [T-score:-1.3] [Z-Score:-0.2] [BMD Previous:na] [BMD % Change:na] *Indicates significant change from prior examination based on 95% confidence level. World Health Organization criteria for BMD interpretation classify patients as Normal (T-score at or above -1.0), Osteopenic (T-score between -1.0 and -2.5) or Osteoporotic (T-score at or below -2.5). LIMITATIONS AND MODIFICATION: None. FRACTURE RISK (FRAX SCORE): The ten year probability of (%): Major Osteoporotic Fracture: [9.4] Hip Fracture: [1.3] IMPRESSION: 1. Osteopenia (Low bone mass). 2. Baseline examination. 3. See below National Osteoporosis Foundation guidelines on when to potentially initiate pharmacologic therapy. Based on the National Osteoporosis Foundation Guidelines, pharmacologic treatment should be initiated in any of the following, unless clinical conditions suggest otherwise: * Any patient with prior fragility fracture of the hip or vertebrae. A spine fracture indicates 5X risk for subsequent spine fracture and 2X risk for subsequent hip fracture. * Osteoporosis (T-score <-2.5). * Postmenopausal women and men age 50 and older with low bone mass/osteopenia (T-score between -1.0 and -2.5) by DXA and 10-year major osteoporotic fracture greater than 20% or a 10-year probability of hip fracture greater than 3%. These fracture risks are supplied above in the FRAX score, if applicable. * Clinician judgement and/or patient preferences may indicate treatment for people with 10-year fracture probabilities above or below these levels. Dictated by: Dictated on workstation # [id number]
== END ==
LOC: RAD 12:30
PROVIDERS: ATTEND Family Medicine
DX: M85.80 Other specified disorders of bone density and structure, unspecified site (principal); Z78.0 Asymptomatic menopausal state; Z85.3 Personal history of malignant neoplasm of breast
CPT/HCPCS: 77080

== ENCOUNTER → 2021-09-03 | Outpatient (CLI) | payer MEDICARE, OTHER ==
--- NOTE | 2021-09-03 16:33 | Diagnostic Imaging Report ---
INDICATION: Routine screening. COMPARISON is made with prior mammograms from 08/21/2020 and 08/16/2019. Unilateral left 2-D and 3-D screening mammography was performed with CAD. Scattered fibroglandular densities are identified in the left breast. There are benign calcifications in the left breast. No mass or malignant-appearing microcalcification are seen. Left axilla is unremarkable. IMPRESSION: BI-RADS Category 2 No mammographic features suspicious for malignancy are identified. ACR BI-RADS Category 2: Benign findings. Result letter will be mailed to the patient. Note: At least 10% of breast cancer is not imaged by mammography. Dictated by: Dictated on workstation # [id number]
== END ==
LOC: RAD 11:15
PROVIDERS: ATTEND Family Medicine
DX: Z12.31 Encounter for screening mammogram for malignant neoplasm of breast (principal)
CPT/HCPCS: 77063

== ENCOUNTER → 2021-10-26 | Outpatient (CLI) | payer MEDICARE, OTHER ==
--- NOTE | 2021-10-26 17:18 | Diagnostic Imaging Report ---
EXAMINATION: Left hip unilateral 2 or 3 views (w/pelvis when done) HISTORY: GREATER TROCHANTERIC BURSITIS OF LT HIP pain COMPARISON: None available. FINDINGS: There is narrowing, spurring and subchondral sclerosis along the femoral head and adjacent acetabulum. Slight flattening of the femoral head is seen medially with possible associated avascular necrosis. There are no fractures or dislocations. There are multiple well-corticated osseous fragments proximal to the greater trochanter, perhaps there is heterotopic ossification. IMPRESSION: 1. Diffuse chronic degenerative findings throughout the hip as described with superimposed AVN not excluded. If there is concern for such a process, MRI could provide further characterization. IMPRESSION: No acute fracture. Dictated by: Dictated on workstation # [id number]
== END ==
LOC: RAD 14:14
PROVIDERS: ATTEND Registered Nurse
DX: M16.12 Unilateral primary osteoarthritis, left hip (principal); M70.62 Trochanteric bursitis, left hip
CPT/HCPCS: 73502

== ENCOUNTER → 2021-12-24 | Outpatient (CLI) | payer MEDICARE, OTHER ==
[~2021-12-24] MED LIST changes: +GADOTERATE 0.5 MMOL/ML (CLARISCAN) 15 ML VIAL IV ONE
--- NOTE | 2021-12-24 10:43 | Diagnostic Imaging Report ---
PROCEDURE: MRI left joint lower extremity without contrast. TECHNIQUE: Multiplanar, multisequence non contrast-enhanced MRI of the left hip was accomplished. INDICATION: Left hip pain COMPARISON: 10/26/2021. FINDINGS: Left hip: Severe/end-stage degenerative arthritis of the left hip is present. This is characterized by complete articular cartilage loss in the central aspect of the hip, marginal osteophytes and subchondral bone marrow edema. Additionally, there is a mineralized 12 x 14 mm loose body in the inferior aspect of the joint. Degenerative macerated tearing within the labrum. Muscles and tendons: The gluteus medius and minimus are intact. Distal iliopsoas tendon is intact. Proximal hamstring complex is normal. Adductor musculature is normal on the left. Bones: No avascular necrosis in the femoral heads. No stress fracture within the pelvis. No features of sacroiliitis. Other: No free pelvic fluid. No pelvic or inguinal lymphadenopathy. Uterus is normal in appearance. No adnexal mass. IMPRESSION: 1. Severe osteoarthritis of the left hip. 2. No acute muscle strain or tendon tear. Dictated by: Dictated on workstation # [id number]
== END ==
LOC: RAD 07:31
PROVIDERS: ATTEND Registered Nurse
DX: M16.12 Unilateral primary osteoarthritis, left hip (principal)
CPT/HCPCS: 73721

== ENCOUNTER → 2022-06-24 | Outpatient (CLI) | payer MEDICARE, OTHER ==
[~2022-06-24] MED LIST changes: -GADOTERATE 0.5 MMOL/ML (CLARISCAN) 15 ML VIAL IV ONE
--- NOTE | 2022-06-24 12:35 | Diagnostic Imaging Report ---
PROCEDURE: MRI lumbar spine. TECHNIQUE: Multiplanar, multisequence MRI of the lumbar spine was performed without contrast. INDICATION: Chronic back pain. No priors for comparison. Correlated with abdominal radiograph performed in 2018. FINDINGS: There is severe leftward convexity lumbar rotoscoliosis curvature with mild grade 1 left lateral listhesis L3 on L4 and L2 on L3. Magnitude of curvature mildly increased from prior. The mild lateral listhesis showed no obvious change from prior. In the sagittal views there is no anterior or posterior listhesis of the lumbar statures themselves are stable and within normal limits. The lower thoracic cord and conus appeared unremarkable. There is a normal dispersal of the nerves of the cauda equina. There are multiple bilateral renal parapelvic cysts. There is no lumbar marrow edema. No bony destructive process. T12-L1: Right-sided facet arthrosis and endplate spurring result in a mild degree of right foraminal narrowing. L1-L2: Some right-sided facet arthrosis in the scoliotic curvature result in a moderate severity of right foraminal narrowing, the left foramen and canal patent. L2-L3: There is borderline mild right foraminal narrowing with right greater than left facet arthrosis. There is some disc desiccation and mild disc bulge with endplate osteophytes. No significant canal stenosis. L3-L4: There is facet arthrosis, disc bulge and endplate osteophytes, facet disease greater left. There is moderate left and mild right foraminal narrowing with a mild central canal stenosis. L4-L5: There is facet arthrosis, thickened ligament flava, disc desiccation, disc bulge and endplate osteophytes. Spondylosis most severe on the left where there is some mild fatty Modic type II endplate changes. There is moderate degree of left and mild right foraminal narrowing. There is mild central canal stenosis. There is mild to moderate left lateral recess impingement. L5-S1: Hypertrophic degenerative facet arthrosis, mild disc desiccation, bulge and endplate osteophytes result in moderate left and mild right foraminal narrowing, mild central canal stenosis and mild to moderate left greater than right lateral recess impingement. Impression: Increased scoliotic curvature with unchanged grade 1 multilevel lateral listhesis. No sagittal listhesis, compression deformity or fracture pattern. No acute bony pathology. There are multilevel foraminal, recess and canal stenoses detailed level by level above with no acute appearing pathology. Dictated by: Dictated on workstation # [id number]
== END ==
LOC: RAD 10:15
PROVIDERS: ATTEND Nurse Practitioner
DX: M47.25 Other spondylosis with radiculopathy, thoracolumbar region (principal); M47.26 Other spondylosis with radiculopathy, lumbar region; M47.27 Other spondylosis with radiculopathy, lumbosacral region; M51.16 Intervertebral disc disorders with radiculopathy, lumbar region; M51.17 Intervertebral disc disorders with radiculopathy, lumbosacral region; M48.05 Spinal stenosis, thoracolumbar region; M48.061 Spinal stenosis, lumbar region without neurogenic claudication; M48.07 Spinal stenosis, lumbosacral region
CPT/HCPCS: 72148

== ENCOUNTER → 2022-09-09 | Outpatient (CLI) | payer MEDICARE, OTHER ==
--- NOTE | 2022-09-09 12:36 | Diagnostic Imaging Report ---
INDICATION: Routine screening. COMPARISON: 09/03/2021 and 08/21/2020. TECHNIQUE: Unilateral left 2D and 3D screening mammography was performed with CAD. FINDINGS: Scattered fibroglandular densities are identified. There are benign calcifications in the left breast. No mass or malignant-appearing microcalcifications are seen. The left axilla is unremarkable. IMPRESSION: No mammographic features suspicious for malignancy are identified. ACR BI-RADS Category 2: Benign findings. Result letter will be mailed to the patient. Note: At least 10% of breast cancer is not imaged by mammography. Dictated by: Dictated on workstation # [id number]
== END ==
LOC: RAD 10:51
PROVIDERS: ATTEND Family Medicine
DX: Z12.31 Encounter for screening mammogram for malignant neoplasm of breast (principal)
CPT/HCPCS: 77063

== ENCOUNTER → 2022-10-22 | Outpatient (CLI) | payer MEDICARE, OTHER ==
--- NOTE | 2022-10-22 16:44 | Diagnostic Imaging Report ---
EXAMINATION: Chest, two views. HISTORY: Cough. COMPARISON: 08/29/2017. FINDINGS: The lungs are clear without edema or pneumonia. No pleural effusion or pneumothorax. Heart size is normal. There is levocurvature of the thoracolumbar spine. There is a calcified granuloma in the left lung base. IMPRESSION: 1. Clear lungs. Dictated by: Dictated on workstation # [id number]
== END ==
LOC: RAD 13:02
PROVIDERS: ATTEND Family Medicine
DX: J18.9 Pneumonia, unspecified organism (principal)
CPT/HCPCS: 71046

== ENCOUNTER → 2023-01-10 | Outpatient (CLI) | payer MEDICARE, OTHER | LOC: CARD 14:10 | PROVIDERS: ATTEND Internal Medicine Cardiovascular Disease | DX: R06.00 Dyspnea, unspecified (principal) | CPT/HCPCS: 93306 ==